=== PATIENT | female | born 1995 | race Caucasian/White ===

== ENCOUNTER 2023-05-02 11:08 | Emergency (ER) | payer OTHER, SELFPAY ==
[2023-05-02 11:26] VITALS: BP 129/76; PULSE 84; RESP 16; TEMP 37; O2SAT 98
[2023-05-02] MEDS: KETOROLAC (*BKC) 60 MG/2 ML VIAL IM (13:21)
--- NOTE | 2023-05-02 13:27 | ED.SKABFB ---
HPI - Skin/Abscess/Foreign Bdy General Chief complaint: Skin/Abscess/Foreign Body Stated complaint: rash for a few months Time Seen by Provider: 05/02/23 12:05 Source: patient and RN notes reviewed Mode of arrival: ambulatory Limitations: no limitations History of Present Illness HPI narrative: THis is a 27 year old female who presents for rash for months. Patient has itchy scaly rash in her scalp. She also reports rash to her arms. She reports she has been to multiple urgent cares and clinics but no one will prescribe her medication. She is using aveeno lotion and sensitive sore. She reports sore ness in joints. She denies fever. She is taking tylenol for her pain. Related Data Allergies Allergy/AdvReac Type Severity Reaction Status Date / Time No Known Allergies Allergy Verified 05/02/23 13:21 Review of Systems Musculoskeletal: Musculoskeletal: Reports arthralgias Integumentary/Breasts: Skin/Breast: Reports rash PMFSH Past Medical History Medical History Fibromyalgia Exam Const: General: no acute distress and alert Nutritional Appearance: well nourished Orientation/consciousness: patient oriented x3 Eyes: EOM: EOMs intact bilaterally Resp: Effort & Inspection: normal respiratory effort Skin: Other: patient has red squamous rash in patches on left forearm volar surface, right forearm dorsum, left lateral neck that look like eczema. She does have scaly rash in posterior scalp, no drainage no merritt crusting, no induration. Neuro: General: moves all extremities and CN's II-XI intact bilaterally Extrem: General: full ROM and other (no joint swelling , no rashes over joints) Course Vital Signs Vital signs: Vital Signs Temperature 98.6 F 05/02/23 11:26 Pulse Rate 84 05/02/23 11:26 Respiratory Rate 16 05/02/23 11:26 Blood Pressure 129/76 05/02/23 11:26 Pulse Oximetry 98 05/02/23 11:26 Oxygen Delivery Room Air 05/02/23 11:26 Temperature 98.6 F 05/02/23 11:26 Pulse Rate 84 05/02/23 11:26 Respiratory Rate 16 05/02/23 11:26 Blood Pressure 129/76 05/02/23 11:26 Pulse Oximetry 98 05/02/23 11:26 Oxygen Delivery Room Air 05/02/23 11:26 MDM - Skin/Abscess/Foreign Bdy Differential Diagnosis Differential diagnosis: Likely eczema, contact dermatitis and other (psoariasis) Discharge Plan Discharge Clinical Impression: Dermatitis Patient Disposition: Home, Self-Care Condition: Stable Instructions: Eczema (ED), Psoriasis (ED) Additional Instructions: Please read discharge instructions. Continue to follow up with your primary care provider in order to get your referral to [facility] as they will need to confirm your diagnosis and start your [facility] treatment. Prescriptions: New methylprednisolone [Medrol (Carlin)] 4 mg tablets,dose pack See Rx Instructions .ROUTE .COMPLEX Qty: 21 0RF Rx Instructions: orally per package directions naproxen 500 mg tablet 500 mg PO BID PRN (Reason: pain) Qty: 30 0RF hydrocortisone 2.5 % cream 1 applic topical BID PRN (Reason: rash) Qty: 30 0RF Follow-up/Referrals: PHYSICIAN NOT ON STAFF,NONSTAFF [Primary Care Provider] -
== END 2023-05-02 13:58 | disposition home or self-care (01) ==
PROVIDERS: Emergency Provider General Practice
DX: L30.9 Dermatitis, unspecified (principal); M79.7 Fibromyalgia
CPT/HCPCS: 96372; 99283; J1885

== ENCOUNTER 2023-11-29 12:45 | Observation (INO) | payer OTHER, SELFPAY ==
[2023-11-29] VITALS (20 sets, daily range): BP systolic 112–133; BP diastolic 65–82; PULSE 78–99; RESP 12–28; TEMP 36.6; O2SAT 99–100; BMI 21.7
--- NOTE | ~2023-11-29 | CT_ITS ---
EXAMINATION: CT cervical spine wo con DATE: 11/29/2023 13:40 INDICATION: Bilateral arm numbness. TECHNIQUE: Computed tomography (CT) of the cervical spine was performed without intravenous contrast. Automated exposure control and iterative reconstruction technique were employed. The dose-length pro duct was 147.92 mGy-cm. COMPARISON: None FINDINGS: There is kyphosis of cervical spine. There is a chronic compression fracture of T4 with les s than 1/5 loss of height. There is 7 degrees levocurvature of cervical thoracic spine. Intervertebra l disc heights are normal. The following disc levels are specifically discussed: C2-C3: There is no uncovertebral joint osteoarthritis. There is severe left facet joint osteoarthriti s. There is no neural foraminal stenosis. There is no central canal stenosis. C3-C4: There is no uncovertebral joint osteoarthritis. There is no facet joint osteoarthritis. There is no neural foraminal stenosis. There is no central canal stenosis. C4-C5: There is no uncovertebral joint osteoarthritis. There is no facet joint osteoarthritis. There is no neural foraminal stenosis. There is no central canal stenosis. C5-C6: There is no uncovertebral joint osteoarthritis. There is no facet joint osteoarthritis. There is no neural foraminal stenosis. There is no central canal stenosis. C6-C7: There is no uncovertebral joint osteoarthritis. There is no facet joint osteoarthritis. There is no neural foraminal stenosis. There is no central canal stenosis. C7-T1: There is no uncovertebral joint osteoarthritis. There is mild bilateral facet joint osteoarthr itis. There is no neural foraminal stenosis. There is no central canal stenosis. IMPRESSION: 1. Cervical facet joint osteoarthritis. Reviewed, dictated and finalized at location A.
--- NOTE | ~2023-11-29 | MR_ITS ---
EXAMINATION: MR thoracic spine wo/w con DATE: 11/30/2023 13:34 INDICATION: Intermittent weakness and numbness. TECHNIQUE: Magnetic resonance imaging (MRI) of the thoracic spine was performed without and with 11 m L MultiHance intravenous contrast. COMPARISON: None FINDINGS: There is 9 degrees levocurvature of the cervicothoracic spine. There is mild chronic height loss of T4 vertebral body. Intervertebral disc heights are normal. The disks do not extend beyond th e endplate margins. There is multilevel mild facet joint osteoarthritis. No neural foraminal stenosis or central canal stenosis. The spinal cord signal intensity is normal. IMPRESSION: 1. Mild thoracic facet joint osteoarthritis. Reviewed, dictated and finalized at location E.
--- NOTE | ~2023-11-29 | CT_ITS ---
EXAMINATION: CT brain wo con DATE: 11/29/2023 13:39 INDICATION: Right visual field loss. Bilateral arm numbness. TECHNIQUE: Computed tomography (CT) of the head was performed without intravenous contrast. The mA wa s adjusted according to patient size. Iterative reconstruction technique was employed. The dose-lengt h product was 681.00 mGy-cm. COMPARISON: None FINDINGS: There is no intracranial hemorrhage, acute infarction, or abnormal intracranial mass lesion . The ventricles are normal in size. The orbits are normal. There is mild mucosal thickening in the e thmoid sinuses. The mastoid air cells are normal. IMPRESSION: 1. Normal brain. Reviewed, dictated and finalized at location A. IMPRESSION: 1. Normal brain.
--- NOTE | ~2023-11-29 | MR_ITS ---
EXAMINATION: MR lumbar spine wo/w con DATE: 11/30/2023 13:34 INDICATION: Intermittent weakness/numbness . TECHNIQUE: Magnetic resonance imaging (MRI) of the lumbar spine was performed with 11 mL MultiHance i ntravenous contrast. Sequences included sagittal T2-weighted FSE, sagittal T2-weighted FS FSE, sagitt al T1-weighted FSE, and axial T2-weighted FSE. Postcontrast sequences included sagittal T1 FSE FS and axial T1 FSE FS. COMPARISON: None FINDINGS: The last fully formed and hydrated disc is designated L5-S1. The marrow signal is benign an d homogenous. Conus terminates at L1. Multilevel loss of disc height and hydration. The following dis c levels are specifically discussed: T12-L1: The disc does not extend beyond the endplate margin. There is no facet joint osteoarthritis. There is no neural foraminal stenosis. There is no central canal stenosis. L1-L2: The disc does not extend beyond the endplate margin. There is no facet joint osteoarthritis. T here is no neural foraminal stenosis. There is no central canal stenosis. L2-L3: The disc does not extend beyond the endplate margin. There is no facet joint osteoarthritis. T here is no neural foraminal stenosis. There is no central canal stenosis. L3-L4: Mild diffuse bulge. There is mild facet joint osteoarthritis. There is mild right inferior hilton ral foraminal stenosis. No left neural foraminal stenosis. There is no central canal stenosis. L4-L5: Mild diffuse bulge. Posterior disc rent. There is mild bilateral facet joint osteoarthritis. T here is mild bilateral inferior neural foraminal stenosis. There is mild central canal stenosis. L5-S1: Mild diffuse disc bulge. Posterior disc rent. There is mild bilateral facet joint osteoarthrit is. There is no neural foraminal stenosis. There is no central canal stenosis. IMPRESSION: Mild degenerative disc disease at L3-4 through L5-S1. Mild lower lumbar facet arthropathy. Reviewed, dictated and finalized at location K. IMPRESSION: Mild degenerative disc disease at L3-4 through L5-S1. Mild lower lumbar facet a rthropathy.
--- NOTE | ~2023-11-29 | MR_ITS ---
EXAMINATION: MR brain/brain stem wo/w con DATE: 11/30/2023 13:34 INDICATION: Visual field loss, intermittent weakness/numbness TECHNIQUE: Magnetic resonance imaging (MRI) of the brain and brainstem was performed with 11 mL Multi Demond intravenous contrast. Sequences included sagittal and axial T1-weighted SE, axial diffusion-shaye ghted FS EPI ASSET, axial T2*-weighted GRE, axial T2-weighted FLAIR Propeller, and axial T2-weighted Propeller. Postcontrast axial and coronal T1-weighted SE was obtained. Apparent diffusion coefficient (ADC) maps were created. COMPARISON: CT brain 11/29/2023. FINDINGS: No abnormal restricted diffusion to suggest acute ischemic infarct. No MRI evidence of hemorrhage or extra-axial collection. No suspicious foci of susceptibility to suggest prior intraparenchymal hemorr darell. Normal white matter signal. No evidence of advanced or lobar predominant parenchymal volume los s. The basilar cisterns are patent. Flow voids are preserved. Paranasal sinuses are within normal espana its. Globes and orbital contents are within normal limits. No abnormal enhancing lesion. IMPRESSION: Normal MR brain findings. Reviewed, dictated and finalized at location K. IMPRESSION: Normal MR brain findings.
--- NOTE | ~2023-11-29 | XR_ITS ---
EXAMINATION: XR chest 2V DATE: 11/29/2023 13:45 INDICATION: Lightheadedness. TECHNIQUE: Frontal and lateral views of the chest were obtained. COMPARISON: None. FINDINGS: There is no pneumonia, pleural effusion, or pneumothorax. The heart size is normal. IMPRESSION: 1. No acute cardiopulmonary disease. Reviewed, dictated and finalized at location A.
--- NOTE | ~2023-11-29 | MR_ITS ---
EXAMINATION: MR cervical spine wo/w con DATE: 11/30/2023 13:34 INDICATION: Intermittent weakness and numbness. TECHNIQUE: Magnetic resonance imaging (MRI) of the cervical spine was performed without and with 11 m L MultiHance intravenous contrast. COMPARISON: CT cervical spine 11/29/2023 FINDINGS: There is 8 degrees levocurvature of cervicothoracic spine. There is kyphosis of cervical sp ine. Vertebral body heights and intervertebral disc heights are normal. The spinal cord signal intens ity is normal. The following disc levels are specifically discussed: C2-C3: The disc does not extend beyond the endplate margin. There is no uncovertebral joint osteoarth ritis. There is moderate right and severe left facet joint osteoarthritis. There is mild left neural foraminal stenosis. There is no central canal stenosis. C3-C4: The disc does not extend beyond the endplate margin. There is no uncovertebral joint osteoarth ritis. There is no facet joint osteoarthritis. There is no neural foraminal stenosis. There is no vince tral canal stenosis. C4-C5: There is a central protrusion. There is no uncovertebral joint osteoarthritis. There is mild b ilateral facet joint osteoarthritis. There is no neural foraminal stenosis. There is no central canal stenosis. C5-C6: There is a central protrusion. There is mild bilateral uncovertebral joint osteoarthritis. The re is no facet joint osteoarthritis. There is no neural foraminal stenosis. There is no central canal stenosis. C6-C7: There is a central protrusion. There is mild bilateral uncovertebral joint osteoarthritis. The re is moderate right and mild left facet joint osteoarthritis. There is mild bilateral neural foramin al stenosis. There is no central canal stenosis. C7-T1: The disc does not extend beyond the endplate margin. There is no uncovertebral joint osteoarth ritis. There is severe right and moderate left facet joint osteoarthritis. There is mild right neural foraminal stenosis. There is no central canal stenosis. IMPRESSION: 1. Mild cervical spondylosis. Reviewed, dictated and finalized at location E.
[2023-11-29 13:36] LABS: Basophils Percent Auto 0.7 % (0.2-1.2); Eosinophils Absolute Auto 0.2 K/mm3 (0-0.3); Eosinophils Percent Auto 5.4 % (0-4.4); Hematocrit 35.9 % (37.0-47.0); Hemoglobin 11.5 g/dL (12.0-15.0); Immature Granulocyte Absolute 0.01 K/mm3 (0.00-0.031); Immature Granulocyte Percent A 0.2 % (0-0.5); Lymphocytes Absolute Auto 1.25 K/mm3 (0.9-3.2); Lymphocytes Percent Auto 28.2 % (18.3-44.2); Mean Corpuscular Hemoglobin 29.3 pg (26-34); Mean Corpuscular Volume 91.3 fl (80-100); Monocytes Absolute Auto 0.3 K/mm3 (0.1-0.6); Monocytes Percent Auto 6.3 % (2.6-8.5); Neutrophils Absolute Auto 2.6 K/mm3 (1.3-6.7); Neutrophils Percent Auto 59.2 % (45.5-73.1); Platelet Count Result 365 k/mm3 (150-375); Red Blood Count 3.93 M/mm3 (4.2-5.4); Red Cell Distribution Width 13.2 % (11.5-14.5); White Blood Count 4.4 K/mm3 (4.5-10.0)
[2023-11-29 13:48] LABS: Alanine Aminotransferase 22 U/L (6-35); Albumin Level 4.1 g/dL (3.5-5.1); Alkaline Phosphatase 42 U/L (38-126); Anion Gap 8 mmol/L (4-12); Aspartate Amino Transferase 23 U/L (14-36); Bilirubin,Total 0.4 mg/dL (0.2-1.3); Blood Urea Nitrogen 10 mg/dL (7-17); Calcium 9.2 mg/dL (8.4-10.2); Carbon Dioxide 22 mmol/L (22-30); Chloride 111 mmol/L (98-107); Estimated CRCL calculation 85 ml/min; Estimated Glomerular Filt Rate > 60; Glucose 94 mg/dL (65-110); Potassium 4.1 mmol/L (3.4-5.0); Sodium 141 mmol/L (137-145)
--- NOTE | 2023-11-29 14:02 | ED.NEUROSD ---
HPI - Neuro Symptoms/Deficit General Chief Complaint: Neuro Symptoms/Deficit Stated Complaint: numbness to extremities x4 days Time Seen by Provider: 11/29/23 12:55 History of Present Illness HPI Narrative: This is a 20 year female, with no significant past medical history, presents emergency department with several complaints. She states over the past 4 days, she has noticed swelling at the 2nd MCP, intermittent numbness at the right lateral distal thigh and proximal foreleg, and intermittent left arm weakness. She has also noticed intermittent darkening of her vision in her right eye. She states over the past year, she has had an unanticipated 100 lb weight loss. She denies fevers, night sweats, bleeding, or rash. Related Data Allergies Allergy/AdvReac Type Severity Reaction Status Date / Time No Known Allergies Allergy Verified 11/29/23 13:06 Review of Systems Review of Systems: All systems reviewed & are unremarkable except as noted in HPI and below (HPI) PMFSH Past Medical History Medical History (Updated 11/29/23 @ 19:38 by Joel Adams MD) Fibromyalgia Surgical History Surgical History (Updated 11/29/23 @ 14:06 by Joel Adams MD) No significant past surgical history Social History Social History (Updated 11/29/23 @ 14:07 by Joel Adams MD) Smoking status: Never smoker Alcohol intake: never Substance use: never Exam Narrative: GENERAL: Well-developed, thin, and in no acute distress. HEAD: Normocephalic, atraumatic. EYES: PERRLA and EOMI. Funduscopic exam unremarkable. Decreased right inferior visual field range ENT: Nares clear, no rhinorrhea or epistaxis. Mucous membranes moist. Oropharynx without tonsillar hypertrophy exudate or other lesions. Bilateral TMs pearly hernandez nonbulging NECK: Supple. Mild midline tenderness to palpation at C3 without step-off or crepitus CHEST: Clear to auscultation. No respiratory distress. No wheezes rales or rhonchi HEART: Regular rate and rhythm. No murmur heard. Normal peripheral pulses. ABDOMEN: Soft, nontender, nondistended, normal active bowel sounds. BACK: No midline tenderness to palpation at C3 without step-off or crepitus EXTREMITIES: Normal range of motion. No edema. SKIN: Warm, dry, no rash. NEURO: Alert and oriented x3. No focal deficit. Moving all 4 limbs spontaneously. Cranial nerves 2-12 intact PSYCH: Normal mood and affect. Course Course Emergency Course: 14:08 - CBC demonstrates a mildly decreased white blood cell count of 4.4 and anemia with hemoglobin of 11.5 but otherwise unremarkable. Chemistries demonstrate slightly decreased chloride of 111 but is otherwise unremarkable. CT of the head not concerning for intracranial mass or hemorrhage. CT cervical spine not concerning for fracture or dislocation. Chest x-ray unremarkable. 15:46 - I discussed the patient with neurologist, Dr. Vasquez. Multiple sclerosis is possible. Will admit for MRI with Neurology consultation. I discussed the patient with hospitalist, MECHELLE Torres who accepts admission. Vital Signs Vital signs: Vital Signs Temperature 97.8 F 11/29/23 12:45 Pulse Rate 99 11/29/23 12:45 Respiratory Rate 20 11/29/23 12:45 Blood Pressure 133/72 11/29/23 12:45 Pulse Oximetry 100 11/29/23 12:45 Oxygen Delivery Room Air 11/29/23 12:45 Temperature 97.8 F 11/29/23 12:45 Pulse Rate 81 11/29/23 16:39 Respiratory Rate 12 11/29/23 16:39 Blood Pressure 112/75 11/29/23 16:39 Pulse Oximetry 100 11/29/23 16:39 Oxygen Delivery Room Air 11/29/23 12:45 MDM - Neuro Symptoms/Deficit MDM Narrative Medical decision making narrative: Plan: Labs, imaging, bedside ultrasound, reassess Differential Diagnosis Differential diagnosis: Likely other (Intracranial mass, intracranial hemorrhage, malignancy, , metabolic abnormality, other) Lab Data 11/29/23 13:31 11/29/23 13:31 Labs: Lab Results
[2023-11-29] MEDS: ACETAMINOPHEN 500 MG TABLET 1000 MG PO (14:36)
--- NOTE | 2023-11-29 17:00 | PC.NURSE ---
Meal tray ordered for pt
--- NOTE | 2023-11-29 19:16 | PC.NURSE ---
Report received from NUBIA Wiley. Assumed care of patient at this time. Patient waiting for bed placement for admission.
[2023-11-29] MEDS: KETOROLAC 30 MG/ML VIAL (*BKC) IV PUSH (19:50)
[2023-11-29] MEDS: ACETAMINOPHEN 325 MG TABLET 650 MG PO (19:50)
--- NOTE | 2023-11-29 21:15 | PM.IMHP ---
H&P: HPI History of Present Illness Date/Time: 11/29/23 21:15 Chief Complaint: numbness Narrative: This is a 28-year-old female with past medical history significant for generalized anxiety disorder, patient presents to the emergency room due to numbness and tingling of very use sides of her body on the right hemibody mainly lateral aspect of her lower extremity and right-sided of her face patient states that she has had also tunnel vision of the right eye, has had over 100 lb loss in the last roughly 16 months unintentional patient also complains of swelling of the hands and tenderness at the PIP joint. Patient denies any rashes, stiffness, fevers, chills, rigors denies any loss of appetite states that she has been eating the same amount of calories there has been no reduction in her oral intake. EXAMINATION: CT brain wo con DATE: 11/29/2023 13:39 INDICATION: Right visual field loss. Bilateral arm numbness. TECHNIQUE: Computed tomography (CT) of the head was performed without intravenous contrast. The mA was adjusted according to patient size. Iterative reconstruction technique was employed. The dose-length product was 681.00 mGy-cm. COMPARISON: None FINDINGS: There is no intracranial hemorrhage, acute infarction, or abnormal intracranial mass lesion. The ventricles are normal in size. The orbits are normal. There is mild mucosal thickening in the ethmoid sinuses. The mastoid air cells are normal. IMPRESSION: 1. Normal brain. EXAMINATION: CT cervical spine wo con DATE: 11/29/2023 13:40 INDICATION: Bilateral arm numbness. TECHNIQUE: Computed tomography (CT) of the cervical spine was performed without intravenous contrast. Automated exposure control and iterative reconstruction technique were employed. The dose-length product was 147.92 mGy-cm. COMPARISON: None FINDINGS: There is kyphosis of cervical spine. There is a chronic compression fracture of T4 with less than 1/5 loss of height. There is 7 degrees levocurvature of cervical thoracic spine. Intervertebral disc heights are normal. The following disc levels are specifically discussed: C2-C3: There is no uncovertebral joint osteoarthritis. There is severe left facet joint osteoarthritis. There is no neural foraminal stenosis. There is no central canal stenosis. C3-C4: There is no uncovertebral joint osteoarthritis. There is no facet joint osteoarthritis. There is no neural foraminal stenosis. There is no central canal stenosis. C4-C5: There is no uncovertebral joint osteoarthritis. There is no facet joint osteoarthritis. There is no neural foraminal stenosis. There is no central canal stenosis. C5-C6: There is no uncovertebral joint osteoarthritis. There is no facet joint osteoarthritis. There is no neural foraminal stenosis. There is no central canal stenosis. C6-C7: There is no uncovertebral joint osteoarthritis. There is no facet joint osteoarthritis. There is no neural foraminal stenosis. There is no central canal stenosis. C7-T1: There is no uncovertebral joint osteoarthritis. There is mild bilateral facet joint osteoarthritis. There is no neural foraminal stenosis. There is no central canal stenosis. IMPRESSION: 1. Cervical facet joint osteoarthritis. EXAMINATION: XR chest 2V DATE: 11/29/2023 13:45 INDICATION: Lightheadedness. TECHNIQUE: Frontal and lateral views of the chest were obtained. COMPARISON: None. FINDINGS: There is no pneumonia, pleural effusion, or pneumothorax. The heart size is normal. IMPRESSION: 1. No acute cardiopulmonary disease. Review of Systems Review of Systems: Weight loss, numbness, tingling, tunnel vision of the right eye. Constitutional: Constitutional: Denies anorexia, Denies body ache(s), Denies chills, Denies fatigue, Denies fever(s), Denies headache(s), Denies malaise, Denies night sweats, Denies poor appetite and Denies weakness Eyes: Eyes: Reports change in vision, Reports loss of vision and Reports oth
--- NOTE | 2023-11-29 22:56 | ADMGEN ---
This patient, Gina Cuba, was admitted to Medical Room 348-01. Patient/family oriented to hospital policies and general routines including ID bracelet, bed and alarms, visiting hours, pain management, procedures, bathroom and other care routines, personal items, smoking policy, room service/diet, and visiting hours. Information on how to activate the Rapid Response Team has been discussed. Patient/Family are encouraged to report perceived risks to care and to ask questions if they do not understand what they are told or what they should do.
[2023-11-30 00:16] VITALS: BP 118/88; PULSE 87; RESP 20; TEMP 36.6; O2SAT 100
[2023-11-30 00:20] VITALS: PULSE 87; RESP 20; O2SAT 100
[2023-11-30] MEDS: HYDROmorphone HCL INJ (*CRX) 1 MG/ML SYR IV PUSH ×3 (02:06→20:49)
--- NOTE | 2023-11-30 02:11 | PHAR ---
Pt's is able to bring in medication from home.
[2023-11-30 05:46] LABS: Basophils Percent Auto 0.7 % (0.2-1.2); Eosinophils Absolute Auto 0.2 K/mm3 (0-0.3); Eosinophils Percent Auto 5.2 % (0-4.4); Hemoglobin 11.5 g/dL (12.0-15.0); Immature Granulocyte Absolute 0.01 K/mm3 (0.00-0.031); Immature Granulocyte Percent A 0.2 % (0-0.5); Lymphocytes Absolute Auto 2.18 K/mm3 (0.9-3.2); Lymphocytes Percent Auto 49.3 % (18.3-44.2); Mean Corpuscular HGB Conc 31.1 g/dl (32-36); Mean Corpuscular Hemoglobin 29.3 pg (26-34); Mean Corpuscular Volume 94.1 fl (80-100); Mean Platelet Volume 9.1 fl (7.4-10.4); Monocytes Absolute Auto 0.4 K/mm3 (0.1-0.6); Monocytes Percent Auto 7.9 % (2.6-8.5); Neutrophils Absolute Auto 1.6 K/mm3 (1.3-6.7); Neutrophils Percent Auto 36.7 % (45.5-73.1); Platelet Count Result 329 k/mm3 (150-375); Red Blood Count 3.93 M/mm3 (4.2-5.4); White Blood Count 4.4 K/mm3 (4.5-10.0)
[2023-11-30 05:58] LABS: Anion Gap 8 mmol/L (4-12); Blood Urea Nitrogen 9 mg/dL (7-17); Calcium 8.9 mg/dL (8.4-10.2); Carbon Dioxide 23 mmol/L (22-30); Chloride 109 mmol/L (98-107); Estimated CRCL calculation 85 ml/min; Estimated Glomerular Filt Rate > 60; Glucose 86 mg/dL (65-110); Potassium 3.4 mmol/L (3.4-5.0); Sodium 140 mmol/L (137-145)
[2023-11-30 06:00] VITALS: BP 127/83; PULSE 81; RESP 20; TEMP 36.1; O2SAT 100
[2023-11-30] MEDS: buPROPion HCL XL (24 HR) 150 MG TABCR PO (08:03)
[2023-11-30] MEDS: KETOROLAC 30 MG/ML VIAL (*BKC) IV PUSH ×2 (08:03→14:25)
[2023-11-30] MEDS: LORazepam INJ (*CRX) 2 MG/ML VIAL 1 MG IV PUSH (11:28)
--- NOTE | 2023-11-30 11:34 | PC.NURSE ---
ativan given prior to MRI per orders
--- NOTE | 2023-11-30 11:50 | PC.NURSE ---
pt to MRI via wheelchair
--- NOTE | 2023-11-30 12:28 | WPDNEURCNPN ---
Assessment and Plan Assessment and plan (1) Weight loss: Code(s): R63.4 - Abnormal weight loss Status: Acute (2) Changes in vision: Code(s): H53.9 - Unspecified visual disturbance Status: Acute (3) Joint pain in fingers of both hands: Code(s): M25.541 - Pain in joints of right hand; M25.542 - Pain in joints of left hand Status: Acute (4) Visual loss, right eye: Code(s): H54.61 - Unqualified visual loss, right eye, normal vision left eye Status: Acute (5) Numbness and tingling of right leg: Code(s): R20.0 - Anesthesia of skin; R20.2 - Paresthesia of skin Status: Acute (6) Left arm weakness: Code(s): R29.898 - Other symptoms and signs involving the musculoskeletal system Status: Acute Plan 1. Widespread neurological symptomatology and younger a ruling out the possibility of demyelinating disease and subsequently neuropathy in addition to the history of significant weight loss once the neurological investigations are completed further studies can be carried out. Consult date: 11/30/23 HPI: Gina Cuba is a 28 year old female Admitted to the hospital through the emergency room for the complaints of intermittent numbness of the right lateral thigh and proximal leg in addition to intermittent left upper extremity weakness and darkening of the vision in her right eye and also on anti suppurative 100lb weight loss. Not allergic to any medications, history of fibromyalgia, currently everyday smoking but no alcohol , and initial exam in the emergency room no focal neurological deficit, CBC normal with hemoglobin of 11.5 and WBC of 4.4 BMP normal routine lab normal has been taking Wellbutrin 150mg daily 10mg twice a day. [facility] Past Medical History Medical History (Updated 11/30/23 @ 03:52 by Nichole Walsh MD) Fibromyalgia Surgical History Surgical History (Updated 11/29/23 @ 14:06 by Joel Adams MD) No significant past surgical history Social History Social History (Updated 11/29/23 @ 14:07 by Joel Adams MD) Smoking status: Current every day smoker Tobacco type: e-cigarettes/vaping Additional smoking assessment comments: MAINLY DURING NAPTIME, NOT VERY OFTEN Alcohol intake: never Substance use: current Substance use type: marijuana Other substance usage details: SMOKE Last use: 11/29/2023 Do You Feel Safe in your Home?: Yes Lack of Transportation: No Lack of Food: Never True Current Housing: I Have Housing Concerned About Future Housing: No Difficulty Paying Gas/Electric Bills: No Difficulty Paying for Meds: No Currently Unemployed: No Education: Trade/Vocational Certificate Difficulty w/ Childcare or Family Care: No Spiritual care concerns: No Meds Home Medications and Allergies Home Medications Medication Instructions Recorded Confirmed Type bupropion HCl 150 mg 24 hr tablet, 150 mg PO QAM 11/29/23 11/29/23 History extended release dextroamphetamine-amphetamine 10 10 mg PO BID 11/29/23 11/29/23 History mg tablet Allergies Allergy/AdvReac Type Severity Reaction Status Date / Time No Known Allergies Allergy Verified 11/29/23 13:06 Vital Signs Vital Signs - 24 hr 11/29/23 12:45 11/29/23 13:01 11/29/23 13:03 Temperature 36.6 C Pulse Rate 99 92 96 Respiratory Rate 20 18 Blood Pressure 133/72 116/77 Pulse Oximetry 100 100 Oxygen Delivery Room Air 11/29/23 13:03 11/29/23 13:55 11/29/23 14:35 Temperature Pulse Rate 96 98 80 Respiratory Rate 18 19 13 Blood Pressure 116/77 120/82 114/65 Pulse Oximetry 100 100 100 Oxygen Delivery 11/29/23 16:39 11/29/23 19:55 11/29/23 19:56 Temperature Pulse Rate 81 81 82 Respiratory Rate 12 12 20 Blood Pressure 112/75 112/75 121/78 Pulse Oximetry 100 100 100 Oxygen Delivery 11/29/23 21:28 11/29/23 22:30 11/29/23 19:08 Temperature Pulse Rate 79 79 86 Respiratory Rate 20 1
--- NOTE | 2023-11-30 12:40 | PM.IMPN ---
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 Chest x-ray was negative Neurology consulted Continue neuro checks Plan for MRI of the brain, cervical spine, thoracic spine, and lumbar spine today (2) Weight loss: Code(s): R63.4 - Abnormal weight loss Status: Acute Assessment and Plan: 11/30/2023: Patient reports 120 lb weight loss over the past year that was unintentional, unknown origin Patient states that she eats and drinks normally (3) Changes in vision: Code(s): H53.9 - Unspecified visual disturbance Status: Acute Assessment and Plan: 11/30/2023: Patient reports darkening vision in her right eye that is intermittent however has progressively gotten worse She does were glasses however it was an old prescription (4) Joint pain in fingers of both hands: Code(s): M25.541 - Pain in joints of right hand; M25.542 - Pain in joints of left hand Status: Acute Assessment and Plan: 11/30/2023: Reporting pain and swelling and 2nd MCP Continue Toradol for pain control Continue to monitor (5) Numbness and tingling in both hands: Code(s): R20.0 - Anesthesia of skin; R20.2 - Paresthesia of skin Status: Acute Assessment and Plan: 11/30/23: Reporting numbness in bilateral thumbs and bilateral pointer fingers and the tip of the 3rd index finger, she reports pain and swelling as well that is intermittent. She reports her pain 02/28 [place] ordered for pain control (6) Tinnitus: Code(s): H93.19 - Tinnitus, unspecified ear Status: Acute Assessment and Plan: 11/30/23: Reports ringing in the ears bilaterally that never really goes away just changes sound frequency Time Spent With Patient Time with patient: Greater than 35 minutes Subjective Date/time seen: 11/30/23 12:40 Interval history: This is a 28 year old female with a significant past medical history of fibromyalgia who presented to the hospital on 11/29/2023 with complaints of numbness and tingling at the right lateral distal thigh and proximal and moreno. She also reports left arm weakness and swelling to her 2nd MCP. She states over the past year she has had a known anticipated 100 lb weight loss and noticed darkening of her vision in her right eye. Patient denies any fever, chills, nausea, vomiting, diarrhea, abdominal pain, chest pain, shortness a breath. She reports numbness to her thumb and pointer finger and the tip of her 3rd finger, she reports pain in both hands shoulders and hips that she rates 8/10, she reports blurred vision in her right eye, ringing in both ears which never goes away it just changes frequency, she reports numbness intermittently and her toes, numbness on the right side of her calf and knee, and tremors in bilateral hands. When asked about family history she states that she is adopted and she does not have any informations regarding family past medical history. Workup in the hospital included a head CT which showed a normal brain. She had a cervical spine CT which showed cervical fossa joint osteoarthritis. Chest x-ray was negative. Patient had a brain, cervical spine, lumbar spine, thoracic spine MRI today with results pending. Labs today show a white blood cell count of 4.4, RBC 3.93, hemoglobin 11.5, platelet count is 329, otherwise unremarkable. Patient was given Toradol, Zofran, Tylenol, Ativan x2 in the ED. neurology was consulted. Review of Systems Review of Systems: All systems reviewed & are unremarkable except as noted
[2023-11-30 14:20] VITALS: BP 118/73; PULSE 79; RESP 19; TEMP 36.5; O2SAT 100
--- NOTE | 2023-11-30 14:33 | PC.NURSE ---
home med brought in by , confirmed by pharmacy 2 pills brought in, locked in [email or web address] as it is a narcotic
--- NOTE | 2023-11-30 14:34 | PHAR ---
Pharmacy verified home med: * Use from home * Dextroamphetamine-Amphetamine 20 mg tablet take 1 tablet by mouth twice daily
[2023-11-30 20:00] VITALS: PULSE 79; RESP 19; O2SAT 100
[2023-11-30 21:45] VITALS: BP 132/87; PULSE 72; RESP 20; TEMP 36.4; O2SAT 100
[2023-12-01] MEDS: HYDROmorphone HCL INJ (*CRX) 1 MG/ML SYR IV PUSH (03:44)
[2023-12-01 06:00] VITALS: BP 107/60; PULSE 56; RESP 20; TEMP 36.1; O2SAT 99
[2023-12-01] MEDS: HYDROcodone/acetaminophen (*CRX) 5-325 MG TABLET PO (08:50)
[2023-12-01] MEDS: buPROPion HCL XL (24 HR) 150 MG TABCR PO (08:51)
[2023-12-01 09:55] LABS: CRP < 0.5 mg/dL (<1.0)
[2023-12-01 10:24] LABS: Creatine Kinase 94 U/L (30-135)
[2023-12-01 10:30] LABS: Thyroid Stimulating Hormone Reflex 0.784 uIU/mL (0.465-4.68)
[2023-12-01 10:48] LABS: Erythrocyte Sedimentation Rate 15 mm/hr (0-20)
[2023-12-01 10:59] LABS: Folic Acid 8.2 ng/mL (2.76->20)
--- NOTE | 2023-12-01 12:58 | PC.NURSE ---
pt moving around in room, had misplaced Apple pencil, moving independent in room, she was lifting up backpacks and blankets and moving computer off table, found on breakfast tray
--- NOTE | 2023-12-01 13:25 | WPDNEUROPN ---
Subjective Date/time seen: 12/01/23 13:25 Interval history: 28 years old with ongoing complaint of right lower extremity numbness and with negative CT scan of the brain, negative MRI of the brain, cervical spine, thoracic spine, and lumbar spine as well for N intrinsic or extrinsic disease at this stage no changes in neurological finding she will benefit from the EMG and nerve conduction study as an outpatient of the lower extremities at this stage she was assured that before that further intervention is necessary. Objective Data Vital Signs Vital Signs: Vital Signs - 24 hr 11/30/23 14:20 11/30/23 20:00 11/30/23 21:45 Temperature 36.5 C 36.4 C Pulse Rate 79 79 72 Respiratory Rate 19 19 20 Blood Pressure 118/73 132/87 Pulse Oximetry 100 100 100 Oxygen Delivery Room Air 12/01/23 06:00 12/01/23 08:40 Temperature 36.1 C L Pulse Rate 56 L Respiratory Rate 20 Blood Pressure 107/60 Pulse Oximetry 99 Oxygen Delivery Room Air Intake/Output Intake/Output: Intake & Output 11/28/23 11/29/23 11/30/23 12/01/23 23:59 23:59 23:59 23:59 Intake Total 890 500 Balance 890 500 Meds/Results Medications: Active Medications Generic Name Dose Route Start Last Admin Trade Name Freq PRN Reason Stop Dose Admin Acetaminophen 1,000 mg 12/01/23 09:34 Acetaminophen 500 Mg Tablet PO Q6H PRN Pain 1-3 or fever Al Hydrox/Mg Hydrox/Simethicone 30 ml 11/30/23 01:24 Mag Hydrox/Al Hydrox/Simeth 30 Ml Udc PO Q6H PRN Indigestion Bupropion HCl 150 mg 11/30/23 09:00 12/01/23 08:51 Bupropion Hcl Xl (24 Hr) 150 Mg Tabcr PO 150 mg QAM LIVIA Administration Enoxaparin Sodium 40 mg 11/30/23 15:00 12/01/23 08:54 Enoxaparin 40 Mg/0.4 Ml Syringe SUB-Q Not Given DAILY LIVIA Non-Formulary Medication 20 mg 11/30/23 15:30 12/01/23 08:51 Dextroamphetamine-Amphetamine PO 12/30/23 15:29 20 mg 0900,1500 LIVIA Administration Ondansetron HCl 4 mg 11/30/23 01:24 Ondansetron Inj 4 Mg/2 Ml Vial IV PUSH Q6H PRN Nausea And Vomiting Polyethylene Glycol 17 gm 11/30/23 01:24 Polyethylene Glycol 3350 17 Gm Powd.Pack PO QAM PRN Constipation Radiology Results: ITS Impressions Head CT 11/29/23 13:40 IMPRESSION: 1. Normal brain. Cervical Spine CT 11/29/23 13:41 IMPRESSION: 1. Cervical facet joint osteoarthritis. Chest X-Ray 11/29/23 14:01 IMPRESSION: 1. No acute cardiopulmonary disease. Brain MRI 11/30/23 18:08 IMPRESSION: Normal MR brain findings. Lumbar Spine MRI 11/30/23 20:19 IMPRESSION: Mild degenerative disc disease at L3-4 through L5-S1. Mild lower lumbar facet arthropathy. Cervical Spine MRI 12/01/23 08:21 IMPRESSION: 1. Mild cervical spondylosis. Thoracic Spine MRI 12/01/23 08:24 IMPRESSION: 1. Mild thoracic facet joint osteoarthritis. Labs Labs: Laboratory Results - last 24 hr 12/01/23 12/01/23 08:23 08:27 ESR 15 Total Creatine Kinase 94 C-Reactive Protein < 0.5 Vitamin B12 817.0 Folate 8.2 TSH (Reflex) 0.784
--- NOTE | 2023-12-01 14:09 | PM.DS ---
DS: Admitting Diagnosis Discharge Date 12/01/23 Admitting Diagnosis See below DS: Discharge Diagnosis Discharge Diagnosis (1) Numbness and tingling of right leg: Code(s): R20.0 - Anesthesia of skin; R20.2 - Paresthesia of skin Status: Acute (2) Weight loss: Code(s): R63.4 - Abnormal weight loss Status: Acute (3) Changes in vision: Code(s): H53.9 - Unspecified visual disturbance Status: Acute (4) Joint pain in fingers of both hands: Code(s): M25.541 - Pain in joints of right hand; M25.542 - Pain in joints of left hand Status: Acute (5) Numbness and tingling in both hands: Code(s): R20.0 - Anesthesia of skin; R20.2 - Paresthesia of skin Status: Acute (6) Tinnitus: Code(s): H93.19 - Tinnitus, unspecified ear Status: Acute DS: Summary Hospital Course Hospital Course: Patient is a 28-year-old female who presented emergency room for numbness and tingling to various parts of her body more notably on the right lower extremity with vision changes and weight loss. Patient was admitted for demyelination workup. There were no enhancing lesions on the MRI of the brain, cervical spine, thoracic spine or lumbar spine. B12, TSH, CRP, ESR, and CK were normal. No infection suspected. Patient has history of weight loss. She also has mention joint swelling but nothing noticeable on exam. She was instructed to follow-up with her primary care physician for workup of of her weight loss and various symptoms. No further need of hospitalization at this time. She is also going to follow up with Neurology for EMG. Of note, she mentions that she has a history of pituitary tumor but is not mentioned on the MRI. She said this is non active. She specifically denies changes to her cycle, , and her TSH was normal. She is to follow up with Neurology for this. She did not admit to any viral-like symptoms and no infection was suspected. We discussed the worrisome signs and symptoms come back to emergency room for and she was discharged in stable condition. Status at Discharge Cognitive/behavioral status at discharge: Stable Time Spent with Patient Time attestation: Total time spent providing and/or coordinating discharge services: 35 Time spent: Greater than 30 minutes Exam Narrative: General: Well developed well nourished patient in NAD HEENT: normocephalic Neck: supple Neuro: Alert and oriented x4. Cranial nerves 2-12 intact. Equal strength in the upper lower extremities 5/5. Sensation equal and normal in all extremities. No tremor noted. Fluent speech CV:RRR Resp:CTA Abd: Soft, non distended. No pain to palpation. Positive bowel sounds Extremities: No swelling, erythema, or pain to palpation. DS: Data Data Completed and Pending Labs on day of discharge: Labs from last 24 hours 12/01/23 12/01/23 08:27 08:23 ESR 15 Total Creatine Kinase 94 C-Reactive Protein < 0.5 Vitamin B12 817.0 Folate 8.2 TSH (Reflex) 0.784 Discharge Plan Discharge Attending physician on discharge: Doug Conde Consulting providers: Dot Vasquez Discharging Clinician: Cha Guzman Patient Disposition: Home, Self-Care Activity: as tolerated Diet: regular Discharge Instructions: -Follow up with neurology Dr. Maciel. Call and make an appointment -follow up with your primary care provider about your weight loss -Worrisome signs and symptoms to come back to the ER for: chest pain, shortness of breath, fevers 100.4 or greater, progressive significant weakness or any other worrisome symptom. Stand Alone Forms: General Discharge Information Follow-up/Referrals: Nando Maciel MD [Physician] - Discharge Medications: Continued dextroamphetamine-amphetamine 10 mg tablet 10 mg PO BID bupropion HCl 150 mg tablet extended release 24 hr 150 mg PO QAM Date of admission: 11/29/23 15:46 Primary
[2023-12-01 14:31] VITALS: BP 112/70; PULSE 80; RESP 18; TEMP 36.9; O2SAT 100
== END 2023-12-01 15:10 | disposition home or self-care (01) ==
LOC: ANHED 13:08 → ANH3MEDSUR 17:05 → ANH3MED 22:52
PROVIDERS: Admitting Provider Internal Medicine; Emergency Provider Preventive Medicine Aerospace Medicine; Referring Provider Emergency Medicine; Visit Provider Physician Assistant
DX: R20.0 Anesthesia of skin (principal); R20.2 Paresthesia of skin; R63.4 Abnormal weight loss; H54.61 Unqualified visual loss, right eye, normal vision left eye; H93.19 Tinnitus, unspecified ear; M25.541 Pain in joints of right hand; M25.542 Pain in joints of left hand; Z68.21 Body mass index [BMI] 21.0-21.9, adult; F41.1 Generalized anxiety disorder; F17.290 Nicotine dependence, other tobacco product, uncomplicated; F12.90 Cannabis use, unspecified, uncomplicated
CPT/HCPCS: 36415; 70450; 70553; 71046; 72125; 72156; 72157; 72158; 80048; 80053; 81025; 82550; 82607; 82746; 84443; 85025; 85652; 86140; 96374; 96375; 96376; 99285; A9270; A9577; G0378; G0379; J1170; J1885; J2060

== ENCOUNTER 2024-03-29 21:28 | Emergency (ER) | payer OTHER, SELFPAY ==
--- NOTE | ~2024-03-29 | XR_ITS ---
XR chest 1V portable DATE: 03/29/2024 21:54 INDICATION: Chest pain TECHNIQUE: Portable AP chest on 03/29/2024 at 2148 hours COMPARISON: 11/29/2023 PA and lateral chest FINDINGS: Normal heart size. No hilar or mediastinal enlargement. No pulmonary infiltrate or consolid ation, pleural effusion or pulmonary vascular congestion or pneumothorax. Included skeletal structures are unremarkable other than levoscoliosis of the thoracolumbar spine whi ch may be at least partly positional. IMPRESSION: No active cardiopulmonary disease Reviewed, dictated and finalized at location A.
--- NOTE | 2024-03-29 21:29 | ECG_ITS ---
Test Date: 2024-03-29 21:42:47 Measurements Intervals [place] Rate: 110 P: 60 AR: 162 QRS: 23 QRSD: 122 T: 30 QT: 353 QTc: 478 Interpretive Statements SINUS TACHYCARDIA RIGHT BUNDLE BRANCH BLOCK BASELINE ARTIFACT- I, II, AVR ABNORMAL ECG No previous ECG available for comparison Electronically Signed On 03-30-2024 06:26:57 CDT by Ishan Gomes D.O.
[2024-03-29 21:34] VITALS: BP 152/95; PULSE 112; PULSE 116; RESP 16; RESP 17; TEMP 36.4; O2SAT 100
[2024-03-29 21:46] VITALS: BP 133/89; PULSE 114; PULSE 116; RESP 18; O2SAT 100
--- NOTE | 2024-03-29 21:48 | ED.CHESTPAIN ---
HPI - Chest Pain General Chief Complaint: Chest Pain Stated Complaint: chest pain Time Seen by Provider: 03/29/24 21:33 Source: patient Mode of arrival: ambulatory Limitations: no limitations History of Present Illness HPI narrative: patient is a 28-year-old female who presents the ED with report of chest pain. Patient reports the pain began earlier this afternoon and has persisted throughout the day. States she has had recurrent episodes of feeling as though there is an explosion in her heart which sends a tingling sensation throughout her whole body. Denies radiation of the pain. She does feel short of breath with the pain. She has not tried anything for the pain. Denies history of similar pain. Denies recent cough or cold symptoms, pain or swelling in lower extremities. Related Data Home Medications Medication Instructions Recorded Confirmed bupropion HCl 150 mg 24 hr tablet, 150 mg PO QAM 11/29/23 11/29/23 extended release dextroamphetamine-amphetamine 10 10 mg PO BID 11/29/23 11/29/23 mg tablet Allergies Allergy/AdvReac Type Severity Reaction Status Date / Time No Known Allergies Allergy Verified 11/29/23 13:06 Review of Systems Review of Systems: All systems reviewed & are unremarkable except as noted in HPI. All systems reviewed & are unremarkable except as noted in HPI and below PMFSH Past Medical History Medical History Fibromyalgia Surgical History Surgical History No significant past surgical history Social History Social History Smoking status: Current every day smoker Tobacco type: e-cigarettes/vaping Additional smoking assessment comments: MAINLY DURING NAPTIME, NOT VERY OFTEN Alcohol intake: never Substance use: current Substance use type: marijuana Other substance usage details: SMOKE Last use: 11/29/2023 Do You Feel Safe in your Home?: Yes Lack of Transportation: No Lack of Food: Never True Current Housing: I Have Housing Concerned About Future Housing: No Difficulty Paying Gas/Electric Bills: No Difficulty Paying for Meds: No Currently Unemployed: No Education: Trade/Vocational Certificate Difficulty w/ Childcare or Family Care: No Spiritual care concerns: No Exam Narrative: GENERAL: Anxious appearing, well-nourished, non-toxic, in no acute distress. HEAD: Normocephalic, atraumatic. RESPIRATORY: Airway patent, respirations nonlabored. Clear to auscultation bilaterally, no rales, rhonchi, wheezing. CARDIOVASCULAR: Tachycardic with regular rhythm without murmurs, rubs, or gallops. MUSCULOSKELETAL: Moves all extremities. No gross deformities. No lower extremity edema. No chest wall tenderness to palpation. SKIN: Warm, dry, normal color. NEURO: A&O X3. Speech clear. Cranial nerves II-XII grossly intact. Steady gait. No ataxic movements. PSYCHIATRIC: Anxious. Normal interaction. Course Vital Signs Vital signs: Vital Signs Temperature 97.6 F 03/29/24 21:34 Pulse Rate 116 H 03/29/24 21:34 Respiratory Rate 16 03/29/24 21:34 Blood Pressure 152/95 H 03/29/24 21:34 Pulse Oximetry 100 03/29/24 21:34 Oxygen Delivery Room Air 03/29/24 21:34 Temperature 97.6 F 03/29/24 21:34 Pulse Rate 100 03/29/24 23:21 Respiratory Rate 16 03/29/24 23:21 Blood Pressure 126/64 03/29/24 23:21 Pulse Oximetry 98 03/29/24 23:21 Oxygen Delivery Room Air 03/29/24 21:46 MDM - Chest Pain MDM Narrative Medical decision making narrative: patient presented to ED with chest pain, whole body tingling, shortness of breath. Patient is tachycardic upon arrival, though she does appear anxious. Otherwise vital signs are stable. In no acute distress. EKG is without concerning ischemic changes. Baseline troponin is undetectabl
[2024-03-29] MEDS: ACETAMINOPHEN 500 MG TABLET 1000 MG PO (21:56)
[2024-03-29 21:59] LABS: Basophils Absolute Auto 0.1 K/mm3 (0.0-0.1); Basophils Percent Auto 0.5 % (0.2-1.2); Eosinophils Absolute Auto 0.7 K/mm3 (0-0.3); Eosinophils Percent Auto 6.2 % (0-4.4); Hematocrit 34.9 % (37.0-47.0); Hemoglobin 11.5 g/dL (12.0-15.0); Immature Granulocyte Absolute 0.06 K/mm3 (0.00-0.031); Immature Granulocyte Percent A 0.5 % (0-0.5); Lymphocytes Absolute Auto 1.83 K/mm3 (0.9-3.2); Lymphocytes Percent Auto 15.5 % (18.3-44.2); Mean Corpuscular Volume 91.1 fl (80-100); Mean Platelet Volume 8.5 fl (7.4-10.4); Monocytes Absolute Auto 0.7 K/mm3 (0.1-0.6); Monocytes Percent Auto 5.9 % (2.6-8.5); Neutrophils Absolute Auto 8.4 K/mm3 (1.3-6.7); Neutrophils Percent Auto 71.4 % (45.5-73.1); Platelet Count Result 440 k/mm3 (150-375); Red Blood Count 3.83 M/mm3 (4.2-5.4); Red Cell Distribution Width 12.5 % (11.5-14.5); White Blood Count 11.8 K/mm3 (4.5-10.0)
[2024-03-29 22:01] VITALS: BP 129/80; PULSE 111; RESP 14; O2SAT 100
[2024-03-29 22:10] LABS: INR 1.1
[2024-03-29 22:11] LABS: Alanine Aminotransferase 20 U/L (6-35); Albumin Level 4.1 g/dL (3.5-5.1); Alkaline Phosphatase 56 U/L (38-126); Anion Gap 10 mmol/L (4-12); Aspartate Amino Transferase 28 U/L (14-36); Bilirubin,Total 0.2 mg/dL (0.2-1.3); Blood Urea Nitrogen 18 mg/dL (7-17); Calcium 8.6 mg/dL (8.4-10.2); Carbon Dioxide 25 mmol/L (22-30); Chloride 100 mmol/L (98-107); Estimated CRCL calculation 75 ml/min; Estimated Glomerular Filt Rate > 60; Glucose 96 mg/dL (65-110); Lipase 102 U/L (23-300); Partial Thromboplastin Time 27.3 Seconds (22.3-36.8); Potassium 3.6 mmol/L (3.4-5.0); Sodium 135 mmol/L (137-145)
[2024-03-29 22:14] LABS: D Dimer < 0.27 ug/mL (<0.48)
[2024-03-29 22:23] LABS: Troponin I < 0.012 ng/mL (0.000-0.034)
[2024-03-29 23:21] VITALS: BP 126/64; PULSE 100; RESP 16; O2SAT 98
--- NOTE | 2024-03-29 23:34 | PC.NURSE ---
Assumed care of pt after receiving report from NUBIA Duffy @ 1988
[2024-03-30 01:31] VITALS: BP 117/76; PULSE 100; RESP 12; O2SAT 100
[2024-03-30 01:35] LABS: Troponin I < 0.012 ng/mL (0.000-0.034)
== END 2024-03-30 02:00 | disposition home or self-care (01) ==
PROVIDERS: Emergency Medicine; Emergency Provider Physician Assistant
DX: R07.89 Other chest pain (principal); R00.0 Tachycardia, unspecified; F17.290 Nicotine dependence, other tobacco product, uncomplicated; M79.7 Fibromyalgia
CPT/HCPCS: 36415; 71045; 80053; 83690; 84484; 85025; 85380; 85610; 85730; 93005; 99284; A9270

== ENCOUNTER 2024-09-16 17:37 | Emergency (ER) | payer OTHER, SELFPAY ==
--- NOTE | ~2024-09-16 | XR_ITS ---
EXAMINATION: XR chest 2V Exam Date/Time: 09/16/2024 17:57 DATA DESIGNER HISTORY: chest pain Comparison: 03/29/2024. RESULT: Lines, tubes, and devices: None. Lungs and pleura: Clear. Cardiomediastinal silhouette: Stable. Other: No acute osseous or upper abdominal finding. IMPRESSION: No acute cardiopulmonary process. Reviewed, dictated and finalized at location K. DESIGNER
[2024-09-16 17:41] VITALS: BP 114/73; PULSE 77; RESP 18; TEMP 36.5; O2SAT 100
--- NOTE | 2024-09-16 17:49 | ED.CHESTPAIN ---
HPI - Chest Pain General Chief Complaint: Chest Pain Stated Complaint: chest pain, shortness of breath Time Seen by Provider: 09/16/24 17:49 Focused HPI: This is a 28 year old female that presents to the ER for chest pain. Ongoing intermittently since yesterday. Reports associated shortness of breath, palpitations. GENERAL: Well-appearing, well-nourished, and in no acute distress. HEAD: Normocephalic, atraumatic. CHEST: Clear to auscultation. ?No respiratory distress. HEART: Regular rate and rhythm.? NEURO: ?Alert and oriented x3. Patient screened in triage and initial orders placed.? ?Additional care and disposition to be based upon?diagnostic testing and treatment. Related Data Home Medications ?Medication ?Instructions ?Recorded ?Confirmed ?Last Taken ?Type bupropion HCl 150 mg 24 hr tablet, 150 mg PO QAM 11/29/23 11/29/23 1 Day Ago History extended release ~11/28/23 dextroamphetamine-amphetamine 10 10 mg PO BID 11/29/23 11/29/23 1 Day Ago History mg tablet ~11/28/23 Allergies Allergy/AdvReac Type Severity Reaction Status Date / Time No Known Allergies Allergy Verified 11/29/23 13:06 PMFSH Past Medical History Medical History Fibromyalgia Surgical History Surgical History No significant past surgical history Social History Social History Smoking status: Current every day smoker Tobacco type: e-cigarettes/vaping Additional smoking assessment comments: MAINLY DURING NAPTIME, NOT VERY OFTEN Alcohol intake: never Substance use: current Substance use type: marijuana Other substance usage details: SMOKE Last use: 11/29/2023 Do You Feel Safe in your Home?: Yes Lack of Transportation: No Lack of Food: Never True Current Housing: I Have Housing Concerned About Future Housing: No Difficulty Paying Gas/Electric Bills: No Difficulty Paying for Meds: No Currently Unemployed: No Education: Trade/Vocational Certificate Difficulty w/ Childcare or Family Care: No Spiritual care concerns: No Course Vital Signs Vital signs: Vital Signs Temperature 97.7 F 09/16/24 17:41 Pulse Rate 77 09/16/24 17:41 Respiratory Rate 18 09/16/24 17:41 Blood Pressure 114/73 09/16/24 17:41 Pulse Oximetry 100 09/16/24 17:41 Oxygen Delivery Room Air 09/16/24 17:41 Temperature 97.7 F 09/16/24 17:41 Pulse Rate 77 09/16/24 17:41 Respiratory Rate 18 09/16/24 17:41 Blood Pressure 114/73 09/16/24 17:41 Pulse Oximetry 100 09/16/24 17:41 Oxygen Delivery Room Air 09/16/24 17:41 MDM - Chest Pain MDM Narrative Medical decision making narrative: Patient left after medical screening exam and initial workup and before any further evaluation or management Lab Data 09/16/24 17:51 09/16/24 17:51 Labs: Lab Results 09/16/24 Range/Units 17:51 WBC 6.5 (4.5-10.0) K/mm3 RBC 4.43 (4.2-5.4) M/mm3 Hgb 13.1 (12.0-15.0) g/dL Hct 39.6 (37.0-47.0) % MCV 89.4 (80-100) fl MCH 29.6 (26-34) pg MCHC 33.1 (32-36) g/dl RDW 12.8 (11.5-14.5) % Plt Count 431 H (150-375) k/mm3 MPV 9.3 (7.4-10.4) fl Immature Gran % (Auto) 0.2 (0-0.5) % Neut % (Auto) 57.5 (45.5-73.1) % Lymph % (Auto) 32.3 (18.3-44.2) % [place] % (Auto) 7.7 (2.6-8.5) % Eos % (Auto) 1.7 (0-4.4) % Baso % (Auto) 0.6 (0.2-1.2) % Lymph # (Auto) 2.09 (0.9-3.2) K/mm3 [place] # (Auto) 0.5 (0.1-0.6) K/mm3 Eos # (Auto) 0.1 (0-0.3) K/mm3 Baso # (Auto) 0.0 (0.0-0.1) K/mm3 Abs Immat Gran (auto) 0.01 (0.00-0.031) K/mm3 Absolute Neuts (auto) 3.7 (1.3-6.7) K/mm3 Absolute Nucleated RBC 0.000 (0.0-0.012) K/mm3 Nucleated RBC % 0.0 (0.0-0.2) % PT 13.3 (11.1-14.7) Seconds INR 1.0 APTT 32.9 (22.3-36.8) Seconds Sodium 138 (137-145) mmol/L Potassium 3.3 L (3.4-5.0) mmol/L Chloride 102 (98-107) mmol/L Carbon Dioxide 26 (22-30) mmol/L Anion Gap 10 (4-12) mmol/L BUN 9 D (7-17) mg/dL Creatinine 0.66 L (0.7-1.0) mg/dL Estim Creat Clear Calc 90 ml/min Estimated GFR > 60 (59 - ) Glucose 90 (65-110) mg/dL Calcium 9.4 (8.4-10.2) mg/dL Total Bilirubin 0.4 (0.2-1.3) mg/dL AST 27 (14-36) U/L ALT 26 (6-35) U/L Alkaline Phosphatase 50 (38-126) U/L Troponin I < 0.012 (0.000-0.034) ng/mL Total Protein 8.0 (6.3-8.2) g/dL Albumin 4.6 (3.5-5.1) g/dL Lipase 68 (23-300) U/L Imaging Data Radiologist's impression: ITS Impressions Chest X-Ray 09/16/24 18:32 IMPRESSION: No acute cardiopulmonary process. Discharge Plan Discharge Clinical Impression: Chest pain Qualifiers: Chest pain type: unspecified Qualified Code(s): R07.9 - Chest pain, unspecified Patient Disposition: Elopement After Seen by Prov Condition: Stable Patient Language: Togolese Prescriptions: No Action dextroamphetamine-amphetamine 10 mg tablet 10 mg PO BID bupropion HCl 150 mg tablet extended release 24 hr 150 mg PO QAM Follow-up/Referrals: PHYSICIAN,[employer] ENGINE[employer]RAFT[employer]ERSON [Primary Care Provider] -
[2024-09-16 18:02] LABS: Basophils Percent Auto 0.6 % (0.2-1.2); Eosinophils Absolute Auto 0.1 K/mm3 (0-0.3); Eosinophils Percent Auto 1.7 % (0-4.4); Hematocrit 39.6 % (37.0-47.0); Hemoglobin 13.1 g/dL (12.0-15.0); Immature Granulocyte Absolute 0.01 K/mm3 (0.00-0.031); Immature Granulocyte Percent A 0.2 % (0-0.5); Lymphocytes Absolute Auto 2.09 K/mm3 (0.9-3.2); Lymphocytes Percent Auto 32.3 % (18.3-44.2); Mean Corpuscular HGB Conc 33.1 g/dl (32-36); Mean Corpuscular Hemoglobin 29.6 pg (26-34); Mean Corpuscular Volume 89.4 fl (80-100); Mean Platelet Volume 9.3 fl (7.4-10.4); Monocytes Absolute Auto 0.5 K/mm3 (0.1-0.6); Monocytes Percent Auto 7.7 % (2.6-8.5); Neutrophils Absolute Auto 3.7 K/mm3 (1.3-6.7); Neutrophils Percent Auto 57.5 % (45.5-73.1); Platelet Count Result 431 k/mm3 (150-375); Red Blood Count 4.43 M/mm3 (4.2-5.4); Red Cell Distribution Width 12.8 % (11.5-14.5); White Blood Count 6.5 K/mm3 (4.5-10.0)
[2024-09-16 18:14] LABS: Alanine Aminotransferase 26 U/L (6-35); Albumin Level 4.6 g/dL (3.5-5.1); Alkaline Phosphatase 50 U/L (38-126); Anion Gap 10 mmol/L (4-12); Aspartate Amino Transferase 27 U/L (14-36); Bilirubin,Total 0.4 mg/dL (0.2-1.3); Blood Urea Nitrogen 9 mg/dL (7-17); Calcium 9.4 mg/dL (8.4-10.2); Carbon Dioxide 26 mmol/L (22-30); Chloride 102 mmol/L (98-107); Estimated CRCL calculation 90 ml/min; Estimated Glomerular Filt Rate > 60; Glucose 90 mg/dL (65-110); Lipase 68 U/L (23-300); Potassium 3.3 mmol/L (3.4-5.0); Sodium 138 mmol/L (137-145)
[2024-09-16 18:24] LABS: Troponin I < 0.012 ng/mL (0.000-0.034)
[2024-09-16 18:27] LABS: Prothrombin Time 13.3 Seconds (11.1-14.7)
[2024-09-16 18:28] LABS: Partial Thromboplastin Time 32.9 Seconds (22.3-36.8)
--- OUTSIDE RECORDS SUMMARY | 2024-09-16 18:43 | XMS_ITS | Clinical Summary ---
Author Organization [facility] Building Address [address] [place] [id number] Care Team Providers Care Frame Wirer Name Role Phone Petra Fabian MD Unavailable [phone] Yimi Wasserman NP Primary Care Provider [phone] Allergies Active Allergy Reactions Criticality Noted Date Comments Coconut Oil Anaphylaxis High 02/14/2017 Nickel Rash Medium 05/05/2014 Medications dextroamphetamine -amphetamine (AdderalL) 10 mg tabletIndications :Attention-Defici t Hyperactivity Disorder Take 1 tablet (10 mg total) by mouth 2 (two) times a day 60 tablet 3 Active buPROPion XL (WELLBUTRIN XL) 150 mg 24 hr tablet Take 1 tablet (150 mg total) by mouth every morning Please schedule a follow up apt. 90 tablet 4 Active naproxen sodium 220 mg capsule Take 220 mg by mouth 4 Active acetaminophen (TYLENOL) 325 mg tablet Take 2 tablets (650 mg total) by mouth 1 Active SUMAtriptan (IMITREX) 50 mg tabletIndications :Migraine Take 1 tablet (50 mg total) by mouth once as needed for migraine May repeat after 2 hours. 27 tablet 4 4 06/30/20 25 Active ciprofloxacin-dex AMETHasone (CIPRODEX) otic suspensionIndicat ions:Acute otitis externa of left ear, unspecified type,Psoriasis Administer 4 drops into the right ear 2 (two) times a day 7.5 mL Active hydrocortisone 2.5 % creamIndications: Psoriasis Apply topically 2 (two) times a day 30 g 4 Active aspirin 81 mg chewable tabletIndications :prevention of thrombosis Take 1 tablet (81 mg total) by mouth daily Active metoprolol XL (TOPROL-XL) 50 mg extended release tabletIndications :Intractable chronic migraine with aura with status migrainosus,Tachy cardia Take 1 tablet (50 mg total) by mouth daily 30 tablet 11 4 07/03/20 25 Active metoprolol tartrate (LOPRESSOR) 25 mg immediate release tablet Take 0.5 tablets (12.5 mg total) by mouth 2 (two) times a day as needed (palpitations. ) 6 tablet 5 Active Active Problems Problem Noted Date Diagnosed Date Tachycardia 07/02/2024 Assessment & Plan (07/03/2024 10:15 AM RIBBON BLOCKMAKER): New Chronic condition. Reviewed holter monitor report and echo. Start Toprol 50mg every 24 hours. Consider instrument and electrical technician referral. Thrombocytopenia 07/02/2024 Assessment & Plan (07/02/2024 4:52 PM RIBBON BLOCKMAKER): Improving. Ordered and reviewed CBC- platelets are coming down. Continue aspirin 81mg daily. Acute otitis externa of left ear 07/02/2024 Assessment & Plan (07/02/2024 4:53 PM RIBBON BLOCKMAKER): New. Start Ciprodex otic. Use ear drops as directed Do not get ear wet for a week, use cotton ball or earplug in ear when showering/bathing No swimming for a week Tylenol/ibuprofen as needed May use a warm compress against ear for pain relief In the future, use over the counter swimmers ear drops after swimming and/or showers/baths Psoriasis 07/02/2024 Assessment & Plan (07/03/2024 10:16 AM RIBBON BLOCKMAKER): Chronic and stable. Start Hydrocortisone cream as needed topically on inflamed areas. Cardiac arrhythmia 03/31/2024 Assessment & Plan (03/31/2024 11:50 AM CDT): New. Heart rate anywhere from 57 to 101 when laying down. Ordered EKG- abnormal result (incomplete RBBB). Ordered holter monitor and Echo. Abnormal loss of weight 03/31/2024 Assessment & Plan (03/31/2024 12:00 PM CDT): Chronic. Has lost 150 pounds over last 2 years. Has not done anything new with exercise or diet in that time. Had third baby almost 2 years ago. Hx of pituitary adenoma. Discussed increasing protein in diet. Ordered repeat brain MRI. Intermittent palpitations 03/31/2024 Assessment & Plan (03/31/2024 11:57 AM CDT): New. Heart rate anywhere from 57 to 101 when laying down. Ordered EKG- abnormal result (incomplete RBBB). Ordered holter monitor and Echo. Ordered labs. Illicit drug use 03/16/2024 Sprain of anterior talofibular ligament of right ankle 03/06/2024 Borderline personality disorder (CMS/HCC) 2023 Contusion of left hip 03/06/2024 Difficulty in walking, not elsewhere classified 03/06/2024 Lumbar strain, initial encounter 09/12/2023 Chronic pain of multiple joints 07/05/2023 Assessment & Plan (03/31/2024 11:50 AM CDT): Chronic. Ordered labs. Dry eye syndrome of both lacrimal glands 022 Assessment & Plan (07/02/2022 3:14 PM RIBBON BLOCKMAKER): Recommended ATs PRN both eyes (OU) due to reduced TBUT Intractable chronic migraine with aura with status migrainosus 06/04/2022 Overview (07/24/2022): Reports migraines occurring 1-2 times per month pre reg, now 3-4 times per week. Frontal pain a/w photophobia, blurry vsion. Duration of the headaches is 1-2 days. No medication helps. The characteristics are variable, described as sharp, dull, pulsatile in quality, and 4-8/10 in severity. - 06/05: ACUNA improved today, continue below regimen -06/11: Seen in [facility] for ACUNA, resolved with sumatriptan -07/24/22: no headache currently, has had them more frequently over past 1-2 weeks CURRENT REG: mag ox, riboflavin, reglan, benadryl Plan [] monitor sx qV [] BP monitoring as above [] reviewed preE precautions, headache precautions Assessment & Plan (07/03/2024 10:15 AM RIBBON BLOCKMAKER): Uncontrolled. Start toprol XL 50mg daily for migraine prevention. Start sumatriptan as needed for migraine . 60mg Ketorolac IM given today. Reviewed MRI brain. Referral already ordered for neurology. discussed proper use of a triptan-taking within 30min of onset of headache, may repeat in 2 hours if headache not improved, not to exceed 2 in 24 hours; may use zofran as needed for nausea. Discussed avoiding all caffeine: no soda, tea, coffee, chocolate; no wine; no sharp cheeses; no processed meats like hot dogs or bologna; no MSG as found in Buzz Referrals food; no more than 1/2 banana a day; no artificial sweeteners; fresh bread (less than 24 hours old) Avoid using tylenol, ibuprofen or aleve more than twice a week or else you can cause medication overuse/rebound headaches. You may be causing the headaches with the medications you are taking to get rid of them. Increase water intake as dehydration is a big cause of headaches. Assessment & Plan (06/04/2022 10:03 AM RIBBON BLOCKMAKER): History of chronic migraine that has been increase in frequency and severity over the past 2 months. Headache hygiene discussed and recommend follow-up with obgyn for monitoring of signs of pre-eclampsia. Blurry vision, bilateral 06/04/2022 Assessment & Plan (03/31/2024 11:49 AM CDT): Recurring/worsening. Repeat brain MRI. Assessment & Plan (07/02/2022 3:16 PM RIBBON BLOCKMAKER): No evidence of ONH changes, no edema or pallor. Full EOMS right eye (OD) and left eye (OS). Good BCVA with pinhole. Stable OCT ONH on OCT. The Monk visual field (HVF) shows scattered defects nasal, but unreliable. Importantly, no visual field (VF) defect consistent with pituitary adenoma. Educated patient the vision can fluctuate when , and will schedule refraction in coming months after . Also discussed mild reduced tear break-up time (TBUT) and recommended artificial tears. RTC 2 mo for refraction or sooner prn Assessment & Plan (06/04/2022 10:02 AM RIBBON BLOCKMAKER): Subjective blurry vision for the past 2-8 months, that worsen with migraine headache. Exam today without ocular explanation of blurry vision. Recommend trial of artificial tears to optimize ocular surface. RTC in 4 weeks for repeat vision check. Maternal obesity, antepartum 05/23/2022 Overview (07/31/2022): Pre preg BMI 30 Plan [x] Early GTT [x] Specialized anatomy ultrasound [x] Serial growth ultrasounds q4 weeks starting at 24 weeks: AGA on 06/25,1/3 Back pain affecting in second trimeste r 03/27/2022 Overview (03/27/2022): Patient reports increased severity and frequency of neck, back and hip pain. Reports no relief with APAP and behavioral modifications (yoga, stretching). On physical exam, paraspinous muscles are soft, minimal SI joint tenderness. Patient amenable to trying conservative measures. 03/27: Placed referral to pelvic PT. Not immune to rubella 12/20/2021 Overview (07/03/2022): For MMR PP Supervision of high-risk , third trimes ter 12/14/2021 Overview (07/31/2022): First Trimester: [x] Dating Criteria: L=1 [x] Labs: Rh+/Ab-/HIV-/RPR NR/HepB-/HCV-/Rubella equivocal/Varicella NI [x] Genetic Screening: low risk [x] Carrier screen, Fragile X carrier [x] Hgb electrophoresis (if indicated) [x] GC/CT, UCx: Neg/neg, UCx CIG [x] Pap: reports wnl within last yr [x] PNBHS referral (if indicated) [x] ASA at 12 weeks (if indicated) 2nd Trimester: [x] Anatomy ultrasound - EFW 361 (43%), post plac, no previa, normal anatomy, CL 4.4cm [x] CBC - Hgb 12.5, RPR NR [x] 1hr gtt at 24-28wks: 129 [x] Flu Shot (Mar-Jun): received 04/21 [x] Tdap (27-36wks): received 05/22 [x] Rhogam (if Rh neg): 3rd Trimester: [x] CBC/HIV/RPR/T&S: hgb 12.5/NR/NR [x] GBS, negative [x] GC/CT/trich (if indicated) - neg Counseling [x] Method of delivery: [facility] - 08/06/22 [x] Method of contraception: Desires BTL at time of [facility] - [place] Medicaid consents signed 06/19, partner no longer getting vasectomy [x] Method of feeding: breast, already has breast pump delivered [] Rubber Process Hand: [] Car seat Discussed [] PP Depression Counseling Attention deficit disorder 11/21/2021 Overview (07/03/2022): Previously diagnosed with bipolar disorder, anxiety, and depression. Smithers use over 1 yr ago. Follows with [facility], online psychiatry platform and dx with ADHD and taking adderall 5mg daily vs BID (prescribed BID). - seen by Psych 05/30 and stopped Adderall Assessment & Plan (03/31/2024 11:55 AM CDT): Manged by [facility] psych with Adderall and wellbutrin. Assessment & Plan (12/10/2022 11:46 AM CDT): Following with psychaitry Continue aderral 10 mg bid, wellbutrin 150 mg every day as per psychaitry Assessment & Plan (11/15/2022 2:51 PM CDT): Following with psychaitry Continue aderral 10 mg bid, wellbutrin 150 mg every day as per psychaitry Assessment & Plan (11/21/2021 1:04 PM CDT): States that she was following with psychaitry through [facility], states that her psychiatrist is on sabbatical and no one in the office knows her as a patient and refuses to reifll medication. [facility] states that she [facility] it there before - will get records from [facility] prior to any refils, new psych referral placed Closed fracture of proximal phalanx of lesser toe of right foot 10/06/2021 Degeneration of lumbar intervertebral disc 06/22 Overview (03/06/2024): 06/22/2021 - CHRISTINE GUAN C
per MRI lumbar/thoracic spine 06/16/21 Arthralgia of left ankle 06/09/2021 Back pain 06/09/2021 Overview (03/06/2024): 06/09/2021 - RAJIV DINH R
Left upper back Borderline personality disorder (CMS/HCC) 2020 Cannabis dependence 04/12/2021 Adjustment disorder with mixed anxiety and depre ssed mood 08/29/2017 Carrier of fragile X chromosome Overview (07/24/2022): - s/p HROB counseling - pt reports diagnosed as fragile X carrier after first delivery when son had FTT - has not undergone any genetic testing - second son with developmental delay currently going to therapy and undergoing genetic work-up - S/p Genetic Counseling - Per GC: Results c/w intermediate of 47. Only 16% of intermediates expand, so she would be at risk to have a child with an intermediate or potentially a premutation. I would not necessarily recommend amnio at this point. The testing would detect a premutation though, it would give the repeat number for the fetus. Plan: - NIPT: 01/30, low risk male. Declines amnio - Carrier screenin/12, intermediate allele for Fragile X Pituitary tumor Overview (08/21/2022): - Pt reports incidentally found on MRI (late 2020) at [facility] while patient was undergoing work-up for multiple sclerosis - Pt reports 1 yr hx of visual changes, lower extremity neuropathy, weakness, and loss of sensation, multiple falls - Follows with neurology and endocrinology at [facility] - MRI 06/22/2021 with 3mm nonenhancing lesion in the pituitary on the right c/w microadenoma (page 11 in media tab), page 65 (endo/neuro recs: pituitary MRI/prolactin). - Brain MRI on 05/21 that did not even demonstrate the known pituitary adenoma 2/2 lack of contrast. - Seen by Dr. Jaramillo (neuro-ophtho) on 06/04 - Monk visual field testing grossly normal, no findings on eye exam to explain c/o blurry vision or reduced visual haley. Recommended artifical tears and repeat Monk's visual field testing w/ nondestructive tester in 4 weeks and for repeat brain MRI pituitary w/wo contrast when able -Seen by nondestructive tester 07/02, normal exam and visual field testing Plan: [] Repeat brain MRI pituitary w/wo contrast - ordered today, given scheduling info [] Wheel Setter return visit in 2mo for refraction - patient will schedule Assessment & Plan (03/31/2024 11:49 AM CDT): Hx of pituitary microademona. Last MRI done 12/11/2022 with no significant changes from the previous one in 05/18/2022. Repeat MRI. Will check prolactin levels, LH, and cortisol. Assessment & Plan (07/02/2022 3:14 PM RIBBON BLOCKMAKER): Stable eye exam, there are scattered nasal Monk visual field (HVF) defects, but unreliable and not concerning as pituitary adenoma would cause bitemporal defects. The vision is good with pinhole, and patient would benefit from updated Rx after . There are no abnormalities or changes noted with either ONH, confirmed with OCT. Educated on all exam findings and will monitor Assessment & Plan (06/04/2022 10:02 AM RIBBON BLOCKMAKER): Brain MRI wo contrast on 05/21 showed left deviation of pituitary stalk but no pituitary adenoma Subjective peripheral vision changes without clear visual defect on HVF but somewhat limited by high false negative. OCT with mild thinning of GCC OU but full RNFL. Will attempt to obtain MRI images for review. Recommend repeat testing in 4 weeks. 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 - Continue therapy - 06/19: Mood stable, EPDS 14 (improved from 16 at last visit), answered no to last question. Thinks wellbutrin is helping. - 07/03: Mood stable, EPDS 12, no for last question. Continuing to take Wellbutrin. Looking forward to restarting ADHD medication after . - 07/24/22 EPDS 16, continues with outside provider, [facility] to contact again -07/31/22: EPDS not performed, seeing psychiatry today CURRENT REG: wellbutrin 150 mg daily [] Assess mood, EPDS qV [] Sees outside psych provider monthly Hx of preeclampsia Overview (07/24/2022): - Reports hx of borderline preeclampsia in G2, reports delivered after 39 wks - Baseline labs wnl, UPC 0.07 - Pt reports good compliance with daily ASA on 04/24 - 05/17 WA: one MR BP, CBC/CMP wnl, UPC 0.1 - 05/22: reports worsening BLE edema, BUE edema, fascial swelling, ACUNA. Weight stable from last month. CBC/CMP wnl, UPC 0.07 06/05: normotensive 06/11: Seen in [facility] 06/11 for ACUNA; BP normotensive 06/19: Normotensive, BPs at home also normotensive. No current ACUNA, RUQ pain, vision changes. 07/24/22: Normotensive, asx Plan: - BP check at visits History of section Overview (08/06/2022): - History of two prior sections - G1: failed induction, dilated to 1cm and delivered via CS for NRFS and maternal tachycardia - G2: scheduled repeat CS Plan: - Counseled on TOLAC on 04/24, desires repeat CS - rCS scheduled at 39w3d (08/06/22 at 0930) - Anesthesia consult placed 06/19 for discussion of anesthesia options in setting of hx of trauma associated with first and sensory issues given pt's questions today Resolved Problems Problem Noted Date Diagnosed Date Resolved Date delivery delivered 08/06/2022 08/21/2022 Overview (08/08/2022): # ID: Afebrile. No signs/symptoms of infection. #COVID-19: Test not indicated #RubNI: MMR ordered # Heme: EBL 500 mL. No symptoms acute blood loss anemia. # CV/Pulm: Chronic hypertension - Blood pressures well controlled on no meds (documented as labetalol previously, no active meds on chart review). Asymptomatic, denies ACUNA/RUQ pain/vision changes. CBC/CMP WNL, UPC 0.16. Enrolled in home BP monitoring. # GI/: Tolerating PO. Voiding spontaneously. # ADHD/BPD/MDD: Continue home wellbutrin 150mg/daily. Interested in meeting with [facility], will place referral today. # H/o benign pituitary tumor: Asymptomatic # Pain: Controlled with above regimen. Will add lidoderm patches and abdominal binder. Pain well controlled on POD2. # Post DVT prophylaxis: The patient has the following MAJOR risk factors none and the following MINOR risk factors BMI 30-39 and delivery. enoxaparin 40 mg daily ordered for VTE prophylaxis. # MOC: s/p BTL # MOF: . Urine drug screen not indicated. Patient informed of results: N/A. # COVID Vaccination Status: Not previously received: I decline to share my reason for not getting the vaccine # Disposition: Follow up task sent to [facility] scheduling pool. Desires discharge home today. Fibromyalgia 06/04/2022 06/04/2022 Anxiety 06/04/2022 06/04/2022 Elevated blood pressure affe cting , antepartum 05/22/2022 08/21/2022 Overview (07/31/2022): S/p counseling, working diagnosis: cHTN Reports hx of borderline preeclampsia in G2, reports delivered after 39 wks Pt reports good compliance with daily ASA on 04/2409/28/20 ED - 141/84 09/21/21 ED - 140/86 12/11/21 5w3d [facility]- 143/79 05/17/22 27w6d [facility] - 143/61, CBC, CMP wnl, UPC 0.1, uric acid wnl 05/22: reports worsening BLE edema, BUE edema, fascial swelling, ACUNA. Weight stable from last month. CBC/CMP wnl, UPC 0.07 06/29: normal BP, CBC, CMP wnl, UPC 0.16 07/03/22 34w4d [facility] - 148/67, CBC/CMP WNL, UPC 0.15 07/24/22: BPs normal to mild range 07/30: [facility] visit to r/o preE, normotensive, CBC/CMP WNL, UPC 0.16 07/31: BPs consistently 130s/80s, BP normal at visit Plan: -Continue home BP monitoring -Given strict return precautions -Patient to take BP at home 1-2 times daily -Currently recommend delivery at 38-39 weeks with diagnosis of likely cHTN -rCS scheduled at 39 wga - 08/06/22 Assessment & Plan (05/24/2022 1:47 PM CDT): Following with ob for care - hx of 2 prior c-sections, no concerns at this time from my point of view Lower abdominal pain 05/22/2022 022 Overview (06/04/2022): Reports cramping pain all day now, contractions q2-3 hours. Has tried belly bands. Not helping much. Reports she is trying to walk. Seen in [facility] 05/17 and 05/28 for symptoms; SVE C/L/H, no contractions on toco, diagnosed with yeast infection 05/17 and treated with miconazole cream. R/o'ed for ROM on 05/28 US 05/23: EFW 1324g (48%), normal fluid. No mention of uterine window Plan [] strict [facility] precautions given Class 1 obesity due to exces s calories without serious comorbidity with body mass index (BMI) of 33.0 to 33.9 in adult 11/21/2021 Assessment & Plan (05/24/2022 1:47 PM CDT): Stable and currently Assessment & Plan (03/29/2022 9:05 AM CDT): BMI Follow-up includes: nutrition counseling and exercise counseling. Assessment & Plan (11/21/2021 12:59 PM CDT): HPI: Condition is not at/near goal A&P: Discussed/ordered labs, encouraged healthy, low carbohydrate lifestyle and at least 150min/week of exercise Closed fracture of fourth to e of right foot, initial encounter 10/02/2021 06/04/2022 Assessment & Plan (11/21/2021 1:10 PM CDT): Repeat xray - follow up with ortho Right wrist tendinitis 09/28/202006/04 Overview (03/27/2022): Glioma like nodularity noted in right wrist. Now with lipoma like structures in bilateral thighs. Counseled patient on following up with PCP. Assessment & Plan (05/24/2022 1:48 PM CDT): Will refer to pain mgmt and ortho for eval and rx. Could try steriod injection Tenosynovitis, de Quervain 09/28/2020 1 08/04/2021 Otosclerosis 06/04/2022 Overview (01/02/2022): - Pt reports [facility] Encounters Date Type Department Care Team Description 08/25/2024 Telephone [facility] Hematology [address] [facility] [address] [place] [address] Chasity Melendez 07/29/2024 3:24 AM RIBBON BLOCKMAKER - 07/29/2024 7:08 AM RIBBON BLOCKMAKER Emergency [facility] Emergency Department [address] [place] [address] Janae Moran MD Palpitations (Primary Dx) Discharge Disposition: Discharge to home or self care 06/30/2024 3:40 PM RIBBON BLOCKMAKER - 06/30/2024 11:59 PM RIBBON BLOCKMAKER Hospital Encounter [facility] [address] [place] [address] Discharge Disposition: Discharge to home or self care 06/30/2024 2:30 PM RIBBON BLOCKMAKER Office Visit [facility] [place] [address] [place] [address] Yimi Wasserman NP Intractable chronic migraine with aura with status migrainosus (Primary Dx); Tachycardia; Thrombocytopenia (HCC); Acute otitis externa of left ear, unspecified type; Psoriasis 06/30/2024 Orders Only [facility] INTERFACE [id number] Unknown, Notinfile from Last 3 Months Immunizations Immunization Administration Dates Next Due Adenovirus 05/06/2014 HPV9 06/09/2021,04/14/2021 Hep B, Adolescent or Pediatric 05/06/2014 Influenza LAIV (Nasal) 05/06/2014 Influenza, Quadrivalent, Rec ombinant, Egg Free, Preservative Free, Intramuscular 01/19/2023 Influenza, Quadrivalent, Spl it, Preservative Free, Intramuscular 07/05/2023,04/21/2022,04/14/2021 Influenza, Trivalent, Preser vative Free, Intramuscular 07/29/2024 Influenza, Unspecified 03/29/2022(Deferr ed: Patient Refused),09/19/2021(Deferred: Patient Refused) MMR 08/08/2022 Meningococcal MCV4P (Menactra) 05/06/2014 Pneumococcal Conjugate Pcv20 07/05/2023 Pneumococcal Polysaccharide PPV23 06/09/2021 Tdap 05/22/2022,05/06/2014 Surgical History Surgery Date Site/Laterality Comments SECTION ANKLE FRACTURE SURGERY Left had surgery 5 separate times WRIST SURGERY FRACTURE SURGERY Medical History Medical History Date Comments Fibromyalgia Pituitary tumor non cancerous ADHD (attention deficit hype ractivity disorder) Depression PPD, was hospita lized after delivery in 2019 Migraines Spina bifida (HCC) Scoliosis Otosclerosis Carrier of fragile X chromosome Anxiety Family History Medical History Relation Name Comments Depression Brother pattie Developmental delay Brother pattie Hearing loss Brother pattie Learning disabilities Brother pattie Mental illness Brother pattie Obesity Brother pattie Autism Child Asthma Father jerzy Depression Father jerzy Mental illness Father jerzy defects Maternal Grandmother ronaldo Heart attack Maternal Grandmother ronaldo Hypertension Maternal Grandmother ronaldo Mental illness Maternal Grandmother ronaldo Stroke Maternal Grandmother ronaldo Anemia Mother aylin Arthritis Mother aylin Asthma Mother aylin Depression Mother aylin Diabetes Mother aylin Drug abuse Mother aylin Hypertension Mother aylin Memory loss Mother aylin Mental illness Mother aylin Clotting disorder Paternal Grandmother lizy Kidney disease Paternal Grandmother lizy Mental illness Paternal Grandmother lizy Obesity Paternal Grandmother lizy Stroke Paternal Grandmother lizy Developmental delay Son whylder Relation Name Status Comments Brother pattie Child Alive Father jerzy Maternal Grandmother ronaldo Mother aylin Paternal Grandmother lizy Son whylder Social History Tobacco Use Types Packs/Day Years Used Date Smoking Tobacco: Every Day Cigarettes Vaping Smokeless Tobacco: Never Tobacco Cessation:Ready to Q uit: Not Asked; Counseling Given: Not Answered Alcohol Use Standard Drinks/Week Comments Yes 0 (1 standard drink = 0.6 oz pur e alcohol) Humiliation, Afraid, Rape, and Kick questionnair e Answer Date Recorded Within the last year, have y ou been afraid of your partner or ex-partner? No 12/11/2021 Within the last year, have y ou been humiliated or emotionally abused in other ways by your partner or ex-partner? No Within the last year, have y ou been kicked, hit, slapped, or otherwise physically hurt by your partner or ex-partner? No 12/11/2021 Within the last year, have y ou been raped or forced to have any kind of sexual activity by your partner or ex-partner? No 12/11/2021 Social Connection and Isolation Panel [NHANES] A nswer Date Recorded In a typical week, how many times do you talk on the phone with family, friends, or neighbors? Never 07/30/2022 How often do you get together with friends or re latives? Never 07/30/2022 How often do you attend yarsani or pentecostal serv ices? Never 07/30/2022 Do you belong to any clubs o r organizations such as yarsani groups, unions, fraternal or athletic groups, or school groups? No 07/30/2022 How often do you attend meet ings of the clubs or organizations you belong to? Never 07/30/2022 Marital Status Not on file 07/30/2022 AUDIT-C Answer Date Recorded Q1: How often do you have a drink containing alc ohol? Monthly or less 03/31/2024 Q2: How many drinks containi ng alcohol do you have on a typical day when you are drinking? 1 or 2 03/31/2024 Q3: How often do you have si x or more drinks on one occasion? Never 03/31/2024 Overall Financial Resource Strain (CARDIA) Answe r Date Recorded How hard is it for you to pa y for the very basics like food, housing, medical care, and heating? Not hard at all 07/30/2022 PHQ-2 Answer Date Recorded PHQ-2 Total Score (If total score is 3 or more points, staff should administer the PHQ-9) 4 03/31/[facility] - Occupational Stress Questionnaire Answer Date Recorded Do you feel stress - tense, restless, nervous, or anxious, or unable to sleep at night because your mind is troubled all the time - these days? Very much 07/30/2022 Exercise Vital Sign Answer Date Recorde d On average, how many days pe r week do you engage in moderate to strenuous exercise (like a brisk walk)? 7 days 07/30/2022 On average, how many minutes do you engage in exercise at this level? 60 min 07/30/2022 Hunger Vital Sign Answer Date Recorded Within the past 12 months, y ou worried that your food would run out before you got the money to buy more. Never true 09/04/19 23 Within the past 12 months, t he food you bought just didn't last and you didn't have money to get more. Never true 09/04/2022 PRAPARE - Transportation Answer Date Re corded In the past 12 months, has l ack of transportation kept you from medical appointments or from getting medications? No 03/2023 In the past 12 months, has l ack of transportation kept you from meetings, work, or from getting things needed for daily living? No 07/30/2022 Housing Stability Vital Sign Answer Igor e Recorded In the last 12 months, was t here a time when you were not able to pay the mortgage or rent on time? No 07/30/2022 Number of Places Lived in the Last Year Not on f ile 07/30/2022 In the last 12 months, was t here a time when you did not have a steady place to sleep or slept in a snf (including now)? No 07/30/2022 Homeland Depression Scale Answer Date Recorded Homeland Depression Scale Total 11 09/04/2022 The thought of harming myself has occurred to me . Never 09/04/2022 Personal Safety Answer Date Recorded Have you ever been in or are you currently in a harmful physical or emotional relationship or is someone making you feel afraid or unsafe? Denies 07/29/2024 Education Answer Date Recorded What is the highest level of school you have completed or the highest degree you have received? Some college, no degree 12/11/2021 Comments No Sex and Gender Information Value Date Recorded Sex Assigned at Not on file Legal Sex Female 4:51 PM [employer] Gender Identity Female 11/17/2021 1:47 PM CDT Sexual Orientation Straight 12/30/2023 3: 10 AM CDT Obstetrics History Para Term AB IAB SAB Ectopic Multiple Livin g Live Births 4 3 3 1 1 0 3 3 Date Outcome GA Total Labor Labor/2nd/3rd Weight Sex Type Anes PTL Kayli A1 A5 Name Clin 2014 Term M CS-LT ranv Livin g Complications:Failure to Pro paul in First Stage Delivery Location:[place] 2019 Term M CS-LT ranv Livin g Complications:Pre eclampsia 2021 SAB 023 Term 39w 3d 0h 02m 0h 02m 3.84 kg (8 lb 7.5 oz) M C-Sec tion Spinal N Livin g 9 9 ANGEL CUBA , Chikis kerr MD Complications:None Delivery Location:[facility] ([facility] L [facility] D PROC[facility]URE) Last Filed Vital Signs Vital Sign Reading Time Taken Comments Blood Pressure 113/69 07/29/2024 5:15 AM [employer]ON BLOCK[employer] Pulse 90 07/29/2024 6:00 AM [employer] BLOCK[employer] Temperature 37.3 C (99.1 F) 07/29/2024 2:01 AM [employer] BLOCK[employer]ER Respiratory Rate 19 07/29/2024 6:00 AM [employer]ON BLOCK[employer]KER Oxygen Saturation 100% 07/29/2024 6:00 AM [employer]ON BLOCK[employer]KER Inhaled Oxygen Concentration - - Weight 51.7 kg (114 lb) 07/29/2024 2:05 AM [employer] BLOCK[employer] Height 160 cm (5' 3 ) 07/29/2024 2:05 AM [employer] BLOCK[employer] Body Mass Index 20.19 07/29/2024 2:05 AM [employer]ON BLOCK[employer]KER Plan of Treatment Health Maintenance Due Date Last Done Comments Cervical Cancer Screening 1995 Varicella Vaccines (1 of 2 - 13+ 2-dose series) 06/03/2014 HPV Vaccines (3 - 3-dose series) 10/12/2021 06/09/20 21, 04/14/2021 Depression Screening 03/31/2025 03/31/2024, 03/31/2024, 09/04/2022, Additional history exists Regular Well Visit/Exam 18-64 03/31/2025 03/31/2024, 03/31/2024 DTaP/Tdap/Td Vaccine (3 - Td or Tdap) 05/22/2032 05/22/2022, 05/06/2014 Hepatitis B Screening Completed 05/06/2014 Hepatitis C Screening Completed 12/11/2021 Pneumococcal vaccine <65 Completed 07/05/2023, 05/22 Influenza Vaccine Completed 07/29/2024, , 01/19/2023, Additional history exists Procedures Procedure Name Priority Date/Time Associated Diagnosis Comments TROPONIN T HIGH-SENSITIVITY 2-HOUR Timed 07/29/2024 4:45 AM [employer] BLOCK[employer]KER XR CHEST 1 VIEW ED 07/29/2024 2:34 AM [employer]ON BLOCK[employer] ECG 12-LEAD STAT 07/29/2024 2:17 AM [employer] BLOCK[employer] EGFR STAT 07/29/2024 2:13 AM [employer] BLOCK[employer]KER DIFFERENTIAL AUTO STAT 07/29/2024 2:1 3 AM [employer] BLOCK[employer]ER TROPONIN T HIGH-SENSITIVITY SERIES (BASELINE, 2HR, 4HR, 6HR) STAT 07/29/2024 2:13 AM [employer]ON BLOCK[employer]KER COMPREHENSIVE METABOLIC PANEL STAT 07/29/2024 2:13 AM [employer]BON BLOCK[employer]KER CBC WITH AUTO DIFFERENTIAL STAT 07/29/2024 2:13 AM [employer] BLOCK[employer]KER CHRISTOPHER QUALITATIVE WITH REFLEX TO CHRISTOPHER QUANTITATIVE Routine 06/30/2024 8:18 PM [employer] BLOCK[employer] Thrombocytopenia (HCC) Psoriasis DIFFERENTIAL AUTO Routine 06/30/2024 6:5 6 PM [employer] Thrombocytopenia (HCC) Psoriasis CBC WITH AUTO DIFFERENTIAL Routine 06/30/2024 6:56 PM [employer] Thrombocytopenia (HCC) Psoriasis ERYTHROCYTE SEDIMENTATION RATE Routine 06/30/2024 6:56 PM [employer] BLOCK[employer] Thrombocytopenia (HCC) Psoriasis KARMA-1 ANTIBODY Routine 06/30/2024 6:54 PM [employer] BLOCK[employer] Thrombocytopenia (HCC) Psoriasis HEMOCHROMATOSIS HFE GENE ANALYSIS Routine 06/30/2024 6:54 PM [employer] Thrombocytopenia (HCC) Psoriasis ANTIHISTONE ANTIBODIES Routine 6:54 PM [employer] Thrombocytopenia (HCC) Psoriasis CRP (ACUTE PHASE) Routine 06/30/2024 6:5 2 PM [employer] Thrombocytopenia (HCC) Psoriasis RHEUMATOID FACTOR Routine 06/30/2024 6:5 2 PM [employer]ER Thrombocytopenia (HCC) Psoriasis IRON PROFILE W/ IBC Routine 06/30/2024 6 :52 PM [employer] Thrombocytopenia (HCC) Psoriasis FERRITIN Routine 06/30/2024 6:52 PM [employer] BLOCK[employer]ER Thrombocytopenia (HCC) Psoriasis FOLATE Routine 06/30/2024 6:52 PM [employer] BLOCK[employer] Thrombocytopenia (HCC) Psoriasis VITAMIN B12 Routine 06/30/2024 6:52 PM [employer] Thrombocytopenia (HCC) Psoriasis HLA DISEASE ASSOCIATION B 27 Routine 06/30/2024 6:50 PM [employer]ON BLOCK[employer]KER HEPATITIS C ANTIBODY Routine 12/11/2021 11:23 AM CDT , unspecified gestational age from Last 3 Months or Most Recently Relevant to Health Maintenance Results * Troponin T high-sensitivity 2-hour (07/29/2024 4:45 AM [employer]ON BLOCK[employer]KER) Trop T hs <6 <=14 ng/L Comment: Interpretive Data For further hscTnT resources including the diagnostic algorithm and an aid in interpretation, copy and paste this link: https://nrl.testcatalog.org/show/hsTrop Current Interpretive Data last revised 2020. Trop T hs delta 0 ng/L [facility] Trop T hs interp Insignificant [facility] ([facility]) Blood 07/29/2024 4:45 AM [employer]ON BLOCK[employer]KER 07/29/2024 4:51 AM [employer] BLOCK[employer] us Janae Moran MD LAB BLOOD ORDERABLES Final Resul t [facility] [address] [facility] Department [place] [address] * XR Chest 1 Vw Portable (if patient condition/safety warrant portable) (07/29/2024 2:34 AM RIBBON BLOCK[employer]KER) Anatomical Region Laterality Modality Body, Chest N/A Computed Radiogr aphy 07/29/2024 3:20 AM [employer]ON BLOCK[employer]KER Narrative 07/29/2024 3:20 AM [employer]ON BLOCK[employer]KER EXAM DESCRIPTION: XR CHEST 1 VIEW REASON FOR STUDY: chest pain C/o chest pressure, heart palpitations and weakness on the left side of the body that started tonight. Current smoker TECHNIQUE: Single radiographic view of the chest. COMPARISON: Chest x-ray of December 23, 2023. FINDINGS: LUNGS/PLEURA: No focal consolidation or pneumothorax. No pleural effusion. There is no significant change as compared to previous study. HEART/MEDIASTINUM: Cardiac silhouette is normal. Remaining mediastinal silhouettes are unremarkable. HARDWARE/LINES/TUBES: None. BONES: No acute findings. IMPRESSION: No acute cardiopulmonary abnormality. THIS IS AN ELECTRONICALLY VERIFIED FINAL REPORT 07/29/2024 3:20 AM - Electronically signed by María Al M.D. SN: Report ID: [id number] Reading Location: [id number] Procedure Note María Al MD - 07/29/2024 EXAM DESCRIPTION: XR CHEST 1 VIEW REASON FOR STUDY: chest pain C/o chest pressure, heart palpitations and weakness on the left side ofthe body that started tonight. Current smoker TECHNIQUE: Single radiographic view of the chest. COMPARISON: Chest x-ray of December 23, 2023. FINDINGS: LUNGS/PLEURA: No focal consolidation or pneumothorax. No pleuraleffusion. There is no significant change as compared to previous study. HEART/MEDIASTINUM: Cardiac silhouette is normal. Remaining mediastinal silhouettes are unremarkable. HARDWARE/LINES/TUBES: None. BONES: No acute findings. IMPRESSION: No acute cardiopulmonary abnormality. THIS IS AN ELECTRONICALLY VERIFIED FINAL REPORT 07/29/2024 3:20 AM - Electronically signed by María Al M.D. SN: Report ID: [id number] Reading Location: [id number] Janae Moran MD IMG XR PROCEDURES Final Result * ECG 12 lead (07/29/2024 2:17 AM [employer]ON BLOCK[employer]KER) 07/29/2024 2:17 AM [employer] BLOCK[employer]KER Narrative [facility] - 07/29/2024 6:57 AM R[employer]ON BLOCK[employer]KER Vent Rate: 105 bpm RR Interval: 570 msec RI Interval: 124 msec QRS Duration: 115 msec QT Interval: 339 msec QTC Interval: 400 msec P-R-T Cal[place]so: 73 - 57 - 40 degrees IMPRESSION: SINUS TACHYCARDIA INCOMPLETE RIGHT BUNDLE BRANCH BLOCK [90+ ms QRS DURATION, TERMINAL R IN V1/V2, 40+ ms S IN I/aVL/V4/V5/V6] ABNORMAL RHYTHM ECG NO CHANGE FROM PREVIOUS TRACING NOTED Electronically Signed By: Víctor Matson MD us Janae Moran MD ECG ORDERABLES Final Result [facility] * Troponin T high-sensitivity series (baseline, 2hr, 4hr, 6hr) (07/29/2024 2:13 AM R[employer]ON BLOCK[employer]) Trop T hs <6 <=14 ng/L Comment: Interpretive Data For further hscTnT resources including the diagnostic algorithm and an aid in interpretation, copy and paste this link: https://nrl.testcatalog.org/show/hsTrop Current Interpretive Data last revised 2020. Blood 07/29/2024 2:13 AM [employer]ON BLOCK[employer]KER 07/29/2024 2:22 AM [employer] BLOCK[employer]KER us Janae Moran MD LAB BLOOD ORDERABLES Final Resul t [facility] [address] Department [place] [address] * eGFR (07/29/2024 2:13 AM R[employer] BLOCK[employer]KER) eGFR >90 >=60 mL/min/1. 73 m2 Comment: Interpretive Data Reference Interval Normal >/= 90 mL/min/1.73m2 Mildly decreased* 60 - 89 mL/min/1.73m2 Mildly to moderately decreased 45 - 59 mL/min/1.73m2 Moderately to severely decreased 30 - 44 mL/min/1.73m2 Severely decreased 15 - 29 mL/min/1.73m2 Kidney Failure < 15 mL/min/1.73m2 *Relative to young adult level Estimated glomerular filtration rate is determined by the 2020 CKD-EPI equation recommended by the National Kidney Foundation (A Unifying Approach to GFR Estimation: Recommendations of the NKF-ASK Task Force on Reassessing the Inclusion of Race in Diagnosing Kidney Disease, JASN 2020). The CKD-EPI equation should not be used for patients with unstable renal function and has not been validated in children and those over 70. Current interpretive data was last reviewed 2021. Blood 07/29/2024 2:13 AM [employer]ON BLOCK[employer]KER 07/29/2024 2:22 AM [employer]ON BLOCK[employer] us Janae Moran MD LAB BLOOD ORDERABLES Final Resul t [facility] ([place]) [address] [facility] Department [place] [address] * Differential, auto (07/29/2024 2:13 AM R[employer] BLOCK[employer]KER) Neutrophil abs 4.1 1.5 - 6.5 K/cumm Imm gran abs 0.0 0.0 - 0.1 K/cumm [facility] ([facility]) Lymphocyte abs 2.0 0.8 - 3.3 K/cumm [facility] ([facility]) Monocyte abs 0.4 0.2 - 0.8 K/cumm [facility] ([facility]) Eosinophil abs 0.2 0.0 - 0.5 K/cumm [facility] ([facility]) Basophil abs 0.0 0.0 - 0.1 K/cumm [facility] ([facility]) Neutrophil pct 61.2 % [facility] ([facility]) Comment: Interpretive Data Percent cell count reference ranges are not reported, since discordance with absolute values may lead to misinterpretation of CBC data. Current Interpretive Data was last revised on 2017. Imm gran pct 0.1 % [facility] ([facility]) Comment: Interpretive Data Percent cell count reference ranges are not reported, since discordance with absolute values may lead to misinterpretation of CBC data. Current Interpretive Data was last revised on 2017. Lymphocyte pct 29.0 % [facility] ([facility]) Comment: Interpretive Data Percent cell count reference ranges are not reported, since discordance with absolute values may lead to misinterpretation of CBC data. Current Interpretive Data was last revised on 2017. Monocyte pct 6.4 % [facility] ([facility]) Comment: Interpretive Data Percent cell count reference ranges are not reported, since discordance with absolute values may lead to misinterpretation of CBC data. Current Interpretive Data was last revised on 2017. Eosinophil pct 2.7 % [facility] ([facility] Comment: Interpretive Data Percent cell count reference ranges are not reported, since discordance with absolute values may lead to misinterpretation of CBC data. Current Interpretive Data was last revised on 2017. Basophil pct 0.6 % [facility] ([facility]) Comment: Interpretive Data Percent cell count reference ranges are not reported, since discordance with absolute values may lead to misinterpretation of CBC data. Current Interpretive Data was last revised on 2017. Blood 07/29/2024 2:13 AM [employer]ER 07/29/2024 2:22 AM [employer]ON BLOCK[employer] us Janae Moran MD LAB BLOOD ORDERABLES Final Resul t [facility] ([facility]) [address] [facility] Department [place] [address] * (ABNORMAL) CBC with auto differential (07/29/2024 2:13 AM [employer] BLOCK[employer]) WBC 6.7 3.8 - 9.9 K/cumm Hgb 11.4(L) 11.9 - 15.5 g/dL [facility] ([facility]) Hct 34.1(L) 35.6 - 45.5 % [facility] ([facility]) Plt 378 150 - 400 K/cumm [facility] ([facility]) MPV 8.9(L) 9.1 - 12.3 fL [facility] ([facility]) RBC 3.89(L) 3.90 - 5.20 M/cumm [facility] ([facility]) MCV 87.7 81.3 - 96.4 fL [facility] ([facility]) MCH 29.3 27.1 - 33.3 pg [facility] ([facility]) MCHC 33.4 32.3 - 35.7 g/dL [facility]) RDW CV 13.2 11.1 - 14.9 % [facility]) RDW SD 42.3 35.7 - 48.1 fL [facility] ([facility]) NRBC abs 0.00 0.00 - 0.01 K/cumm [facility] ([facility]) Blood (Blood, Venous) 07/29/2024 2:13 AM [employer] BLOCK[employer]KER 07/29/2024 2:22 AM [employer] BLOCK[employer]KER us Janae Moran MD LAB BLOOD ORDERABLES Final Resul t [facility] ([facility]) [address] [facility] Department [place] [address] * (ABNORMAL) Comprehensive metabolic panel (07/29/2024 2:13 AM [employer] BLOCK[employer]) Sodium 137 135 - 145 mmol/L Potassium, pl 3.7 3.3 - 4.9 mmol/L [facility] ([facility]) Chloride 105 97 - 110 mmol/L [facility] CO2 21(L) 22 - 32 mmol/L [facility]) Anion gap 11 2 - 15 mmol/L [facility]) BUN 10 6 - 25 mg/dL [facility] ([facility]) Creatinine 0.85 0.60 - 1.10 mg/dL [facility] ([facility]) Glucose 99 70 - 199 mg/dL [facility] ([facility]) Comment: Interpretive Data Fasting glucose >/= 126 mg/dl is diagnostic for diabetes. Fasting is defined as no caloric intake for at least 8 hours. Fasting glucose between 100 mg/dl to 125 mg/dl is diagnostic of prediabetes. In a patient with classic symptoms of hyperglycemia or hyperglycemic crisis, a random glucose >/= 200 mg/dl is diagnostic for diabetes. In the absence of unequivocal hyperglycemia, results should be confirmed by repeat testing. The classification and Diagnosis of Diabetes Diabetes Care 202; 46: S19-S40. Current interpretive data was last revised 2022. Calcium 8.5 8.5 - 10.3 mg/dL [facility] ([facility]) Bilirubin, total <0.2 0.1 - 1.2 mg/dL [facility] ([facility]) Protein, pl 6.6 6.5 - 8.5 g/dL [facility] ([facility]) Albumin 4.2 3.5 - 5.0 g/dL [facility] ([facility]) Alk phos 48 40 - 130 Units/L [facility] ([facility]) ALT 14 7 - 45 Units/L [facility] ([facility]) AST 16 10 - 45 Units/L [facility] ([facility]) Blood 07/29/2024 2:13 AM [employer]ON BLOCK[employer]KER 07/29/2024 2:22 AM R[employer]ON BLOCK[employer]KER us Janae Moran MD LAB BLOOD ORDERABLES Final Resul t Performing Organization Address [facility]/ZIP Co de Phone Number [facility] ([facility]) [address] [facility] Department [place] [address] * CHRISTOPHER ab ql w/rflx to CHRISTOPHER qn (06/30/2024 8:18 PM RIBBON BLOCK[employer]KER) CHRISTOPHER Negative Comment: Interpretive Data Normal range for CHRISTOPHER Qualitative Antibody = Negative. 1. CHRISTOPHER is performed using indirect immunofluorescence against HEp-2 cells 2. CHRISTOPHER titers are performed on all positive qualitative results. 3. A significantly positive CHRISTOPHER result is defined as a positive nuclear fluorescence at a titer of 1:80 or greater. 4. 15% of normal people above age 65 have significantly positive CHRISTOPHER results. 5% or less of normal people age 65 or under have significantly positive CHRISTOPHER results. Current interpretive data was last revised on 2020. Testing performed by: [facility], [address] [place]., [address] Blood 06/30/2024 8:18 PM [employer]ON BLOCK[employer]KER 06/30/2024 11:29 PM [employer] BLOCK[employer]KER us Yimi Wasserman NP LAB BLOOD ORDERABLES Final Re sult Performing Organization Address City/[facility]/ZIP Co de Phone Number [facility] [address] Department [place] [address] * Differential, auto (06/30/2024 6:56 PM R[employer]ON BLOCK[employer]KER) Neutrophil abs 3.4 1.5 - 6.5 K/cumm Imm gran abs 0.0 0.0 - 0.1 K/cumm [facility] Lymphocyte abs 1.5 0.8 - 3.3 K/cumm [facility] Monocyte abs 0.3 0.2 - 0.8 K/cumm [facility] Eosinophil abs 0.2 0.0 - 0.5 K/cumm [facility] Basophil abs 0.0 0.0 - 0.1 K/cumm [facility] Neutrophil pct 62.9 % [facility] Comment: Interpretive Data Percent cell count reference ranges are not reported, since discordance with absolute values may lead to misinterpretation of CBC data. Current Interpretive Data was last revised on 2017. Imm gran pct 0.2 % [facility] Comment: Interpretive Data Percent cell count reference ranges are not reported, since discordance with absolute values may lead to misinterpretation of CBC data. Current Interpretive Data was last revised on 2017. Lymphocyte pct 26.9 % [facility] Comment: Interpretive Data Percent cell count reference ranges are not reported, since discordance with absolute values may lead to misinterpretation of CBC data. Current Interpretive Data was last revised on 2017. Monocyte pct 6.0 % [facility] Comment: Interpretive Data Percent cell count reference ranges are not reported, since discordance with absolute values may lead to misinterpretation of CBC data. Current Interpretive Data was last revised on 2017. Eosinophil pct 3.5 % [facility] Comment: Interpretive Data Percent cell count reference ranges are not reported, since discordance with absolute values may lead to misinterpretation of CBC data. Current Interpretive Data was last revised on 2017. Basophil pct 0.5 % [facility] Comment: Interpretive Data Percent cell count reference ranges are not reported, since discordance with absolute values may lead to misinterpretation of CBC data. Current Interpretive Data was last revised on 2017. Blood 06/30/2024 6:56 PM [employer] BLOCK[employer]KER 06/30/2024 6:56 PM [employer] BLOCK[employer]KER us Yimi Wasserman NP LAB BLOOD ORDERABLES Final Re sult [facility] [address] Department [place] [address] * (ABNORMAL) CBC with auto differential (06/30/2024 6:56 PM R[employer]ON BLOCK[employer]KER) WBC 5.5 3.8 - 9.9 K/cumm Hgb 11.6(L) 11.9 - 15.5 g/dL [facility] Hct 36.5 35.6 - 45.5 % [facility] Plt 410(H) 150 - 400 K/cumm [facility] MPV 9.8 9.1 - 12.3 fL [facility] RBC 4.01 3.90 - 5.20 M/cumm [facility] MCV 91.0 81.3 - 96.4 fL [facility] MCH 28.9 27.1 - 33.3 pg [facility] MCHC 31.8(L) 32.3 - 35.7 g/dL [facility] RDW CV 13.3 11.1 - 14.9 % [facility] RDW SD 44.0 35.7 - 48.1 fL [facility] NRBC abs 0.00 0.00 - 0.01 K/cumm [facility] Blood 06/30/2024 6:56 PM [employer]ON BLOCK[employer]KER 06/30/2024 6:56 PM [employer]ON BLOCK[employer]KER Yimi Wasserman [employer] LAB BLOOD ORDERABLES Final Re sult Performing Organization Address City/[facility] Co de Phone Number [facility] [address] [employer] [address] [place], [place] [id number] * Erythrocyte sedimentation rate (06/30/2024 6:56 PM RIBBON BLOCKMAKER) [facility] Erythrocyte sedimentation rate 10 1 - 20 mm/hr Blood 06/30/2024 6:56 PM [employer]ON BLOCK[employer]KER 06/30/2024 6:56 PM [employer] BLOCK[employer]KER Yimi Wasserman [employer] ENG[employer] LAB BLOOD ORDERABLES Final Re sult Performing Organization Address City/[facility]/ZIP Co de Phone Number [facility] [address] [place] [address] * Karma-1 antibody (06/30/2024 6:54 PM RIBBON BLOCKMAKER) [facility] Karma 1 Antibody, IgG <0.2 <=0.9 Ab Index Comment: Interpretive Data Negative: < 1.0 Ab Index Positive: > or = 1.0 Ab Index Current interpretive data was last revised on 2016. Testing performed by: [facility], [address] [place]., [address] Blood 06/30/2024 6:54 PM R[employer]BON BLOCKMAKER 06/30/2024 9:45 PM RIBBON BLOCKMAKER Yimi Wasserman [employer] LAB BLOOD ORDERABLES Final Re sult Performing Organization Address City/[facility]/ZIP Co de Phone Number [facility] [address] Department [email or web address] [place], [place] [id number] * Antihistone antibodies (06/30/2024 6:54 PM RIBBON BLOCKMAKER) Pathologist [facility] Antihistone TNP [facility] Comment: TEST NOT PERFORMED. Quantity not sufficient. Test Performed at: [facility] [address] [id number] DEL[place] Tamiko WILSON Blood 06/30/2024 6:54 PM RIBBON BLOCKMAKER 06/30/2024 6:54 PM RIBBON BLOCKMAKER Yimi Wasserman [employer] LAB BLOOD ORDERABLES Final Re sult Performing Organization Address City/[facility]/ZIP Co de Phone Number [facility] [address] Department [email or web address] [address] [facility] * Hemochromatosis HFE Gene Analysis (06/30/2024 6:54 PM RIBBON BLOCKMAKER) Pathologist [facility] HFE Genotype H63D Heterozygous [facility] Comment:Testing performed by : [facility], [address] [place]., [address] HFE p.C282Y Negative [facility] Comment:Testing performed by : [facility], [address] [facility], [place]., [address] HFE p.H63D Heterozygous [facility] Comment:Testing performed by : [facility], [address] [place]., [address] HFE Interpretation This genotype is associated with carrier status of hereditary hemochromatosis (HH); however, it does not exclude the diagnosis of HH. Approximately 4% of Caucasians with HH in [place] have this genotype. The frequency in other ethnicities may vary. This genotype is also found in approximately 23% of the general population in [place]. There is currently no definitive clinical evidence to support an increased risk of iron overload with this result. Some individuals who are heterozygous for HFE p. H63D have elevated serum transferrin saturation and ferritin concentrations, but they do not develop complications of iron overload. Correlation of clinical findings and family history with genotype results is recommended for establishing a diagnosis of HH. HH is an autosomal recessive disorder of iron metabolism that results in iron overload and potential organ failure. It is one of the most common genetic disorders in individuals of - ancestry, with an estimated carrier frequency of 10%. HH is associated with variants in the HFE gene. Most individuals with HH (60-90%) are homozygous for the p.C282Y variant. A smaller percentage of affected individuals are either compound heterozygous for the p.C282Y and p.H63D variants (3%-8%), or homozygous for the p.H63D variant (2%). Genetic counseling is recommended for discussion of the clinical implications of this result. [facility] Comment:Testing performed by : [facility], [address] [place]., [address] HFE Specimen Whole Blood [facility] Comment:Testing performed by : [facility], [address] [place]., [address] HFE Result Review KAYLAN Bueno MB(ASCP)Arleth CATHERINE(ASCP)CM Crystal Growing Technician, on 07/03/2024 11:47:05 RIBBON BLOCKMAKER. [facility] Comment: Interpretive Data Method: This assay detects the two variants in the HFE gene, p.C282Y ([id number]: c.845G>A) and p.H63D ([id number]: c.187C>G), that are commonly associated with HH. The variants are detected by a multiplex PCR based assay performed on the [employer] Fast Dx Real-Time PCR instrument. Limitations: Bone Marrow transplants from allogenic donors may interfere with interpretation of test results. Alternative specimen types including cultured fibroblasts may be necessary for accurate testing results. This assay does not rule out the presence of other disease-causing mutations in the HFE gene or in other genes associated with HH. Since genetic variation and additional factors can affect the accuracy of genotyping, these results should be interpreted in the context of clinical findings, family history, and other laboratory testing (e.g. serum transferrin-iron saturation and serum ferritin). This test was developed and its performance characteristics determined by the [facility] Diagn[facility] Laboratory at [facility] in a manner consistent with CLIA requirements. This test has not been cleared or approved by the U.S. Food and Drug Administration. References: Trent JOHN, Chad WALKER, Sen CC, et al. Tnxn-nqoiiqvt-omgrlon disease in HFE hereditary hemochromatosis. N Engl J Med. 2008;358:221 3 0. Moise BR, Urbano PC, Surya KV, et al. Diagnosis and management of hemochromatosis: 2011 practice guideline by the [place] Association for the Study of Liver Diseases. Hepatology. 2011;54:328 4 3. Ramiro DEVIN, Monroy CQ, Timothy RT. HFE gene: structure, function, mutations, and associated iron abnormalities. Gene. 2015;574:179 9 2. Asim ArandaJ, Lyle GONZALES, Raeann REAL, et al. Clinical and biochemical abnormalities in people heterozygous for hemochromatosis. N Engl J Med. 1996;335:1799 8 05. Dora PA, Ahmet LW, Gabe DJ, Dom Li D, Whitney E, Coretta DelgadilloK. A population- based study of the biochemical and clinical expression of the H63D hemochromatosis mutation. Gastroenterology. 2002;122:646 5 1. Chad WALKER, Bryanna NA, Hank RAGLAND, et al. HFE C282Y/H63D compound heterozygotes are at low risk of hemochromatosis-related morbidity. Hepatology. 2009;50:94 1 01. Hiram DE LA TORRE, Nahid Ling W. HFE gene and hereditary hemochromatosis: a HuGE review. Human Genome Epidemiology. Am J Epidemiol. 2001 Feb 19; 154(3):193-206. Levi A, Manda Turk, Byron Astudillo, et al. Two novel nonsense mutations of HFE gene in five unrelated Chinese patients with hemochromatosis. Gastroenterology. 2000;119:441 5 . Sky EP, Rupali BA, Charlie EL, et al. Screening for hereditary hemochromatosis: a systematic review for the U.S. Preventive Services Task Force. [facility] Attendant Med. 2006;145:209 2 3. This test was performed at: [facility], [address] [facility], [place][id number], Anna Bryant, Ph.D., [place], [address], [place] Current interpretive data was last revised 2021. Testing performed by: [facility], [address] [facility], [place]., [address] Blood 06/30/2024 6:54 PM RIBBON BLOCKMAKER 06/30/2024 10:18 PM RIBBON BLOCKMAKER Yimi Wasserman FIRE DEPARTMENT MARINE ENGINEER LAB GENETIC TESTING Final Res ult Performing Organization Address City/[facility]/ZIP Co de Phone Number [facility] [address] [place] [place] [address] BJ * (ABNORMAL) Iron profile w/ IBC (06/30/2024 6:52 PM RIBBON BLOCKMAKER) [facility] Iron 41 35 - 145 mcg/dL TIBC 281 250 - 400 mcg/dL [facility] Transferrin saturation 15(L) 20 - 50 % [facility] Blood 06/30/2024 6:52 PM RIBBON BLOCKMAKER 06/30/2024 6:52 PM RIBBON BLOCKMAKER Yimi Wasserman FIRE DEPARTMENT MARINE ENGINEER LAB BLOOD ORDERABLES Final Re sult [facility] [address] [place] [address] * Rheumatoid factor (06/30/2024 6:52 PM RIBBON BLOCKMAKER) [facility] Rheumatoid factor, quant <10 <=15 IUnits/mL Blood 06/30/2024 6:52 PM RIBBON BLOCKMAKER 06/30/2024 6:52 PM RIBBON BLOCKMAKER us Yimi Wasserman FIRE DEPARTMENT MARINE ENGINEER LAB BLOOD ORDERABLES Final Re sult Performing Organization Address [facility] de Phone Number [facility] [address] [facility] [email or web address] [address] * CRP (acute phase) (06/30/2024 6:52 PM RIBBON BLOCKMAKER) CRP <3.0 <=10.0 mg/L Blood 06/30/2024 6:52 PM RIBBON BLOCKMAKER 06/30/2024 6:52 PM RIBBON BLOCKMAKER us Yimi Wasserman FIRE DEPARTMENT MARINE ENGINEER LAB BLOOD ORDERABLES Final Re sult Performing Organization Address [facility] Phone Number [facility] [address] [facility] [email or web address] [place], [place] [id number] * Folate (06/30/2024 6:52 PM RIBBON BLOCKMAKER) Folic acid 15.6 >=5.0 ng/mL Blood 06/30/2024 6:52 PM RIBBON BLOCKMAKER 06/30/2024 6:52 PM RIBBON BLOCKMAKER us Yimi Wasserman FIRE DEPARTMENT MARINE ENGINEER LAB BLOOD ORDERABLES Final Re sult Performing Organization Address [facility] de Phone Number [facility] [address] [facility] [email or web address] [place], [place] [id number] * Ferritin (06/30/2024 6:52 PM RIBBON BLOCKMAKER) Ferritin 21 15 - 150 ng/mL Blood 06/30/2024 6:52 PM RIBBON BLOCKMAKER 06/30/2024 6:52 PM RIBBON BLOCKMAKER us Yimi Wasserman FIRE DEPARTMENT MARINE ENGINEER LAB BLOOD ORDERABLES Final Re sult Performing Organization Address [facility] Co de Phone Number [facility] [address] Department [email or web address] [address] * Vitamin B12 (06/30/2024 6:52 PM RIBBON BLOCKMAKER) Pathologist [facility] Vitamin B12 1,017 230 - 1,250 pg/mL Blood 06/30/2024 6:52 PM RIBBON BLOCKMAKER 06/30/2024 6:52 PM RIBBON BLOCKMAKER us Yimi Wasserman FIRE DEPARTMENT MARINE ENGINEER LAB BLOOD ORDERABLES Final Re sult [facility] [address] Department [email or web address] [address] * HLA disease association B 27 (06/30/2024 6:50 PM RIBBON BLOCKMAKER) Pathologist [facility] HLA-B27 interp HLA-B*27 is Negative. HISTOT[facility] 06/30/2024 6:50 PM RIBBON BLOCKMAKER 07/06/2024 9:54 AM RIBBON BLOCKMAKER Narrative HISTOTRAC - 07/06/2024 9:54 AM RIBBON BLOCKMAKER HLA-B typing is performed using the reverse sequence specific oligonucleotide (r-SSO) method, which is based on an FDA approved IVD kit and validated by the [facility] laboratory. Interpretive comments: HLA-B*27 positivity confers increased risk for ankylosing spondylitis or nonradiographic axial spondyloarthritis. The absence of HLA-B*27 may help rule out these diagnoses Expected: HLA-B*27 has been found in 74% to 89% of patients with either nonradiographic axial spondyloarthritis or ankylosing spondylitis. The absolute risk of spondyloarthritis in persons with HLA-B*27 is 2% to 10%. (N Engl J Med 2016;374:2563-74) Testing performed at the [facility], [address] [place] [address], 5th floor, [place], [address]. CLIA # [id number]. Merced Yanez, Ph.D., Explosive Operator Fuse, [facility] Laboratory Rupert Alvarez M.D., Ph.D., Retail Product Demo Specialist, [facility] Anna Bryant, Ph.D., MICHAELIA Retail Product Demo Specialist, [facility] Clinical Laboratories Current methodology and interpretive comments were last revised on 02/11/2017 us Notinfile Unknown LAB BLOOD ORDERABLES Final Res ult HIST[facility] * Hepatitis C antibody (12/11/2021 11:23 AM CDT) Hep C Ab Nonreactive Nonreactive [facility] Comment:Antibodies to HCV no t detected. Does NOT exclude the possibility of recent exposure to HCV. Blood 12/11/2021 11:2 3 AM CDT 12/11/2021 11:55 AM CDT Jessie Oseguera MD LAB MICROBIOLOGY - GEN ERAL ORDERABLES Edited Result - Final Performing Organization Address City/[facility] Co de Phone Number [facility] [address] [facility] [place] [address] from Last 3 Months or Most Recently Relevant to Health Maintenance Insurance [address] [place] [address] [facility] [address] [place] [address] [facility] Advance Directives For more information, please contact: [phone] * Full Code (Latest Code Status on File) Date Activated Date Inactivated Comments 08/06/2022 11:52 AM 08/08/2022 3:16 PM * Full Code Date Activated Date Inactivated Comments 08/06/2022 7:45 AM 08/06/2022 11:52 AM Full CPR in case of cardiopulmonary arrest Care Teams Frame Wirer Relationship Specialty Start Date End Date Yimi Wasserman NP [address] [place] [address] PCP - General Family Medicine 03/31/24 Petra Fabian MD [address] [place] [address] Resident Obstetrics and Gynecology 06/04/22
--- OUTSIDE RECORDS SUMMARY | 2024-09-16 18:43 | XMS_ITS | Referral Summary ---
Author Organization [facility] at the Medical Office Building Address [address] [place] [id number] Care Team Providers Care Radiology Receptionist Name Role Phone Caren, Petra Ann MD Unavailable Yimi Wasserman NP Primary Care Provider [phone] Encounters Date Type Department Care Team Description 08/25/2024 Telephone [place] [id number] [facility] Floor 6 [place] [address] Chasity Melendez 07/29/2024 3:24 AM CORNICE MAKER - 07/29/2024 7:08 AM [facility] Emergency [facility] Emergency Department [address] [place] [address] Janae Moran MD Palpitations (Primary Dx) Discharge Disposition: Discharge to home or self care 06/30/2024 Orders Only BW LAB INTERFACE [id number] Unknown, Notinfile 06/30/2024 3:40 PM CORNICE MAKER - 06/30/2024 11:59 PM CORNICE MAKER Hospital Encounter [facility] [address] [place] [address] Discharge Disposition: Discharge to home or self care 06/30/2024 2:30 PM CORNICE MAKER Office Visit [facility] [place] [address] [place] [address] Yimi Wasserman NP Intractable chronic migraine with aura with status migrainosus (Primary Dx); Tachycardia; Thrombocytopenia (HCC); Acute otitis externa of left ear, unspecified type; Psoriasis from Last 3 Months Allergies Active Allergy Reactions Criticality Noted Date [...] 2 (two) times a day 7.5 mL 4 Active hydrocortisone 2.5 % creamIndications: Psoriasis Apply [...] 07/02/2024 Assessment & Plan (07/03/2024 10:15 AM CORNICE MAKER): New Chronic condition. Reviewed holter monitor report and echo. Start Toprol 50mg every 24 hours. Consider counterintelligence/humint specialist referral. Thrombocytopenia 07/02/2024 Assessment & Plan (07/02/2024 4:52 PM CORNICE MAKER): Improving. Ordered and reviewed CBC- platelets are coming down. Continue aspirin 81mg daily. Acute otitis externa of left ear 07/02/2024 Assessment & Plan (07/02/2024 4:53 PM CORNICE MAKER): New. Start Ciprodex otic. Use ear drops [...] 07/02/2024 Assessment & Plan (07/03/2024 10:16 AM CORNICE MAKER): Chronic and stable. Start Hydrocortisone cream as [...] 022 Assessment & Plan (07/02/2022 3:14 PM CORNICE MAKER): Recommended ATs PRN both eyes (OU) due [...] today, continue below regimen -06/11: Seen in [facility] for ACUNA, resolved with sumatriptan -07/24/22: no headache currently, has had them more frequently over past 1-2 weeks CURRENT REG: mag ox, riboflavin, reglan, benadryl Plan [] monitor sx qV [] BP monitoring as above [] reviewed preE precautions, headache precautions Assessment & Plan (07/03/2024 10:15 AM CORNICE MAKER): Uncontrolled. Start toprol XL 50mg daily for [...] or bologna; no MSG as found in slovak food; no more than 1/2 banana a [...] headaches. Assessment & Plan (06/04/2022 10:03 AM CORNICE MAKER): History of chronic migraine that has been increase in frequency and severity over the past 2 months. Headache hygiene discussed and recommend follow-up with obgyn for monitoring of signs of pre-eclampsia. Blurry vision, bilateral 06/04/2022 Assessment & Plan (03/31/2024 11:49 AM CDT): Recurring/worsening. Repeat brain MRI. Assessment & Plan (07/02/2022 3:16 PM CORNICE MAKER): No evidence of ONH changes, no edema [...] prn Assessment & Plan (06/04/2022 10:02 AM CORNICE MAKER): Subjective blurry vision for the past 2-8 [...] on 06/25,1/3 Back pain affecting in second trimkenye r 03/27/2022 Overview (03/27/2022): Patient reports increased [...] MMR PP Supervision of high-risk , third trimdouglas ter 12/14/2021 Overview (07/31/2022): First Trimester: [x] [...] gtt at 24-28wks: 129 [x] Flu Shot (Sep-Jun): received 04/21 [x] Tdap (27-36wks): received 05/22 [x] Rhogam (if Rh neg): 3rd Trimester: [x] CBC/HIV/RPR/T&S: hgb 12.5/NR/NR [x] GBS, negative [x] GC/CT/trich (if indicated) - neg Counseling [x] Method of delivery: [facility] - 1/16/23 [x] Method of contraception: Desires BTL at time of [facility] - [place] Medicaid consents signed 06/19, partner no longer getting vasectomy [x] Method of feeding: breast, already has breast pump delivered [] Mounted Police Officer: [] Car seat Discussed [] PP Depression Counseling Attention deficit disorder 11/21/2021 Overview (07/03/2022): Previously diagnosed with bipolar disorder, anxiety, and depression. [place]u use over 1 yr ago. Follows with [facility], online psychiatry platform and dx with ADHD and taking adderall 5mg daily vs BID (prescribed BID). - seen by Psych 05/30 and stopped Adderall Assessment & Plan (03/31/2024 11:55 AM CDT): Manged by [place] psych with Adderall and wellbutrin. Assessment & [...] that she was following with psychaitry through [place], states that her psychiatrist is on sabbatical and no one in the office knows her as a patient and refuses to reifll medication. [facility] that [facility] before - will get records from [place] prior to any refils, new psych referral [...] incidentally found on MRI (late 2020) at [place] while patient was undergoing work-up for multiple sclerosis - Pt reports 1 yr hx of visual changes, lower extremity neuropathy, weakness, and loss of sensation, multiple falls - Follows with neurology and endocrinology at [place] - MRI 06/22/2021 with 3mm nonenhancing lesion [...] and repeat Monk's visual field testing w/ powder coater in 4 weeks and for repeat brain MRI pituitary w/wo contrast when able -Seen by powder coater 07/02, normal exam and visual field testing Plan: [] Repeat brain MRI pituitary w/wo contrast - ordered today, given scheduling info [] Lymphedema Therapist return visit in 2mo for refraction - patient will schedule Assessment & Plan (03/31/2024 11:49 AM CDT): Hx of pituitary microademona. Last MRI done 12/11/2022 with no significant changes from the previous one in 05/18/2022. Repeat MRI. Will check prolactin levels, LH, and cortisol. Assessment & Plan (07/02/2022 3:14 PM CORNICE MAKER): Stable eye exam, there are scattered nasal [...] monitor Assessment & Plan (06/04/2022 10:02 AM CORNICE MAKER): Brain MRI wo contrast on 05/21 showed [...] 07/24/22 EPDS 16, continues with outside provider, [facility] to contact again -07/31/22: EPDS not performed, seeing [facility] psychiatry today CURRENT REG: wellbutrin 150 mg [...] UPC 0.07 06/05: normotensive 06/11: Seen in [facility] 06/11 for ACUNA; BP normotensive 06/19: Normotensive, [...] home wellbutrin 150mg/daily. Interested in meeting with PN, will place referral today. # H/o benign [...] # Disposition: Follow up task sent to [facility] scheduling pool. Desires discharge home today. Fibromyalgia 06/04/2022 06/04/2022 Anxiety 06/04/2022 06/04/2022 Elevated blood pressure affe cting , antepartum 05/22/2022 08/21/2022 Overview (07/31/2022): S/p counseling, working diagnosis: cHTN Reports hx of borderline preeclampsia in G2, reports delivered after 39 wks Pt reports good compliance with daily ASA on 04/2409/28/20 ED - 141/84 09/21/21 ED - 140/86 12/11/21 5w3d IOB- 143/79 05/17/22 27w6d [facility] - 143/61, CBC, CMP wnl, UPC 0.1, uric acid wnl 05/22: reports worsening BLE edema, BUE edema, fascial swelling, ACUNA. Weight stable from last month. CBC/CMP wnl, UPC 0.07 06/29: normal BP, CBC, CMP wnl, UPC 0.16 07/03/22 34w4d [facility] - 148/67, CBC/CMP WNL, UPC 0.15 07/24/22: BPs normal to mild range 07/30: [facility] visit to r/o preE, normotensive, CBC/CMP WNL, [...] she is trying to walk. Seen in [facility] 05/17 and 05/28 for symptoms; SVE C/L/H, no contractions on toco, diagnosed with yeast infection 05/17 and treated with miconazole cream. R/o'ed for ROM on 05/28 US 05/23: EFW 1324g (48%), normal fluid. No mention of uterine window Plan [] strict [facility] precautions given Class 1 obesity due to [...] reports [facility] Immunizations Immunization Administration Dates Next Due Adenovirus [...] 07/05/2023 Pneumococcal Polysaccharide PPV23 06/09/2021 Tdap 05/22/2022,05/06/2014 Social History Tobacco Use Types Packs/Day Years [...] Never 07/30/2022 How often do you attend rastafari or lutheran serv ices? Never 07/30/2022 Do you belong to any clubs o r organizations such as rastafari groups, unions, fraternal or athletic groups, or [...] staff should administer the PHQ-9) 4 03/31/2024 [facility] - Occupational Stress Questionnaire Answer Date Recorded [...] money to buy more. Never true 09/04/19 Within the past 12 months, t he [...] place to sleep or slept in a correction (including now)? No 07/30/2022 [place] Depression Scale Answer Date Recorded [place] Depression Scale Total 11 09/04/2022 The thought [...] on file Legal Sex Female 4:51 PM CORNICE MAKER Gender Identity Female 11/17/2021 1:47 PM CDT Sexual Orientation Straight 12/30/2023 3: 10 AM CDT Last Filed Vital Signs Vital Sign Reading Time Taken Comments Blood Pressure 113/69 07/29/2024 5:15 AM CORNICE MAKER Pulse 90 07/29/2024 6:00 AM CORNICE MAKER Temperature 37.3 C (99.1 F) 07/29/2024 2:01 AM CORNICE MAKER Respiratory Rate 19 07/29/2024 6:00 AM CORNICE MAKER Oxygen Saturation 100% 07/29/2024 6:00 AM CORNICE MAKER Inhaled Oxygen Concentration - - Weight 51.7 kg (114 lb) 07/29/2024 2:05 AM CORNICE MAKER Height 160 cm (5' 3 ) 07/29/2024 2:05 AM CORNICE MAKER Body Mass Index 20.19 07/29/2024 2:05 AM CORNICE MAKER Plan of Treatment Not on file Procedures Procedure Name Priority Date/Time Associated Diagnosis Comments TROPONIN T HIGH-SENSITIVITY 2-HOUR Timed 07/29/2024 4:45 AM CORNICE MAKER XR CHEST 1 VIEW ED 07/29/2024 2:34 AM CORNICE MAKER ECG 12-LEAD STAT 07/29/2024 2:17 AM CORNICE MAKER EGFR STAT 07/29/2024 2:13 AM CORNICE MAKER DIFFERENTIAL AUTO STAT 07/29/2024 2:1 3 AM CORNICE MAKER TROPONIN T HIGH-SENSITIVITY SERIES (BASELINE, 2HR, 4HR, 6HR) STAT 07/29/2024 2:13 AM CORNICE MAKER COMPREHENSIVE METABOLIC PANEL STAT 07/29/2024 2:13 AM CORNICE MAKER CBC WITH AUTO DIFFERENTIAL STAT 07/29/2024 2:13 AM CORNICE MAKER CHRISTOPHER QUALITATIVE WITH REFLEX TO CHRISTOPHER QUANTITATIVE Routine 06/30/2024 8:18 PM CORNICE MAKER Thrombocytopenia (HCC) Psoriasis DIFFERENTIAL AUTO Routine 06/30/2024 6:5 6 PM CORNICE MAKER Thrombocytopenia (HCC) Psoriasis CBC WITH AUTO DIFFERENTIAL Routine 06/30/2024 6:56 PM CORNICE MAKER Thrombocytopenia (HCC) Psoriasis ERYTHROCYTE SEDIMENTATION RATE Routine 06/30/2024 6:56 PM CORNICE MAKER Thrombocytopenia (HCC) Psoriasis KARMA-1 ANTIBODY Routine 06/30/2024 6:54 PM CORNICE MAKER Thrombocytopenia (HCC) Psoriasis HEMOCHROMATOSIS HFE GENE ANALYSIS Routine 06/30/2024 6:54 PM CORNICE MAKER Thrombocytopenia (HCC) Psoriasis ANTIHISTONE ANTIBODIES Routine 6:54 PM CORNICE MAKER Thrombocytopenia (HCC) Psoriasis CRP (ACUTE PHASE) Routine 06/30/2024 6:5 2 PM CORNICE MAKER Thrombocytopenia (HCC) Psoriasis RHEUMATOID FACTOR Routine 06/30/2024 6:5 2 PM CORNICE MAKER Thrombocytopenia (HCC) Psoriasis IRON PROFILE W/ IBC Routine 06/30/2024 6 :52 PM CORNICE MAKER Thrombocytopenia (HCC) Psoriasis FERRITIN Routine 06/30/2024 6:52 PM CORNICE MAKER Thrombocytopenia (HCC) Psoriasis FOLATE Routine 06/30/2024 6:52 PM CORNICE MAKER Thrombocytopenia (HCC) Psoriasis VITAMIN B12 Routine 06/30/2024 6:52 PM CORNICE MAKER Thrombocytopenia (HCC) Psoriasis HLA DISEASE ASSOCIATION B 27 Routine 06/30/2024 6:50 PM CORNICE MAKER HEPATITIS C ANTIBODY Routine 12/11/2021 11:23 AM CDT , unspecified gestational age from Last 3 Months or Most Recently Relevant to Health Maintenance Results * Troponin T high-sensitivity 2-hour (07/29/2024 4:45 AM CORNICE MAKER) Trop T hs <6 <=14 ng/L Comment: Interpretive Data For further hscTnT resources including the diagnostic algorithm and an aid in interpretation, copy and paste this link: https://nrl.testcatalog.org/show/hsTrop Current Interpretive Data last revised 2020. Trop T hs delta 0 ng/L [facility] ([facility]) Trop T hs interp Insignificant [facility] ([facility]AN) Blood 07/29/2024 4:45 AM CORNICE MAKER 07/29/2024 4:51 AM CORNICE MAKER us Janae Moran MD LAB BLOOD ORDERABLES Final Resul t [facility] ([facility]AN) 1 [facility] Department [place] [address] * XR Chest 1 Vw Portable (if patient condition/safety warrant portable) (07/29/2024 2:34 AM CORNICE MAKER) Anatomical Region Laterality Modality Body, Chest N/A Computed Radiogr aphy 07/29/2024 3:20 AM CORNICE MAKER Narrative 07/29/2024 3:20 AM CORNICE MAKER EXAM DESCRIPTION: XR CHEST 1 VIEW REASON [...] by María Al M.D. SN: Report ID: [id number] Reading Location: [id number] Procedure Note María Al MD - 07/29/2024 [...] Electronically signed by María Al M.D. SN: SN Report ID: [id number] Reading Location: [id number] Janae Moran MD IMG XR PROCEDURES Final Result * ECG 12 lead (07/29/2024 2:17 AM CORNICE MAKER) 07/29/2024 2:17 AM CORNICE MAKER Narrative [facility] - 07/29/2024 6:57 AM CORNICE MAKER Vent Rate: 105 bpm RR Interval: 570 msec NM Interval: 124 msec QRS Duration: 115 msec QT Interval: 339 msec QTC Interval: 400 msec P-R-T [place]: 73 - 57 - 40 degrees IMPRESSION: SINUS TACHYCARDIA INCOMPLETE RIGHT BUNDLE BRANCH BLOCK [90+ ms QRS DURATION, TERMINAL R IN V1/V2, 40+ ms S IN I/aVL/V4/V5/V6] ABNORMAL RHYTHM ECG NO CHANGE FROM PREVIOUS TRACING NOTED Electronically Signed By: Víctor Matson MD Janae Moran MD ECG ORDERABLES Final Result [facility] * Troponin T high-sensitivity series (baseline, 2hr, 4hr, 6hr) (07/29/2024 2:13 AM CORNICE MAKER) Trop T hs <6 <=14 ng/L Comment: Interpretive Data For further hscTnT resources including the diagnostic algorithm and an aid in interpretation, copy and paste this link: https://nrl.testcatalog.org/show/hsTrop Current Interpretive Data last revised 2020. Blood 07/29/2024 2:13 AM CORNICE MAKER 07/29/2024 2:22 AM CORNICE MAKER Janae Moran MD LAB BLOOD ORDERABLES Final Resul t [facility] ([place]) 1 [facility] [place] [address] * eGFR (07/29/2024 2:13 AM CORNICE MAKER) eGFR >90 >=60 mL/min/1. 73 m2 Comment: [...] last reviewed 2021. Blood 07/29/2024 2:13 AM CORNICE MAKER 07/29/2024 2:22 AM CORNICE MAKER us Janae Moran MD LAB BLOOD ORDERABLES Final Resul t [facility] ([place]) 1 [facility] [place] [address] * Differential, auto (07/29/2024 2:13 AM CORNICE MAKER) Neutrophil abs 4.1 1.5 - 6.5 K/cumm [...] revised on 2017. Blood 07/29/2024 2:13 AM CORNICE MAKER 07/29/2024 2:22 AM CORNICE MAKER us Janae Moran MD LAB BLOOD ORDERABLES Final Resul t [facility] ([facility]) 1 [facility] [place] [address] * (ABNORMAL) CBC with auto differential (07/29/2024 2:13 AM CORNICE MAKER) Pathologist [facility] WBC 6.7 3.8 - 9.9 K/cumm Hgb [...] (JEAN) Blood (Blood, Venous) 07/29/2024 2:13 AM CORNICE MAKER 07/29/2024 2:22 AM CORNICE MAKER us Janae Moran MD LAB BLOOD ORDERABLES Final Resul t [facility] ([place]) 1 [facility] [place] [address] * (ABNORMAL) Comprehensive metabolic panel (07/29/2024 2:13 AM CORNICE MAKER) Pathologist [facility] Sodium 137 135 - 145 mmol/L Potassium, [...] classification and Diagnosis of Diabetes Diabetes Care 2021; 46: S19-S40. Current interpretive data was last [...] (JEAN) AST 16 10 - 45 Units/L [facility] ([facility]) Blood 07/29/2024 2:13 AM CORNICE MAKER 07/29/2024 2:22 AM CORNICE MAKER us Janae Moran MD LAB BLOOD ORDERABLES Final Resul t [facility] ([place]) 1 [facility] Department [place] [address] * CHRISTOPHER ab ql w/rflx to CHRISTOPHER qn (06/30/2024 8:18 PM CORNICE MAKER) CHRISTOPHER Negative Comment: Interpretive Data Normal range [...] last revised on 2020. Testing performed by: [facility], [address] [place]., [address] Blood 06/30/2024 8:18 PM CORNICE MAKER 06/30/2024 11:29 PM CORNICE MAKER us Yimi Wasserman DATA COMMUNICATIONS ANALYST LAB BLOOD ORDERABLES Final Re sult [facility] [address] Department [place] [address] * Differential, auto (06/30/2024 6:56 PM CORNICE MAKER) Neutrophil abs 3.4 1.5 - 6.5 K/cumm Imm gran abs 0.0 0.0 - 0.1 K/cumm [facility] Lymphocyte abs 1.5 0.8 - 3.3 K/cumm [facility] Monocyte abs 0.3 0.2 - 0.8 K/cumm [facility] Eosinophil abs 0.2 0.0 - 0.5 K/cumm [facility] Basophil abs 0.0 0.0 - 0.1 K/cumm [facility] Neutrophil pct 62.9 % [facility] Comment: Interpretive Data Percent cell count reference ranges are not reported, since discordance with absolute values may lead to misinterpretation of CBC data. Current Interpretive Data was last revised on 2017. Imm gran pct 0.2 % [facility] Comment: Interpretive Data Percent cell count reference ranges are not reported, since discordance with absolute values may lead to misinterpretation of CBC data. Current Interpretive Data was last revised on 2017. Lymphocyte pct 26.9 % [facility] Comment: Interpretive Data Percent cell count reference ranges are not reported, since discordance with absolute values may lead to misinterpretation of CBC data. Current Interpretive Data was last revised on 2017. Monocyte pct 6.0 % [facility] Comment: Interpretive Data Percent cell count reference ranges are not reported, since discordance with absolute values may lead to misinterpretation of CBC data. Current Interpretive Data was last revised on 2017. Eosinophil pct 3.5 % [facility] Comment: Interpretive Data Percent cell count reference ranges are not reported, since discordance with absolute values may lead to misinterpretation of CBC data. Current Interpretive Data was last revised on 2017. Basophil pct 0.5 % [facility] Comment: Interpretive Data Percent cell count reference ranges are not reported, since discordance with absolute values may lead to misinterpretation of CBC data. Current Interpretive Data was last revised on 2017. Blood 06/30/2024 6:56 PM CORNICE MAKER 06/30/2024 6:56 PM CORNICE MAKER us Yimi Wasserman DATA COMMUNICATIONS ANALYST LAB BLOOD ORDERABLES Final Re sult [facility] [address] Department [place] [address] * (ABNORMAL) CBC with auto differential (06/30/2024 6:56 PM CORNICE MAKER) WBC 5.5 3.8 - 9.9 K/cumm Hgb 11.6(L) 11.9 - 15.5 g/dL [facility] Hct 36.5 35.6 - 45.5 % [facility] Plt 410(H) 150 - 400 K/cumm [facility] MPV 9.8 9.1 - 12.3 fL [facility] RBC 4.01 3.90 - 5.20 M/cumm [facility] MCV 91.0 81.3 - 96.4 fL [facility] MCH 28.9 27.1 - 33.3 pg [facility] MCHC 31.8(L) 32.3 - 35.7 g/dL [facility] RDW CV 13.3 11.1 - 14.9 % [facility] RDW SD 44.0 35.7 - 48.1 fL [facility] NRBC abs 0.00 0.00 - 0.01 K/cumm [facility] Blood 06/30/2024 6:56 PM CORNICE MAKER 06/30/2024 6:56 PM CORNICE MAKER Yimi Wasserman DATA COMMUNICATIONS ANALYST LAB BLOOD ORDERABLES Final Re sult Performing Organization Address [facility]/ZIP Co de Phone Number [facility] [address] [facility] [place] [address] * Erythrocyte sedimentation rate (06/30/2024 6:56 PM CORNICE MAKER) Erythrocyte sedimentation rate 10 1 - 20 mm/hr Blood 06/30/2024 6:56 PM CORNICE MAKER 06/30/2024 6:56 PM CORNICE MAKER us Yimi Wasserman DATA COMMUNICATIONS ANALYST LAB BLOOD ORDERABLES Final Re sult Performing Organization Address [facility] Co de Phone Number [facility] [address] [place] [address] * Karma-1 antibody (06/30/2024 6:54 PM CORNICE MAKER) Karma 1 Antibody, IgG <0.2 <=0.9 Ab Index Comment: Interpretive Data Negative: < 1.0 Ab Index Positive: > or = 1.0 Ab Index Current interpretive data was last revised on 2016. Testing performed by: [facility], [address] [facility] [address] Blood 06/30/2024 6:54 PM CORNICE MAKER 06/30/2024 9:45 PM CORNICE MAKER us Yimi Wasserman DATA COMMUNICATIONS ANALYST LAB BLOOD ORDERABLES Final Re sult Performing Organization Address City/[facility]/ZIP Co de Phone Number [facility] [address] Department [place] [address] * Antihistone antibodies (06/30/2024 6:54 PM CORNICE MAKER) Antihistone TNP [facility] Comment: TEST NOT PERFORMED. Quantity not sufficient. Test Performed at: [facility] [address] [place] [address] DELFIN WILSON Blood 06/30/2024 6:54 PM CORNICE MAKER 06/30/2024 6:54 PM CORNICE MAKER us Yimi Wasserman DATA COMMUNICATIONS ANALYST LAB BLOOD ORDERABLES Final Re sult [facility] [address] Department [place] [address] [facility] * Hemochromatosis HFE Gene Analysis (06/30/2024 6:54 PM CORNICE MAKER) Pathologist [facility] HFE Genotype H63D Heterozygous [facility] Comment:Testing performed by : [facility], [address] [place]., [address] HFE p.C282Y Negative [facility] Comment:Testing performed by : [facility], [address] [place]., [address] HFE p.H63D Heterozygous [facility] Comment:Testing performed by : [facility], [address] [place]., [address] HFE Interpretation This genotype is associated with [...] of the clinical implications of this result. [facility] Comment:Testing performed by : [facility], [address] [place]., [address] HFE Specimen Whole Blood [facility] Comment:Testing performed by : [facility], [address] [place]., [address] HFE Result Review KAYLAN Bueno, EDMUNDO([facility])Arleth CATHERINE([facility])CM Gl Accountant, on 07/03/2024 11:47:05 CORNICE MAKER. [facility] Comment: Interpretive Data Method: This assay detects the two variants in the HFE gene, p.C282Y (NM_000410.2: c.845G>A) and p.H63D (NM_000410.2: c.187C>G), that are commonly associated with HH. The variants are detected by a multiplex PCR based assay performed on the [employer] 7500 Fast Dx Real-Time PCR instrument. Limitations: Bone [...] determined by the Molecular Diagnostics Laboratory at [facility] in a manner consistent with CLIA requirements. This test has not been cleared or approved by the U.S. Food and Drug Administration. References: Trent KJ, Chad WALKER, Sen CC, et al. Dljv-vkaprysa-jsnadkf disease in HFE hereditary hemochromatosis. N Engl J Med. 2008;358:221 3 0. Jose Maria BR, Urbano PC, Surya KV, et al. Diagnosis and management of hemochromatosis: 2011 practice guideline by the [place] [employer] for the Study of Liver Diseases. Hepatology. 2011;54:328 4 3. Ramiro DEVIN, Monroy CQ, Timothy RT. HFE gene: structure, function, mutations, and associated iron abnormalities. Gene. 2015;574:179 9 2. Asim ZJ, Lyle GONZALES, Raeann LB, et al. Clinical and biochemical abnormalities in people heterozygous for hemochromatosis. N Engl J Med. 1996;335:1799 8 05. Dora PA, Ahmet BOONE, Gabe DJ, Dom Li D, Whitney E, Coretta DelgadilloK. A population- based study of the biochemical and clinical expression of the H63D hemochromatosis mutation. Gastroenterology. 2002;122:646 5 1. Chad WALKER, Bryanna NA, Hank RAGLAND, et al. HFE C282Y/H63D compound heterozygotes are at low risk of hemochromatosis-related morbidity. Hepatology. 2009;50:94 1 01. Hiram EH, Jean-Claude G, Nahdi W. HFE gene and hereditary hemochromatosis: a HuGE review. Human Genome Epidemiology. Am J Epidemiol. 2001 Aug ; 154(3):193-206. Levi A, Racielo C, Byron L, et al. Two novel nonsense mutations of HFE gene in five unrelated [place] patients with hemochromatosis. Gastroenterology. 2000;119:441 5 . Sky EP, Rupali BA, Guerra EL, et al. Screening for hereditary hemochromatosis: a systematic review for the [place]. Preventive Services Task Force. Anna Streetcar Repairer Med. 2006;145:209 2 3. This test was performed at: [facility], [facility] DEAN Owens#[id number], Anna Bryant, Ph.D., [place], [address], [place] Current interpretive data was last revised 2021. Testing performed by: [facility], [address] [facility], [place]., [address] Blood 06/30/2024 6:54 PM CORNICE MAKER 06/30/2024 10:18 PM CORNICE MAKER Yimi Wasserman DATA COMMUNICATIONS ANALYST LAB GENETIC TESTING Final Res ult Performing Organization Address [facility]/ZIP Co de Phone Number [facility] [address] Department [facility] [place], [place] [id number] BJ * (ABNORMAL) Iron profile w/ IBC (06/30/2024 6:52 PM CORNICE MAKER) Pathologist [facility] Iron 41 35 - 145 mcg/dL TIBC 281 250 - 400 mcg/dL [facility] Transferrin saturation 15(L) 20 - 50 % [facility] Blood 06/30/2024 6:52 PM CORNICE MAKER 06/30/2024 6:52 PM CORNICE MAKER Yimi Wasserman DATA COMMUNICATIONS ANALYST LAB BLOOD ORDERABLES Final Re sult Performing Organization Address [facility] Co de Phone Number [facility] [address] Department [place] [place], [place] [id number] * Rheumatoid factor (06/30/2024 6:52 PM CORNICE MAKER) Rheumatoid factor, quant <10 <=15 IUnits/mL Blood 06/30/2024 6:52 PM CORNICE MAKER 06/30/2024 6:52 PM CORNICE MAKER Yimi Wasserman DATA COMMUNICATIONS ANALYST LAB BLOOD ORDERABLES Final Re sult Performing Organization Address [facility] Co de Phone Number [facility] [address] Department [place] [place], [place] [id number] * CRP (acute phase) (06/30/2024 6:52 PM CORNICE MAKER) CRP <3.0 <=10.0 mg/L Blood 06/30/2024 6:52 PM CORNICE MAKER 06/30/2024 6:52 PM CORNICE MAKER us Yimi Wasserman DATA COMMUNICATIONS ANALYST LAB BLOOD ORDERABLES Final Re sult Performing Organization Address [facility] Co de Phone Number [facility] [address] [place] [address] * Folate (06/30/2024 6:52 PM CORNICE MAKER) Folic acid 15.6 >=5.0 ng/mL Blood 06/30/2024 6:52 PM CORNICE MAKER 06/30/2024 6:52 PM CORNICE MAKER us Yimi Wasserman DATA COMMUNICATIONS ANALYST LAB BLOOD ORDERABLES Final Re sult Performing Organization Address [facility] de Phone Number [facility] [address] [place] [address] * Ferritin (06/30/2024 6:52 PM CORNICE MAKER) Ferritin 21 15 - 150 ng/mL Blood 06/30/2024 6:52 PM CORNICE MAKER 06/30/2024 6:52 PM CORNICE MAKER us Yimi Wasserman DATA COMMUNICATIONS ANALYST LAB BLOOD ORDERABLES Final Re sult Performing Organization Address [facility] de Phone Number [facility] [address] [place] [address] * Vitamin B12 (06/30/2024 6:52 PM CORNICE MAKER) Vitamin B12 1,017 230 - 1,250 pg/mL Blood 06/30/2024 6:52 PM CORNICE MAKER 06/30/2024 6:52 PM CORNICE MAKER us Yimi Wasserman DATA COMMUNICATIONS ANALYST LAB BLOOD ORDERABLES Final Re sult Performing Organization Address [facility] Co de Phone Number [facility] [address] [facility] [place] [address] * HLA disease association B 27 (06/30/2024 6:50 PM CORNICE MAKER) HLA-B27 interp HLA-B*27 is Negative. HISTOTRAC 06/30/2024 6:50 PM CORNICE MAKER 07/06/2024 9:54 AM CORNICE MAKER Narrative HISTOTRAC - 07/06/2024 9:54 AM CORNICE MAKER HLA-B typing is performed using the reverse sequence specific oligonucleotide (r-SSO) method, which is based on an FDA approved IVD kit and validated by the [facility] HLA laboratory. Interpretive comments: HLA-B*27 positivity confers [...] J Med 2016;374:2563-74) Testing performed at the [facility], [facility], 5th floor, [place], [address]. [facility] # [id number]. Merced Yanez, Ph.D., Decorating Machine Tender, HLA Laboratory Rupert Alvarez M.D., Ph.D., Hoof Trimmer, HLA Laboratory Anna Bryant, Ph.D., CLIA Hoof Trimmer, [facility] Clinical Laboratories Current methodology and interpretive comments were last revised on 02/11/2017 us Notinfile Unknown LAB BLOOD ORDERABLES Final Res ult HISTOTRAC * Hepatitis C antibody (12/11/2021 11:23 AM CDT) Hep C Ab Nonreactive Nonreactive [facility]ERN[facility] Comment:Antibodies to HCV no t detected. Does NOT exclude the possibility of recent exposure to HCV. Blood 12/11/2021 11:2 3 AM CDT 12/11/2021 11:55 AM CDT Jessie Oseguera MD LAB MICROBIOLOGY - GEN ERAL ORDERABLES Edited Result - Final [facility] [place] [address] from Last 3 Months or Most Recently Relevant to Health Maintenance Insurance [facility] Advance Directives For more information, please contact: [phone] * Full Code (Latest Code Status on File) Date Activated Date Inactivated Comments 08/06/2022 11:52 AM 08/08/2022 3:16 PM * Full Code Date Activated Date Inactivated Comments 08/06/2022 7:45 AM 08/06/2022 11:52 AM Full CPR in case of cardiopulmonary arrest Care Teams Radiology Receptionist Relationship Specialty Start Date End Date Yimi Wasserman NP [address] [facility] [place] [address] [place] [address] PCP - General Family Medicine 03/31/24 Petra Fabian MD [address] [facility] [place] [address] [place] [address] Resident Obstetrics and Gynecology 06/04/22
--- OUTSIDE RECORDS SUMMARY | 2024-09-16 18:44 | XMS_ITS | Encounter Summary ---
Author Organization [employer] Address [address] [facility] [address] [facility] [place] [address] Care Team Providers Care Tipple Supervisor Name Role Phone Winston Russell MD Primary Care Provider [phone] Encounter Details Date Type Department Care Team (Late st Contact Info) Description 07/30/2024 [facility] URGENT CARE [address] [place] [address] Royer Ansari DC [address] [place] [address] Chronic right-sided low back pain with right-sided sciatica (Primary Dx) Social History Tobacco Use Types Packs/Day Years Used Date Smoking Tobacco: Never Assessed Comments Unknown Sex and Gender Information Value Date Recorded Sex Assigned at Not on file Legal Sex Female 12:36 PM CDT Gender Identity Not on file Sexual Orientation Not on file documented as of this encounter Plan of Treatment Not on file documented as of this encounter Visit Diagnoses Diagnosis Chronic right-sided low back pain with right-sided sciatica- Primary documented in this encounter Care Teams Tipple Supervisor Relationship Specialty Start Date End Date Winston Russell MD [address] [place] [address] [address], [place] [address] PCP - General Family Practice 11/21/22 documented as of this encounter
--- OUTSIDE RECORDS SUMMARY | 2024-09-16 18:44 | XMS_ITS | Clinical Summary ---
Author Organization [facility] Address [address] [place] [address] Care Team Providers Care Land Surveying Manager Name Role Phone Winston Russell MD Primary Care Provider [phone] Medications acetaminophen (TYLENOL) 500 mg Capsule Take 1,000 mg by mouth. 3 Active buPROPion HCL (WELLBUTRIN XL) 300 mg Extended Release 24 hour tablet Take 300 mg by mouth daily. 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 Weight stable from last month. CBC/CMP wnl, UPC 0.07 06/05: normotensive 06/11: Seen in [facility] 06/11 for ACUNA; BP normotensive 06/19: Normotensive, BPs at home also normotensive. No current ACUNA, RUQ pain, vision changes. 07/24/22: Normotensive, asx Plan: - BP check at visits Depression 11/21/2022 Overview (11/21/2022): - PPD, was hospitalized after delivery in [...] 07/24/22 EPDS 16, continues with outside provider, PNS to contact again -07/31/22: EPDS not performed, seeing psychiatry today CURRENT REG: wellbutrin 150 mg daily [] Assess mood, EPDS qV [] Sees outside psych provider monthly Pituitary tumor 11/21/2022 Overview (11/21/2022): - Pt reports incidentally found on MRI (late 2020) at [place] while patient was undergoing work-up for multiple sclerosis - Pt reports 1 yr hx of visual changes, lower extremity neuropathy, weakness, and loss of sensation, multiple falls - Follows with neurology and endocrinology at [place] - MRI 06/22/2021 with 3mm nonenhancing lesion in the pituitary on the right c/w microadenoma (page 11 in media tab), page 65 (endo/neuro recs: pituitary MRI/prolactin). - Brain MRI on 05/21 that did not even demonstrate the known pituitary adenoma 2/2 lack of contrast. - Seen by Dr. Jaramillo (neuro- ophtho) on 06/04 - Monk visual field testing grossly normal, no findings on eye exam to explain c/o blurry vision or reduced visual haley. Recommended artifical tears and repeat Monk's visual field testing w/ service learning coordinator in 4 weeks and for repeat brain MRI pituitary w/wo contrast when able -Seen by service learning coordinator 07/02, normal exam and visual field testing Plan: [] Repeat brain MRI pituitary w/wo contrast - ordered today, given scheduling info [] Parliamentary Librarian return visit in 2mo for refraction - patient will schedule Last Assessment & Plan: Stable eye exam, there are scattered nasal Monk visual field (HVF) defects, but unreliable and not concerning as pituitary adenoma would cause bitemporal defects. The vision is good with pinhole, and patient would benefit from updated Rx after . There are no abnormalities or changes noted with either ONH, confirmed with OCT. Educated on all exam findings and will monitor Dry eye syndrome of both lacrimal glands 022 Overview (11/21/2022): Last Assessment & Plan: Recommended ATs PRN both eyes (OU) due to reduced TBUT Migraines 06/04/2022 Overview (11/21/2022): Reports migraines occurring 1-2 times per month pre reg, now 3-4 times per week. Frontal pain a/w photophobia, blurry vsion. Duration of the headaches is 1-2 days. No medication helps. The characteristics are variable, described as sharp, dull, pulsatile in quality, and 4-8/10 in severity. - 06/05: ACUNA improved today, continue below regimen -06/11: Seen in [facility] for ACUNA, resolved with sumatriptan -07/24/22: no headache currently, has had them more frequently over past 1-2 weeks CURRENT REG: mag ox, riboflavin, reglan, benadryl Plan [] monitor sx qV [] BP monitoring as above [] reviewed preE precautions, headache precautions Last Assessment & Plan: History of chronic migraine that has been increase in frequency and severity over the past 2 months. Headache hygiene discussed and recommend follow-up with obgyn for monitoring of signs of pre-eclampsia. Blurry vision, bilateral 06/04/2022 Overview (11/21/2022): Last Assessment & Plan: No evidence of ONH changes, no edema [...] 2 mo for refraction or sooner prn Maternal obesity, antepartum 05/23/2022 Overview (11/21/2022): Pre preg BMI 30 Plan [x] Early GTT [x] Specialized anatomy ultrasound [x] Serial growth ultrasounds q4 weeks starting at 24 weeks: AGA on 06/25,1/3 Back pain affecting in second trimeste r 03/27/2022 Overview (11/21/2022): Patient reports increased severity and frequency of neck, back and hip pain. Reports no relief with APAP and behavioral modifications (yoga, stretching). On physical exam, paraspinous muscles are soft, minimal SI joint tenderness. Patient amenable to trying conservative measures. 03/27: Placed referral to pelvic PT. Supervision of high-risk , third trimes ter 12/14/2021 Overview (11/21/2022): First Trimester: [x] Dating Criteria: L=1 [x] [...] 12.5, RPR NR [x] 1hr gtt at 24- 28wks: 129 [x] Flu Shot (Mar-Jun): received 04/21 [x] Tdap (27-36wks): received 05/22 [x] Rhogam (if Rh neg): 3rd Trimester: [x] CBC/HIV/RPR/T&S: hgb 12.5/NR/NR [x] GBS, negative [x] GC/CT/trich (if indicated) - neg Counseling [x] Method of delivery: [facility] - 08/06/22 [x] Method of contraception: Desires BTL at time of [facility] Medicaid consents signed 06/19, partner no longer getting vasectomy [x] Method of feeding: breast, already has breast pump delivered [] Pump House Engineer: [] Car seat Discussed [] PP Depression Counseling Attention deficit disorder 11/21/2021 Overview (11/21/2022): Previously diagnosed with bipolar disorder, anxiety, and depression. Gleason use over 1 yr ago. Follows with [facility], online psychiatry platform and dx with ADHD and taking adderall 5mg daily vs BID (prescribed BID). - seen by Psych 05/30 and stopped Adderall Last Assessment & Plan: Following with psychaitry Continue aderral 10 mg bid, wellbutrin 150 mg every day as per psychaitry Encounters Date Type Department Care Team Description 07/30/2024 [facility] URGENT CARE [address] [facility] 4TH [place] [phone] Royer Ansari, [place] Chronic right-sided low back pain with right-sided sciatica (Primary Dx) from Last 3 Months Social History Tobacco Use Types Packs/Day Years Used Date Smoking Tobacco: Never Assessed Comments Unknown Sex and Gender Information Value Date Recorded Sex Assigned at Not on file Legal Sex Female 12:36 PM CDT Gender Identity Not on file Sexual Orientation Not on file Last Filed Vital Signs Vital Sign Reading Time Taken Comments Blood Pressure 120/68 11/21/2022 2:41 PM CDT Pulse 82 11/21/2022 2:41 PM CDT Temperature - - Respiratory Rate - - Oxygen Saturation - - Inhaled Oxygen Concentration - - Weight 79.4 kg (175 lb) 11/21/2022 2:39 PM CDT Height 158.8 cm (5' 2.5 ) 11/21/2022 2:39 PM CDT Body Mass Index 31.5 11/21/2022 2:39 PM CDT Plan of Treatment Health Maintenance Due Date Last Done Comments HEPATITIS B VACCINES (2 of 3 - 3-dose series) 06/03/2014 05/06/2014 CERVICAL CANCER SCREENING 11/01/2016 HPV VACCINES (3 - 3-dose series) 10/12/2021 06/09/20 21, 04/14/2021 INFLUENZA VACCINE (#1) 2024 2, 04/14/2021, 05/06/2014 DTAP/TDAP/TD VACCINES (3 - T d or Tdap) 05/22/2032 05/22/2022, 05/06/2014 Insurance [employer] [facility] MEDICAID Care Teams Land Surveying Manager Relationship Specialty Start Date End Date Winston Russell MD [address] [place] [phone] PCP - General Family Practice 11/21/22
--- OUTSIDE RECORDS SUMMARY | 2024-09-16 18:44 | XMS_ITS | Continuity of Care Document ---
Author Organization [facility] Address [address] [place] [address] Phone Care Team Providers Care Home Care Consultant Name Role Phone Unavailable Unavailable Unavailable Advance Directives Directive Yes / No Effective Date File Name No Information Encounters Encounter Description Practice Location Reason(s) For Visit Diagnoses Date Provider Providers Copied on Encounter [facility], [address], [place], [place], [id number], [place] tel:[phone] [facility] No Information 0 No Information Family History Family Member Type Diagnosis Age At Onset No Information Payers Payer name Insurance type Covered democrat ID Authoriza tion(s) [facility] [id number] Social History Type Description Quantity Date Captured Comments Sex Female Smoking Status No Information Chief Complaint And Reason For Visit No Information History Of Present Illness Encounter Date Complaint History Of Prese nt Illness No Information Instructions Date Instruction Additional Infor mation No Information Assessments Type Assessment Date No Information
--- NOTE | 2024-09-16 21:31 | PC.NURSE ---
no answer in waiting room for vital signs and repeat labs
--- NOTE | 2024-09-16 22:31 | PC.NURSE ---
no nswer at triage
--- OUTSIDE RECORDS SUMMARY | 2024-09-16 22:34 | XMS_ITS | Clinical Summary ---
Author Organization [facility] Address [address] [address] Phone Care Team Providers Care Automotive Repair Technician Name Role Phone Unavailable Primary Care Provider Unavailabl e Immunizations Immunization Administration Dates Next Due Influenza Vaccine, Quadrivalent, PF 04/21/2022 MMR Vaccine 08/08/2022 TDAP Vaccine 05/22/2022 Social History Tobacco Use Types Packs/Day Years Used Date Smoking Tobacco: Never Assessed Comments Unknown Sex and Gender Information Value Date Recorded Sex Assigned at Not on file Legal Sex Female 10:00 PM SIGNAL INSPECTOR Gender Identity Not on file Sexual Orientation Not on file Plan of Treatment Health Maintenance Due Date Last Done Comments Hepatitis C Virus (HCV) Screening 1995 Hepatitis B Immunization (1 of 3 - 19+ 3-dose series) 11/01/2014 Pap Smear 11/01/2016 Influenza Immunization (#1) 2024 04/21/2022 SARS-COV-2 Immunization ( season) 2024 Respiratory Syncytial Virus (RSV) Immunization (Adult) (1 - 1-dose 75+ series) 11/01/2070 DTaP/Tdap/Td Immunization Discontinued 05/22/2022 Meningococcal Immunization (ACWY) Aged Out No longer eligible based on patient's age to complete this topic Pneumococcal Immunization Combined Aged Out No longer eligible b ased on patient's age to complete this topic Rotavirus Immunization Aged Out No lo nger eligible based on patient's age to complete this topic Insurance MEDICAID [employer]ETNA [facility]
--- OUTSIDE RECORDS SUMMARY | 2024-09-16 22:34 | XMS_ITS | Encounter Summary ---
Author Organization [employer] Address [address] [facility] [place] [address] Care Team Providers Care Salesperson New Cars Name Role Phone Winston Russell MD Primary Care Provider [phone] Encounter Details Date Type Department Care Team (Late st Contact Info) Description 07/30/2024 [facility] URGENT CARE [address] [place] [address] Royer Ansari [place] [address] [place] [address] Chronic right-sided low back pain [...] Primary documented in this encounter Care Teams Salesperson New Cars Relationship Specialty Start Date End Date Winston Russell MD [address] [place] [address] [address] PCP - General Family Practice 11/21/22 documented as of this encounter
--- OUTSIDE RECORDS SUMMARY | 2024-09-16 22:34 | XMS_ITS | Clinical Summary ---
Author Organization [facility] Address [address] [place] [id number] Care Team Providers Care Etcher Apprentice Photoengraving Name Role Phone Petra Fabian MD Unavailable Yimi Wasserman NP Primary Care Provider [phone] Allergies Active Allergy Reactions Criticality Noted Date [...] 07/02/2024 Assessment & Plan (07/03/2024 10:15 AM TEST EXAMINER): New Chronic condition. Reviewed holter monitor report and echo. Start Toprol 50mg every 24 hours. Consider cupola patcher referral. Thrombocytopenia 07/02/2024 Assessment & Plan (07/02/2024 4:52 PM TEST EXAMINER): Improving. Ordered and reviewed CBC- platelets are coming down. Continue aspirin 81mg daily. Acute otitis externa of left ear 07/02/2024 Assessment & Plan (07/02/2024 4:53 PM TEST EXAMINER): New. Start Ciprodex otic. Use ear drops [...] 07/02/2024 Assessment & Plan (07/03/2024 10:16 AM TEST EXAMINER): Chronic and stable. Start Hydrocortisone cream as [...] 022 Assessment & Plan (07/02/2022 3:14 PM TEST EXAMINER): Recommended ATs PRN both eyes (OU) due [...] today, continue below regimen -06/11: Seen in [facility] for ACUNA, resolved with sumatriptan -07/24/22: no headache currently, has had them more frequently over past 1-2 weeks CURRENT REG: mag ox, riboflavin, reglan, benadryl Plan [] monitor sx qV [] BP monitoring as above [] reviewed preE precautions, headache precautions Assessment & Plan (07/03/2024 10:15 AM TEST EXAMINER): Uncontrolled. Start toprol XL 50mg daily for [...] or bologna; no MSG as found in Tattva food; no more than 1/2 banana a [...] headaches. Assessment & Plan (06/04/2022 10:03 AM TEST EXAMINER): History of chronic migraine that has been increase in frequency and severity over the past 2 months. Headache hygiene discussed and recommend follow-up with obgyn for monitoring of signs of pre-eclampsia. Blurry vision, bilateral 06/04/2022 Assessment & Plan (03/31/2024 11:49 AM CDT): Recurring/worsening. Repeat brain MRI. Assessment & Plan (07/02/2022 3:16 PM TEST EXAMINER): No evidence of ONH changes, no edema [...] prn Assessment & Plan (06/04/2022 10:02 AM TEST EXAMINER): Subjective blurry vision for the past 2-8 [...] - neg Counseling [x] Method of delivery: [facility] - 08/06/22 [x] Method of contraception: Desires BTL at time of [facility] - [place] Medicaid consents signed 06/19, partner no longer getting vasectomy [x] Method of feeding: breast, already has breast pump delivered [] Kinesiology Professor: [] Car seat Discussed [] PP Depression Counseling Attention deficit disorder 11/21/2021 Overview (07/03/2022): Previously diagnosed with bipolar disorder, anxiety, and depression. [place] use over 1 yr ago. Follows with [facility], online psychiatry platform and dx with ADHD and taking adderall 5mg daily vs BID (prescribed BID). - seen by Psych 05/30 and stopped Adderall Assessment & Plan (03/31/2024 11:55 AM CDT): Manged by [facility] psych with Adderall and wellbutrin. Assessment & [...] that she was following with psychaitry through [facility], states that her psychiatrist is on sabbatical and no one in the office knows her as a patient and refuses to reifll medication. [facility] - will get records from [facility] prior to any refils, new psych referral [...] incidentally found on MRI (late 2020) at [facility] while patient was undergoing work-up for multiple sclerosis - Pt reports 1 yr hx of visual changes, lower extremity neuropathy, weakness, and loss of sensation, multiple falls - Follows with neurology and endocrinology at [facility] - MRI 06/22/2021 with 3mm nonenhancing lesion [...] and repeat Monk's visual field testing w/ instrument maker apprentice in 4 weeks and for repeat brain MRI pituitary w/wo contrast when able -Seen by instrument maker apprentice 07/02, normal exam and visual field testing Plan: [] Repeat brain MRI pituitary w/wo contrast - ordered today, given scheduling info [] Glass Deposition Tender return visit in 2mo for refraction - patient will schedule Assessment & Plan (03/31/2024 11:49 AM CDT): Hx of pituitary microademona. Last MRI done 12/11/2022 with no significant changes from the previous one in 05/18/2022. Repeat MRI. Will check prolactin levels, LH, and cortisol. Assessment & Plan (07/02/2022 3:14 PM TEST EXAMINER): Stable eye exam, there are scattered nasal [...] monitor Assessment & Plan (06/04/2022 10:02 AM TEST EXAMINER): Brain MRI wo contrast on 05/21 showed [...] UPC 0.07 06/05: normotensive 06/11: Seen in [facility] 06/11 for ACUNA; BP normotensive 06/19: Normotensive, BPs at home also normotensive. No current ACUAN, RUQ pain, vision changes. 07/24/22: Normotensive, asx [...] home wellbutrin 150mg/daily. Interested in meeting with [facility], will place referral today. # H/o benign [...] # Disposition: Follow up task sent to [facility] scheduling pool. Desires discharge home today. Fibromyalgia 06/04/2022 06/04/2022 Anxiety 06/04/2022 06/04/2022 Elevated blood pressure affe cting , antepartum 05/22/2022 08/21/2022 Overview (07/31/2022): S/p counseling, working diagnosis: cHTN Reports hx of borderline preeclampsia in G2, reports delivered after 39 wks Pt reports good compliance with daily ASA on 04/2409/28/20 ED - 141/84 09/21/21 ED - 140/86 12/11/21 5w3d IOB- 143/79 05/17/22 27w6d [facility] - 143/61, CBC, CMP wnl, UPC 0.1, uric acid wnl 05/22: reports worsening BLE edema, BUE edema, fascial swelling, ACUNA. Weight stable from last month. CBC/CMP wnl, UPC 0.07 06/29: normal BP, CBC, CMP wnl, UPC 0.16 07/03/22 34w4d [facility] - 148/67, CBC/CMP WNL, UPC 0.15 07/24/22: BPs normal to mild range 07/30: [facility] visit to r/o preE, normotensive, CBC/CMP [...] she is trying to walk. Seen in [facility] 05/17 and 05/28 for symptoms; [facility] C/L/H, no contractions on toco, diagnosed with yeast infection 05/17 and treated with miconazole cream. R/o'ed for ROM on 05/28 US 05/23: EFW 1324g (48%), normal fluid. No mention of uterine window Plan [] strict [facility] precautions given Class 1 obesity due [...] Type Department Care Team Description 08/25/2024 Telephone [facility] Hematology [address] [place] [address] Chasity Melendez 07/29/2024 3:24 AM TEST EXAMINER - 07/29/2024 7:08 AM TEST EXAMINER Emergency [facility] Emergency Department [address] [place] [address] Janae Moran MD Palpitations (Primary Dx) Discharge Disposition: Discharge to home or self care 06/30/2024 3:40 PM TEST EXAMINER - 06/30/2024 11:59 PM TEST EXAMINER Hospital Encounter [facility] [address] [place] [address] Discharge Disposition: Discharge to home or self care 06/30/2024 2:30 PM TEST EXAMINER Office Visit [facility] [place] [address] [place] [address] Yimi Wasserman NP Intractable chronic migraine with aura with status migrainosus (Primary Dx); Tachycardia; Thrombocytopenia (HCC); Acute otitis externa of left ear, unspecified type; Psoriasis 06/30/2024 Orders Only [facility] LAB INTERFACE [id number] Unknown, Notinfile from Last 3 Months Immunizations [...] Never 07/30/2022 How often do you attend adventist or anglican serv ices? Never 07/30/2022 Do you belong to any clubs o r organizations such as adventist groups, unions, fraternal or athletic groups, or [...] staff should administer the PHQ-9) 4 03/[facility] - Occupational Stress Questionnaire Answer Date Recorded [...] place to sleep or slept in a group home (including now)? No 07/30/2022 Houston Depression Scale Answer Date Recorded [place] Depression Scale Total 11 09/04/2022 The thought [...] on file Legal Sex Female 4:51 PM TEST EXAMINER Gender Identity Female 11/17/2021 1:47 PM CDT [...] to Pro paul in First Stage Delivery Location:[place] 2019 Term M CS-LT ranv Livin g Complications:Pre eclampsia 2021 SAB 023 Term 39w 3d 0h 02m 0h 02m 3.84 kg (8 lb 7.5 oz) M C-Sec tion Spinal N Livin g 9 9 ANGEL UCBA , Chikis kerr MD Complications:None Delivery Location:[facility] Main C ampus ([facility] L AND D PROCEDURE) Last Filed Vital Signs Vital Sign Reading Time Taken Comments Blood Pressure 113/69 07/29/2024 5:15 AM TEST EXAMINER Pulse 90 07/29/2024 6:00 AM TEST EXAMINER Temperature 37.3 C (99.1 F) 07/29/2024 2:01 AM TEST EXAMINER Respiratory Rate 19 07/29/2024 6:00 AM TEST EXAMINER Oxygen Saturation 100% 07/29/2024 6:00 AM TEST EXAMINER Inhaled Oxygen Concentration - - Weight 51.7 kg (114 lb) 07/29/2024 2:05 AM TEST EXAMINER Height 160 cm (5' 3 ) 07/29/2024 2:05 AM TEST EXAMINER Body Mass Index 20.19 07/29/2024 2:05 AM TEST EXAMINER Plan of Treatment Health Maintenance Due Date [...] T HIGH-SENSITIVITY 2-HOUR Timed 07/29/2024 4:45 AM TEST EXAMINER XR CHEST 1 VIEW ED 07/29/2024 2:34 AM TEST EXAMINER ECG 12-LEAD STAT 07/29/2024 2:17 AM TEST EXAMINER EGFR STAT 07/29/2024 2:13 AM TEST EXAMINER DIFFERENTIAL AUTO STAT 07/29/2024 2:1 3 AM TEST EXAMINER TROPONIN T HIGH-SENSITIVITY SERIES (BASELINE, 2HR, 4HR, 6HR) STAT 07/29/2024 2:13 AM TEST EXAMINER COMPREHENSIVE METABOLIC PANEL STAT 07/29/2024 2:13 AM TEST EXAMINER CBC WITH AUTO DIFFERENTIAL STAT 07/29/2024 2:13 AM TEST EXAMINER CHRISTOPHER QUALITATIVE WITH REFLEX TO CHRISTOPHER QUANTITATIVE Routine 06/30/2024 8:18 PM TEST EXAMINER Thrombocytopenia (HCC) Psoriasis DIFFERENTIAL AUTO Routine 06/30/2024 6:5 6 PM TEST EXAMINER Thrombocytopenia (HCC) Psoriasis CBC WITH AUTO DIFFERENTIAL Routine 06/30/2024 6:56 PM TEST EXAMINER Thrombocytopenia (HCC) Psoriasis ERYTHROCYTE SEDIMENTATION RATE Routine 06/30/2024 6:56 PM TEST EXAMINER Thrombocytopenia (HCC) Psoriasis KARMA-1 ANTIBODY Routine 06/30/2024 6:54 PM TEST EXAMINER Thrombocytopenia (HCC) Psoriasis HEMOCHROMATOSIS HFE GENE ANALYSIS Routine 06/30/2024 6:54 PM TEST EXAMINER Thrombocytopenia (HCC) Psoriasis ANTIHISTONE ANTIBODIES Routine 6:54 PM TEST EXAMINER Thrombocytopenia (HCC) Psoriasis CRP (ACUTE PHASE) Routine 06/30/2024 6:5 2 PM TEST EXAMINER Thrombocytopenia (HCC) Psoriasis RHEUMATOID FACTOR Routine 06/30/2024 6:5 2 PM TEST EXAMINER Thrombocytopenia (HCC) Psoriasis IRON PROFILE W/ IBC Routine 06/30/2024 6 :52 PM TEST EXAMINER Thrombocytopenia (HCC) Psoriasis FERRITIN Routine 06/30/2024 6:52 PM TEST EXAMINER Thrombocytopenia (HCC) Psoriasis FOLATE Routine 06/30/2024 6:52 PM TEST EXAMINER Thrombocytopenia (HCC) Psoriasis VITAMIN B12 Routine 06/30/2024 6:52 PM TEST EXAMINER Thrombocytopenia (HCC) Psoriasis HLA DISEASE ASSOCIATION B 27 Routine 06/30/2024 6:50 PM TEST EXAMINER HEPATITIS C ANTIBODY Routine 12/11/2021 11:23 AM CDT , unspecified gestational age from Last 3 Months or Most Recently Relevant to Health Maintenance Results * Troponin T high-sensitivity 2-hour (07/29/2024 4:45 AM TEST EXAMINER) Trop T hs <6 <=14 ng/L Comment: Interpretive Data For further hscTnT resources including the diagnostic algorithm and an aid in interpretation, copy and paste this link: https://nrl.testcatalog.org/show/hsTrop Current Interpretive Data last revised 2020. Trop T hs delta 0 ng/L [facility] ([facility]) Trop T hs interp Insignificant [facility] ([facility]AN) Blood 07/29/2024 4:45 AM TEST EXAMINER 07/29/2024 4:51 AM TEST EXAMINER us Janae Moran MD LAB BLOOD ORDERABLES Final Resul t [facility] (PAW PAW) [address] [facility] [place] [address] * XR Chest 1 Vw Portable (if patient condition/safety warrant portable) (07/29/2024 2:34 AM TEST EXAMINER) Anatomical Region Laterality Modality Body, Chest N/A Computed Radiogr aphy 07/29/2024 3:20 AM TEST EXAMINER Narrative 07/29/2024 3:20 AM TEST EXAMINER EXAM DESCRIPTION: XR CHEST 1 VIEW REASON [...] by María Al M.D. SN: Report ID: [id number] Reading Location: [id number] Procedure Note María Al MD - 07/29/2024 [...] by María Al M.D. SN: Report ID: [id number] Reading Location: [id number] Janae Moran MD IMG XR PROCEDURES Final Result * ECG 12 lead (07/29/2024 2:17 AM TEST EXAMINER) 07/29/2024 2:17 AM TEST EXAMINER Narrative [facility] - 07/29/2024 6:57 AM TEST EXAMINER Vent Rate: 105 bpm RR Interval: 570 msec MI Interval: 124 msec QRS Duration: 115 msec QT Interval: 339 msec QTC Interval: 400 msec P-R-T Mcbrides: 73 - 57 - 40 degrees IMPRESSION: SINUS TACHYCARDIA INCOMPLETE RIGHT BUNDLE BRANCH BLOCK [90+ ms QRS DURATION, TERMINAL R IN V1/V2, 40+ ms S IN I/aVL/V4/V5/V6] ABNORMAL RHYTHM ECG NO CHANGE FROM PREVIOUS TRACING NOTED Electronically Signed By: Víctor Matson MD us Janae Moran MD ECG ORDERABLES Final Result [facility] * Troponin T high-sensitivity series (baseline, 2hr, 4hr, 6hr) (07/29/2024 2:13 AM TEST EXAMINER) Trop T hs <6 <=14 ng/L Comment: Interpretive Data For further hscTnT resources including the diagnostic algorithm and an aid in interpretation, copy and paste this link: https://nrl.testcatalog.org/show/hsTrop Current Interpretive Data last revised 2020. Blood 07/29/2024 2:13 AM TEST EXAMINER 07/29/2024 2:22 AM TEST EXAMINER us Janae Moran MD LAB BLOOD ORDERABLES Final Resul t [facility] [address] [place] [address] * eGFR (07/29/2024 2:13 AM TEST EXAMINER) eGFR >90 >=60 mL/min/1. 73 m2 Comment: [...] last reviewed 2021. Blood 07/29/2024 2:13 AM TEST EXAMINER 07/29/2024 2:22 AM TEST EXAMINER us Janae Moran MD LAB BLOOD ORDERABLES Final Resul t [facility] (PAW PAW) [address] [facility] [place] [address] * Differential, auto (07/29/2024 2:13 AM TEST EXAMINER) Neutrophil abs 4.1 1.5 - 6.5 K/cumm Imm gran abs 0.0 0.0 - 0.1 K/cumm [facility] ([facility]) Lymphocyte abs 2.0 0.8 - 3.3 K/cumm [facility] ([facility]) Monocyte abs 0.4 0.2 - 0.8 K/cumm [facility] ([facility]) Eosinophil abs 0.2 0.0 - 0.5 K/cumm [facility] (JEAN) Basophil abs 0.0 0.0 - 0.1 K/cumm [facility] (JAEN) Neutrophil pct 61.2 % [facility] [...] revised on 2017. Blood 07/29/2024 2:13 AM TEST EXAMINER 07/29/2024 2:22 AM TEST EXAMINER us Janae Moran MD LAB BLOOD ORDERABLES Final Resul t [facility] ([facility]) [address] [facility] [place] [address] * (ABNORMAL) CBC with auto differential (07/29/2024 2:13 AM TEST EXAMINER) WBC 6.7 3.8 - 9.9 K/cumm Hgb [...] (JEAN) Blood (Blood, Venous) 07/29/2024 2:13 AM TEST EXAMINER 07/29/2024 2:22 AM TEST EXAMINER us Janae Moran MD LAB BLOOD ORDERABLES Final Resul t [facility] ([facility]) [address] [facility] [place] [address] * (ABNORMAL) Comprehensive metabolic panel (07/29/2024 2:13 AM TEST EXAMINER) Sodium 137 135 - 145 mmol/L Potassium, [...] [facility] ([facility]) Blood 07/29/2024 2:13 AM TEST EXAMINER 07/29/2024 2:22 AM TEST EXAMINER us Janae Moran MD LAB BLOOD ORDERABLES Final Resul t Performing Organization Address [facility]/ZIP Co de Phone Number [facility] (JEAN) [address] [facility] [place] [address] * CHRISTOPHER ab ql w/rflx to CHRISTOPHER qn (06/30/2024 8:18 PM TEST EXAMINER) CHRISTOPHER Negative Comment: Interpretive Data Normal range [...] last revised on 2020. Testing performed by: [facility], [address] [place]., [address] Blood 06/30/2024 8:18 PM TEST EXAMINER 06/30/2024 11:29 PM TEST EXAMINER us Yimi Wasserman NP LAB BLOOD ORDERABLES Final Re sult Performing Organization Address City/[facility]/ZIP Co de Phone Number [facility] [address] [place] [address] * Differential, auto (06/30/2024 6:56 PM TEST EXAMINER) Neutrophil abs 3.4 1.5 - 6.5 K/cumm Imm gran abs 0.0 0.0 - 0.1 K/cumm [facility] Lymphocyte abs 1.5 0.8 - 3.3 K/cumm [facility] Monocyte abs 0.3 0.2 - 0.8 K/cumm [facility] Eosinophil abs 0.2 0.0 - 0.5 K/cumm [facility] Basophil abs 0.0 0.0 - 0.1 K/cumm [facility] Neutrophil pct 62.9 % [facility] Comment: Interpretive Data Percent cell count reference ranges are not reported, since discordance with absolute values may lead to misinterpretation of CBC data. Current Interpretive Data was last revised on 2017. Imm gran pct 0.2 % [facility] Comment: Interpretive Data Percent cell count reference ranges are not reported, since discordance with absolute values may lead to misinterpretation of CBC data. Current Interpretive Data was last revised on 2017. Lymphocyte pct 26.9 % [facility] Comment: Interpretive Data Percent cell count reference ranges are not reported, since discordance with absolute values may lead to misinterpretation of CBC data. Current Interpretive Data was last revised on 2017. Monocyte pct 6.0 % [facility] Comment: Interpretive Data Percent cell count reference ranges are not reported, since discordance with absolute values may lead to misinterpretation of CBC data. Current Interpretive Data was last revised on 2017. Eosinophil pct 3.5 % [facility] Comment: Interpretive Data Percent cell count reference ranges are not reported, since discordance with absolute values may lead to misinterpretation of CBC data. Current Interpretive Data was last revised on 2017. Basophil pct 0.5 % [facility] Comment: Interpretive Data Percent cell count reference ranges are not reported, since discordance with absolute values may lead to misinterpretation of CBC data. Current Interpretive Data was last revised on 2017. Blood 06/30/2024 6:56 PM TEST EXAMINER 06/30/2024 6:56 PM TEST EXAMINER us Yimi Wasserman NP LAB BLOOD ORDERABLES Final Re sult [facility] [address] Department [place] [address] * (ABNORMAL) CBC with auto differential (06/30/2024 6:56 PM TEST EXAMINER) WBC 5.5 3.8 - 9.9 K/cumm Hgb 11.6(L) 11.9 - 15.5 g/dL [facility] Hct 36.5 35.6 - 45.5 % [facility] Plt 410(H) 150 - 400 K/cumm [facility] MPV 9.8 9.1 - 12.3 fL [facility] RBC 4.01 3.90 - 5.20 M/cumm [facility] MCV 91.0 81.3 - 96.4 fL [facility] MCH 28.9 27.1 - 33.3 pg [facility] MCHC 31.8(L) 32.3 - 35.7 g/dL [facility] RDW CV 13.3 11.1 - 14.9 % [facility] RDW SD 44.0 35.7 - 48.1 fL [facility] NRBC abs 0.00 0.00 - 0.01 K/cumm [facility] Blood 06/30/2024 6:56 PM TEST EXAMINER 06/30/2024 6:56 PM TEST EXAMINER Yimi Wasserman MANAGER LAN LAB BLOOD ORDERABLES Final Re sult Performing Organization Address City/[facility] Co de Phone Number [facility] [address] [place], [place] [id number] * Erythrocyte sedimentation rate (06/30/2024 6:56 PM TEST EXAMINER) [facility] Erythrocyte sedimentation rate 10 1 - 20 mm/hr Blood 06/30/2024 6:56 PM TEST EXAMINER 06/30/2024 6:56 PM TEST EXAMINER Yimi Wasserman MANAGER LAN LAB BLOOD ORDERABLES Final Re sult Performing Organization Address City/[facility]/ZIP Co de Phone Number [facility] [address] [place] [address] * Karma-1 antibody (06/30/2024 6:54 PM TEST EXAMINER) [facility] Karma 1 Antibody, IgG <0.2 <=0.9 Ab Index Comment: Interpretive Data Negative: < 1.0 Ab Index Positive: > or = 1.0 Ab Index Current interpretive data was last revised on 2016. Testing performed by: [facility], [address] [place]., [address] Blood 06/30/2024 6:54 PM TEST EXAMINER 06/30/2024 9:45 PM TEST EXAMINER Yimi Wasserman MANAGER LAN LAB BLOOD ORDERABLES Final Re sult Performing Organization Address City/[facility]/ZIP Co de Phone Number [facility] [address] Department [email or web address] [place], [place] [id number] * Antihistone antibodies (06/30/2024 6:54 PM TEST EXAMINER) Pathologist [facility] Antihistone TNP [facility] Comment: TEST NOT PERFORMED. Quantity not sufficient. Test Performed at: [facility] [address] [address] DELFIN Tamiko WILSON Blood 06/30/2024 6:54 PM TEST EXAMINER 06/30/2024 6:54 PM TEST EXAMINER Yimi Wasserman MANAGER LAN LAB BLOOD ORDERABLES Final Re sult Performing Organization Address City/[facility]/ZIP Co de Phone Number [facility] [address] [email or web address] [address] [facility] * Hemochromatosis HFE Gene Analysis (06/30/2024 6:54 PM TEST EXAMINER) Pathologist [facility] HFE Genotype H63D Heterozygous [facility] Comment:Testing performed by : [facility], [address] [place]., [address] HFE p.C282Y Negative [facility] Comment:Testing performed by : [facility], [address] [facility], [place]., [address] HFE p.H63D Heterozygous [facility] Comment:Testing performed by : [facility], [address] [place]., [address] HFE Interpretation This genotype is associated with [...] of the clinical implications of this result. [facility] Comment:Testing performed by : [facility], [address] [place]., [address] HFE Specimen Whole Blood [facility] Comment:Testing performed by : [facility], [address] [place]., [address] HFE Result Review KAYLAN Bueno MB(ASCP)Arleth CATHERINE(ASCP)CM [employer], on 07/03/2024 11:47:05 TEST EXAMINER. [facility] Comment: Interpretive Data Method: This assay detects the two variants in the HFE gene, p.C282Y (NM_000410.2: c.845G>A) and p.H63D (NM_000410.2: c.187C>G), that are commonly associated with HH. The variants are detected by a multiplex PCR based assay performed on the [employer] Fast Dx Real-Time PCR instrument. Limitations: Bone [...] determined by the Molecular Diagnostics Laboratory at [facility] in a manner consistent with CLIA requirements. This test has not been cleared or approved by the U.S. Food and Drug Administration. References: Trent JOHN, Chad WALKER, Sen CC, et al. Gxcw-fxmynkml-xwkmfka disease in HFE hereditary hemochromatosis. N Engl J Med. 2008;358:221 3 0. Moise BR, Urbano PC, Surya KV, et al. Diagnosis and management of hemochromatosis: 2011 practice guideline by the [place] Association for the Study of Liver Diseases. [...] the U.S. Preventive Services Task Force. Anna Assayer Helper Med. 2006;145:209 2 3. This test was performed at: [facility], [address] [facility], [place]#[id number], Anna Bryant, Ph.D., [place], [address], [place] Current interpretive data was last revised 2021. Testing performed by: [facility], [address] [facility], [place]., [address] Blood 06/30/2024 6:54 PM TEST EXAMINER 06/30/2024 10:18 PM TEST EXAMINER Yimi Wasserman MANAGER LAN LAB GENETIC TESTING Final Res ult Performing Organization Address City/[facility]/ZIP Co de Phone Number [facility] [address] [place] [address] BJ * (ABNORMAL) Iron profile w/ IBC (06/30/2024 6:52 PM TEST EXAMINER) [facility] Iron 41 35 - 145 mcg/dL TIBC 281 250 - 400 mcg/dL [facility] Transferrin saturation 15(L) 20 - 50 % [facility] Blood 06/30/2024 6:52 PM TEST EXAMINER 06/30/2024 6:52 PM TEST EXAMINER Yimi Wasserman MANAGER LAN LAB BLOOD ORDERABLES Final Re sult [facility] [address] [place] [address] * Rheumatoid factor (06/30/2024 6:52 PM TEST EXAMINER) [facility] Rheumatoid factor, quant <10 <=15 IUnits/mL Blood 06/30/2024 6:52 PM TEST EXAMINER 06/30/2024 6:52 PM TEST EXAMINER us Yimi Wasserman MANAGER LAN LAB BLOOD ORDERABLES Final Re sult Performing Organization Address [facility] de Phone Number [facility] [address] [facility] [email or web address] [address] * CRP (acute phase) (06/30/2024 6:52 PM TEST EXAMINER) CRP <3.0 <=10.0 mg/L Blood 06/30/2024 6:52 PM TEST EXAMINER 06/30/2024 6:52 PM TEST EXAMINER us Yimi Wasserman MANAGER LAN LAB BLOOD ORDERABLES Final Re sult Performing Organization Address [facility] Phone Number [facility] [address] [facility] [email or web address] [place], [place] [id number] * Folate (06/30/2024 6:52 PM TEST EXAMINER) Folic acid 15.6 >=5.0 ng/mL Blood 06/30/2024 6:52 PM TEST EXAMINER 06/30/2024 6:52 PM TEST EXAMINER us Yimi Wasserman MANAGER LAN LAB BLOOD ORDERABLES Final Re sult Performing Organization Address [facility] de Phone Number [facility] [address] [facility] [email or web address] [place], [place] [id number] * Ferritin (06/30/2024 6:52 PM TEST EXAMINER) Ferritin 21 15 - 150 ng/mL Blood 06/30/2024 6:52 PM TEST EXAMINER 06/30/2024 6:52 PM TEST EXAMINER us Ymii Wasserman MANAGER LAN LAB BLOOD ORDERABLES Final Re sult Performing Organization Address [facility] Co de Phone Number [facility] [address] [email or web address] [place] [address] * Vitamin B12 (06/30/2024 6:52 PM TEST EXAMINER) Pathologist [facility] Vitamin B12 1,017 230 - 1,250 pg/mL Blood 06/30/2024 6:52 PM TEST EXAMINER 06/30/2024 6:52 PM TEST EXAMINER us Yimi Wasserman MANAGER LAN LAB BLOOD ORDERABLES Final Re sult [facility] [address] [email or web address] [place] [address] * HLA disease association B 27 (06/30/2024 6:50 PM TEST EXAMINER) Pathologist [facility] HLA-B27 interp HLA-B*27 is Negative. HISTOTRAC 06/30/2024 6:50 PM TEST EXAMINER 07/06/2024 9:54 AM TEST EXAMINER Narrative HISTOTRAC - 07/06/2024 9:54 AM TEST EXAMINER HLA-B typing is performed using the reverse sequence specific oligonucleotide (r-SSO) method, which is based on an FDA approved IVD kit and validated by the [facility] HLA laboratory. Interpretive comments: HLA-B*27 positivity confers [...] J Med 2016;374:[id number]) Testing performed at the [facility], [address] [place] [address], 5th floor, [place], [address]. CLIA # [id number]. Merced Yanez, Ph.D., Ginning Operator, [facility] Laboratory Rupert Alvarez M.D., Ph.D., Finisher Map And Chart, [facility] Anna Bryant, Ph.D., MICHAELIA Finisher Map And Chart, [facility] Current methodology and interpretive comments [...] Edited Result - Final Performing Organization Address City/[facility] Co de Phone Number [facility] [place] [address] from Last 3 Months or Most Recently Relevant to Health Maintenance [place] [address] [facility] [address] [place] [address] [facility] Advance Directives For more information, please contact: [phone] * Full Code (Latest Code Status on File) Date Activated Date Inactivated Comments 08/06/2022 11:52 AM 08/08/2022 3:16 PM * Full Code Date Activated Date Inactivated Comments 08/06/2022 7:45 AM 08/06/2022 11:52 AM Full CPR in case of cardiopulmonary arrest Care Teams Etcher Apprentice Photoengraving Relationship Specialty Start Date End Date Yimi Wasserman NP [address] [place] [address] PCP - General Family Medicine 03/31/24 Petra Fabian MD [address] [place] [address] Resident Obstetrics and Gynecology 06/04/22
--- OUTSIDE RECORDS SUMMARY | 2024-09-16 22:34 | XMS_ITS | Clinical Summary ---
Author Organization [facility] Address [address] [place] [address] Care Team Providers Care Library Acquisitions Technician Name Role Phone Winston Russell MD Primary Care Provider [phone] Medications acetaminophen (TYLENOL) 500 mg Capsule Take [...] with daily ASA on 04/24 - 05/17 [facility]: one MR BP, CBC/CMP wnl, UPC 0.1 - 05/22: reports worsening BLE edema, BUE edema, fascial swelling, ACUNA. Weight stable from last month. CBC/CMP wnl, UPC 0.07 06/05: normotensive 06/11: Seen in [facility] 06/11 for ACUNA; BP normotensive 06/19: Normotensive, [...] and repeat Monk's visual field testing w/ job coach in 4 weeks and for repeat brain MRI pituitary w/wo contrast when able -Seen by job coach 07/02, normal exam and visual field testing Plan: [] Repeat brain MRI pituitary w/wo contrast - ordered today, given scheduling info [] Digital Music Instructor return visit in 2mo for refraction - [...] today, continue below regimen -06/11: Seen in [facility] for ACUNA, resolved with sumatriptan -07/24/22: no [...] - neg Counseling [x] Method of delivery: [facility] - 08/06/22 [x] Method of contraception: Desires BTL at time of [facility] Medicaid consents signed 06/19, partner no longer getting vasectomy [x] Method of feeding: breast, already has breast pump delivered [] Printed Circuit Boards Router: [] Car seat Discussed [] PP Depression Counseling Attention deficit disorder 11/21/2021 Overview (11/21/2022): Previously diagnosed with bipolar disorder, anxiety, and depression. [place]river use over 1 yr ago. Follows with [facility], online psychiatry platform and dx with ADHD and taking adderall 5mg daily vs BID (prescribed BID). - seen by Psych 05/30 and stopped Adderall Last Assessment & Plan: Following with psychaitry Continue aderral 10 mg bid, wellbutrin 150 mg every day as per psychaitry Encounters Date Type Department Care Team Description 07/30/2024 [facility] [address] BEDS AT THE [facility] [address] [place] [id number] Royer Ansari, [place] Chronic right-sided low back [...] or Tdap) 05/22/2032 05/22/2022, 05/06/2014 Insurance [employer] [facility] MEDICAID Care Teams Library Acquisitions Technician Relationship Specialty Start Date End Date Winston Russell MD [address] [place] [phone] PCP - General Family Practice 11/21/22
--- OUTSIDE RECORDS SUMMARY | 2024-09-16 22:34 | XMS_ITS | Continuity of Care Document ---
Author Organization [facility] Address [address] [place] [address] Phone Care Team Providers Care Border Patrol Agent Name Role Phone Unavailable Unavailable Unavailable Advance Directives Directive Yes / No Effective Date File Name No Information Encounters Encounter Description Practice Location Reason(s) For Visit Diagnoses Date Provider Providers Copied on Encounter [facility], [address], [place], [place], [id number], [place] tel:[phone] [facility] No Information 0 No Information Family History Family Member Type Diagnosis Age At Onset No Information Payers Payer name Insurance type Covered alliance party ID Authoriza tion(s) [facility] [id number] Social History Type Description Quantity Date Captured Comments Sex Female Smoking Status No Information Chief Complaint And Reason For Visit No Information History Of Present Illness Encounter Date Complaint History Of Prese nt Illness No Information Instructions Date Instruction Additional Infor mation No Information Assessments Type Assessment Date No Information
--- OUTSIDE RECORDS SUMMARY | 2024-09-16 22:34 | XMS_ITS | Referral Summary ---
Author Organization [facility] Building Address [address] [place] [id number] Care Team Providers Care Senior Linux Unix Administrator Name Role Phone Caren, Petra Ann MD Unavailable Yimi Wasserman NP Primary Care Provider [phone] Encounters Date Type Department Care Team Description 08/25/2024 Telephone [place] [id number] [facility] Floor [address] [place] [address] Chasity Melendez 07/29/2024 3:24 AM ENVIRONMENTAL EDUCATION SPECIALIST - 07/29/2024 7:08 AM [facility] Emergency [facility] Emergency Department [address] [place] [address] Janae Moran MD Palpitations (Primary Dx) Discharge Disposition: Discharge to home or self care 06/30/2024 Orders Only [facility] LAB INTERFACE [id number] Unknown, Notinfile 06/30/2024 3:40 PM ENVIRONMENTAL EDUCATION SPECIALIST - 06/30/2024 11:59 PM ENVIRONMENTAL EDUCATION SPECIALIST Hospital Encounter [facility] [address] [place] [address] Discharge Disposition: Discharge to home or self care 06/30/2024 2:30 PM ENVIRONMENTAL EDUCATION SPECIALIST Office Visit [facility] [place] [address] [place] [address] Yimi Wasserman NP Intractable chronic [...] 07/02/2024 Assessment & Plan (07/03/2024 10:15 AM ENVIRONMENTAL EDUCATION SPECIALIST): New Chronic condition. Reviewed holter monitor report and echo. Start Toprol 50mg every 24 hours. Consider portfolio administrator referral. Thrombocytopenia 07/02/2024 Assessment & Plan (07/02/2024 4:52 PM ENVIRONMENTAL EDUCATION SPECIALIST): Improving. Ordered and reviewed CBC- platelets are coming down. Continue aspirin 81mg daily. Acute otitis externa of left ear 07/02/2024 Assessment & Plan (07/02/2024 4:53 PM ENVIRONMENTAL EDUCATION SPECIALIST): New. Start Ciprodex otic. Use ear drops [...] 07/02/2024 Assessment & Plan (07/03/2024 10:16 AM ENVIRONMENTAL EDUCATION SPECIALIST): Chronic and stable. Start Hydrocortisone cream as [...] 022 Assessment & Plan (07/02/2022 3:14 PM ENVIRONMENTAL EDUCATION SPECIALIST): Recommended ATs PRN both eyes (OU) due [...] today, continue below regimen -06/11: Seen in [facility] for ACUNA, resolved with sumatriptan -07/24/22: no headache currently, has had them more frequently over past 1-2 weeks CURRENT REG: mag ox, riboflavin, reglan, benadryl Plan [] monitor sx qV [] BP monitoring as above [] reviewed preE precautions, headache precautions Assessment & Plan (07/03/2024 10:15 AM ENVIRONMENTAL EDUCATION SPECIALIST): Uncontrolled. Start toprol XL 50mg daily for [...] or bologna; no MSG as found in armenian food; no more than 1/2 banana a [...] headaches. Assessment & Plan (06/04/2022 10:03 AM ENVIRONMENTAL EDUCATION SPECIALIST): History of chronic migraine that has been increase in frequency and severity over the past 2 months. Headache hygiene discussed and recommend follow-up with obgyn for monitoring of signs of pre-eclampsia. Blurry vision, bilateral 06/04/2022 Assessment & Plan (03/31/2024 11:49 AM CDT): Recurring/worsening. Repeat brain MRI. Assessment & Plan (07/02/2022 3:16 PM ENVIRONMENTAL EDUCATION SPECIALIST): No evidence of ONH changes, no edema [...] prn Assessment & Plan (06/04/2022 10:02 AM ENVIRONMENTAL EDUCATION SPECIALIST): Subjective blurry vision for the past 2-8 [...] - neg Counseling [x] Method of delivery: [facility] - 1/16/23 [x] Method of contraception: Desires BTL at time of [facility] - [place] Medicaid consents signed 06/19, partner no longer getting vasectomy [x] Method of feeding: breast, already has breast pump delivered [] Hand Shoe Cutter: [] Car seat Discussed [] PP Depression Counseling Attention deficit disorder 11/21/2021 Overview (07/03/2022): Previously diagnosed with bipolar disorder, anxiety, and depression. [place] use over 1 yr ago. Follows with [facility], online psychiatry platform and dx with ADHD and taking adderall 5mg daily vs BID (prescribed BID). - seen by Psych 05/30 and stopped Adderall Assessment & Plan (03/31/2024 11:55 AM CDT): Manged by [facility] with Adderall and wellbutrin. Assessment & [...] that she was following with psychaitry through [facility], states that her psychiatrist is on sabbatical and no one in the office knows her as a patient and refuses to reifll medication. [facility] states that [facility] before - will get records from [facility] prior to any refils, new psych referral [...] incidentally found on MRI (late 2020) at [facility] while patient was undergoing work-up for multiple sclerosis - Pt reports 1 yr hx of visual changes, lower extremity neuropathy, weakness, and loss of sensation, multiple falls - Follows with neurology and endocrinology at [facility] - MRI 06/22/2021 with 3mm nonenhancing lesion [...] and repeat Monk's visual field testing w/ stable manager in 4 weeks and for repeat brain MRI pituitary w/wo contrast when able -Seen by stable manager 07/02, normal exam and visual field testing Plan: [] Repeat brain MRI pituitary w/wo contrast - ordered today, given scheduling info [] Food And Nutrition Teacher return visit in 2mo for refraction - patient will schedule Assessment & Plan (03/31/2024 11:49 AM CDT): Hx of pituitary microademona. Last MRI done 12/11/2022 with no significant changes from the previous one in 05/18/2022. Repeat MRI. Will check prolactin levels, LH, and cortisol. Assessment & Plan (07/02/2022 3:14 PM ENVIRONMENTAL EDUCATION SPECIALIST): Stable eye exam, there are scattered nasal [...] monitor Assessment & Plan (06/04/2022 10:02 AM ENVIRONMENTAL EDUCATION SPECIALIST): Brain MRI wo contrast on 05/21 showed [...] UPC 0.07 06/05: normotensive 06/11: Seen in [facility] 06/11 for ACUNA; BP normotensive 06/19: [...] # Disposition: Follow up task sent to [facility] scheduling pool. Desires discharge home today. Fibromyalgia 06/04/2022 06/04/2022 Anxiety 06/04/2022 06/04/2022 Elevated blood pressure affe cting , antepartum 05/22/2022 08/21/2022 Overview (07/31/2022): S/p counseling, working diagnosis: cHTN Reports hx of borderline preeclampsia in G2, reports delivered after 39 wks Pt reports good compliance with daily ASA on 04/2409/28/20 ED - 141/84 09/21/21 ED - 140/86 12/11/21 5w3d IOB- 143/79 05/17/22 27w6d [facility] - 143/61, CBC, CMP wnl, UPC 0.1, uric acid wnl 05/22: reports worsening BLE edema, BUE edema, fascial swelling, ACUNA. Weight stable from last month. CBC/CMP wnl, UPC 0.07 06/29: normal BP, CBC, CMP wnl, UPC 0.16 07/03/22 34w4d [facility] - 148/67, CBC/CMP WNL, UPC 0.15 07/24/22: BPs normal to mild range 07/30: [facility] visit to r/o preE, normotensive, CBC/CMP WNL, [...] she is trying to walk. Seen in [facility] 05/17 and 05/28 for symptoms; SVE C/L/H, no contractions on toco, diagnosed with yeast infection 05/17 and treated with miconazole cream. R/o'ed for ROM on 05/28 US 05/23: EFW 1324g (48%), normal fluid. No mention of uterine window Plan [] strict [facility] precautions given Class 1 obesity due to [...] Never 07/30/2022 How often do you attend congregational or confucianist serv ices? Never 07/30/2022 Do you belong to any clubs o r organizations such as congregational groups, unions, fraternal or athletic groups, or [...] staff should administer the PHQ-9) 4 03/31/2024 [facility] - Occupational [...] place to sleep or slept in a senior living (including now)? No 07/30/2022 [place] Depression Scale Answer Date Recorded [place] Depression Scale Total 11 09/04/2022 The thought [...] on file Legal Sex Female 4:51 PM ENVIRONMENTAL EDUCATION SPECIALIST Gender Identity Female 11/17/2021 1:47 PM CDT Sexual Orientation Straight 12/30/2023 3: 10 AM CDT Last Filed Vital Signs Vital Sign Reading Time Taken Comments Blood Pressure 113/69 07/29/2024 5:15 AM ENVIRONMENTAL EDUCATION SPECIALIST Pulse 90 07/29/2024 6:00 AM ENVIRONMENTAL EDUCATION SPECIALIST Temperature 37.3 C (99.1 F) 07/29/2024 2:01 AM ENVIRONMENTAL EDUCATION SPECIALIST Respiratory Rate 19 07/29/2024 6:00 AM ENVIRONMENTAL EDUCATION SPECIALIST Oxygen Saturation 100% 07/29/2024 6:00 AM ENVIRONMENTAL EDUCATION SPECIALIST Inhaled Oxygen Concentration - - Weight 51.7 kg (114 lb) 07/29/2024 2:05 AM ENVIRONMENTAL EDUCATION SPECIALIST Height 160 cm (5' 3 ) 07/29/2024 2:05 AM ENVIRONMENTAL EDUCATION SPECIALIST Body Mass Index 20.19 07/29/2024 2:05 AM ENVIRONMENTAL EDUCATION SPECIALIST Plan of Treatment Not on file Procedures Procedure Name Priority Date/Time Associated Diagnosis Comments TROPONIN T HIGH-SENSITIVITY 2-HOUR Timed 07/29/2024 4:45 AM ENVIRONMENTAL EDUCATION SPECIALIST XR CHEST 1 VIEW ED 07/29/2024 2:34 AM ENVIRONMENTAL EDUCATION SPECIALIST ECG 12-LEAD STAT 07/29/2024 2:17 AM ENVIRONMENTAL EDUCATION SPECIALIST EGFR STAT 07/29/2024 2:13 AM ENVIRONMENTAL EDUCATION SPECIALIST DIFFERENTIAL AUTO STAT 07/29/2024 2:1 3 AM ENVIRONMENTAL EDUCATION SPECIALIST TROPONIN T HIGH-SENSITIVITY SERIES (BASELINE, 2HR, 4HR, 6HR) STAT 07/29/2024 2:13 AM ENVIRONMENTAL EDUCATION SPECIALIST COMPREHENSIVE METABOLIC PANEL STAT 07/29/2024 2:13 AM ENVIRONMENTAL EDUCATION SPECIALIST CBC WITH AUTO DIFFERENTIAL STAT 07/29/2024 2:13 AM ENVIRONMENTAL EDUCATION SPECIALIST CHRISTOPHER QUALITATIVE WITH REFLEX TO CHRISTOPHER QUANTITATIVE Routine 06/30/2024 8:18 PM ENVIRONMENTAL EDUCATION SPECIALIST Thrombocytopenia (HCC) Psoriasis DIFFERENTIAL AUTO Routine 06/30/2024 6:5 6 PM ENVIRONMENTAL EDUCATION SPECIALIST Thrombocytopenia (HCC) Psoriasis CBC WITH AUTO DIFFERENTIAL Routine 06/30/2024 6:56 PM ENVIRONMENTAL EDUCATION SPECIALIST Thrombocytopenia (HCC) Psoriasis ERYTHROCYTE SEDIMENTATION RATE Routine 06/30/2024 6:56 PM ENVIRONMENTAL EDUCATION SPECIALIST Thrombocytopenia (HCC) Psoriasis KARMA-1 ANTIBODY Routine 06/30/2024 6:54 PM ENVIRONMENTAL EDUCATION SPECIALIST Thrombocytopenia (HCC) Psoriasis HEMOCHROMATOSIS HFE GENE ANALYSIS Routine 06/30/2024 6:54 PM ENVIRONMENTAL EDUCATION SPECIALIST Thrombocytopenia (HCC) Psoriasis ANTIHISTONE ANTIBODIES Routine 6:54 PM ENVIRONMENTAL EDUCATION SPECIALIST Thrombocytopenia (HCC) Psoriasis CRP (ACUTE PHASE) Routine 06/30/2024 6:5 2 PM ENVIRONMENTAL EDUCATION SPECIALIST Thrombocytopenia (HCC) Psoriasis RHEUMATOID FACTOR Routine 06/30/2024 6:5 2 PM ENVIRONMENTAL EDUCATION SPECIALIST Thrombocytopenia (HCC) Psoriasis IRON PROFILE W/ IBC Routine 06/30/2024 6 :52 PM ENVIRONMENTAL EDUCATION SPECIALIST Thrombocytopenia (HCC) Psoriasis FERRITIN Routine 06/30/2024 6:52 PM ENVIRONMENTAL EDUCATION SPECIALIST Thrombocytopenia (HCC) Psoriasis FOLATE Routine 06/30/2024 6:52 PM ENVIRONMENTAL EDUCATION SPECIALIST Thrombocytopenia (HCC) Psoriasis VITAMIN B12 Routine 06/30/2024 6:52 PM ENVIRONMENTAL EDUCATION SPECIALIST Thrombocytopenia (HCC) Psoriasis HLA DISEASE ASSOCIATION B 27 Routine 06/30/2024 6:50 PM ENVIRONMENTAL EDUCATION SPECIALIST HEPATITIS C ANTIBODY Routine 12/11/2021 11:23 AM CDT , unspecified gestational age from Last 3 Months or Most Recently Relevant to Health Maintenance Results * Troponin T high-sensitivity 2-hour (07/29/2024 4:45 AM ENVIRONMENTAL EDUCATION SPECIALIST) Trop T hs <6 <=14 ng/L Comment: Interpretive Data For further hscTnT resources including the diagnostic algorithm and an aid in interpretation, copy and paste this link: https://nrl.testcatalog.org/show/hsTrop Current Interpretive Data last revised 2020. Trop T hs delta 0 ng/L [facility] ([facility]) Trop T hs interp Insignificant [facility] ([facility]) Blood 07/29/2024 4:45 AM ENVIRONMENTAL EDUCATION SPECIALIST 07/29/2024 4:51 AM ENVIRONMENTAL EDUCATION SPECIALIST us Janae Moran MD LAB BLOOD ORDERABLES Final Resul t [facility] (JEAN) 1 [facility] Department [place] [address] * XR Chest 1 Vw Portable (if patient condition/safety warrant portable) (07/29/2024 2:34 AM ENVIRONMENTAL EDUCATION SPECIALIST) Anatomical Region Laterality Modality Body, Chest N/A Computed Radiogr aphy 07/29/2024 3:20 AM ENVIRONMENTAL EDUCATION SPECIALIST Narrative 07/29/2024 3:20 AM ENVIRONMENTAL EDUCATION SPECIALIST EXAM DESCRIPTION: XR CHEST 1 VIEW REASON [...] by María Al M.D. SN: Report ID: [id number] Reading Location: [id number] Procedure Note María Al MD - 07/29/2024 [...] María Al M.D. SN: SN Report ID: [id number] Reading Location: [id number] Janae Moran MD IMG XR PROCEDURES Final Result * ECG 12 lead (07/29/2024 2:17 AM ENVIRONMENTAL EDUCATION SPECIALIST) 07/29/2024 2:17 AM ENVIRONMENTAL EDUCATION SPECIALIST Narrative [facility] - 07/29/2024 6:57 AM ENVIRONMENTAL EDUCATION SPECIALIST Vent Rate: 105 bpm RR Interval: 570 msec VA Interval: 124 msec QRS Duration: 115 msec QT Interval: 339 msec QTC Interval: 400 msec P-R-T Randolph: 73 - 57 - 40 degrees IMPRESSION: SINUS TACHYCARDIA INCOMPLETE RIGHT BUNDLE BRANCH BLOCK [90+ ms QRS DURATION, TERMINAL R IN V1/V2, 40+ ms S IN I/aVL/V4/V5/V6] ABNORMAL RHYTHM ECG NO CHANGE FROM PREVIOUS TRACING NOTED Electronically Signed By: Víctor Matson MD Janae Moran MD ECG ORDERABLES Final Result [facility] * Troponin T high-sensitivity series (baseline, 2hr, 4hr, 6hr) (07/29/2024 2:13 AM ENVIRONMENTAL EDUCATION SPECIALIST) Trop T hs <6 <=14 ng/L Comment: Interpretive Data For further hscTnT resources including the diagnostic algorithm and an aid in interpretation, copy and paste this link: https://nrl.testcatalog.org/show/hsTrop Current Interpretive Data last revised 2020. Blood 07/29/2024 2:13 AM ENVIRONMENTAL EDUCATION SPECIALIST 07/29/2024 2:22 AM ENVIRONMENTAL EDUCATION SPECIALIST Janae Moran MD LAB BLOOD ORDERABLES Final Resul t [facility] ([place]) 1 [facility] [email or web address] [address] * eGFR (07/29/2024 2:13 AM ENVIRONMENTAL EDUCATION SPECIALIST) eGFR >90 >=60 mL/min/1. 73 m2 Comment: [...] last reviewed 2021. Blood 07/29/2024 2:13 AM ENVIRONMENTAL EDUCATION SPECIALIST 07/29/2024 2:22 AM ENVIRONMENTAL EDUCATION SPECIALIST us Janae Moran MD LAB BLOOD ORDERABLES Final Resul t [facility] ([place]) 1 [facility] [place] [address] * Differential, auto (07/29/2024 2:13 AM ENVIRONMENTAL EDUCATION SPECIALIST) Neutrophil abs 4.1 1.5 - 6.5 K/cumm [...] revised on 2017. Blood 07/29/2024 2:13 AM ENVIRONMENTAL EDUCATION SPECIALIST 07/29/2024 2:22 AM ENVIRONMENTAL EDUCATION SPECIALIST us Janae Moran MD LAB BLOOD ORDERABLES Final Resul t [facility] (JEAN) 1 [facility] [place] [address] * (ABNORMAL) CBC with auto differential (07/29/2024 2:13 AM ENVIRONMENTAL EDUCATION SPECIALIST) Pathologist [facility] WBC 6.7 3.8 - 9.9 K/cumm Hgb [...] (JEAN) Blood (Blood, Venous) 07/29/2024 2:13 AM ENVIRONMENTAL EDUCATION SPECIALIST 07/29/2024 2:22 AM ENVIRONMENTAL EDUCATION SPECIALIST us Janae Moran MD LAB BLOOD ORDERABLES Final Resul t [facility] (JEAN) 1 [facility] [place] [address] * (ABNORMAL) Comprehensive metabolic panel (07/29/2024 2:13 AM ENVIRONMENTAL EDUCATION SPECIALIST) Pathologist [facility] Sodium 137 135 - 145 mmol/L Potassium, [...] [facility] ([facility]) Blood 07/29/2024 2:13 AM ENVIRONMENTAL EDUCATION SPECIALIST 07/29/2024 2:22 AM ENVIRONMENTAL EDUCATION SPECIALIST us Janae Moran MD LAB BLOOD ORDERABLES Final Resul t [facility] (JEAN) 1 [facility] Department [place] [address] * CHRISTOPHER ab ql w/rflx to CHRISTOPHER qn (06/30/2024 8:18 PM ENVIRONMENTAL EDUCATION SPECIALIST) CHRISTOPHER Negative Comment: Interpretive Data Normal range [...] last revised on 2020. Testing performed by: [facility], [address] [place]., [address] Blood 06/30/2024 8:18 PM ENVIRONMENTAL EDUCATION SPECIALIST 06/30/2024 11:29 PM ENVIRONMENTAL EDUCATION SPECIALIST us Yimi Wasserman POWER TRANSMISSION ENGINEER LAB BLOOD ORDERABLES Final Re sult [facility] [address] Department [place] [address] * Differential, auto (06/30/2024 6:56 PM ENVIRONMENTAL EDUCATION SPECIALIST) Neutrophil abs 3.4 1.5 - 6.5 K/cumm Imm gran abs 0.0 0.0 - 0.1 K/cumm [facility] Lymphocyte abs 1.5 0.8 - 3.3 K/cumm [facility] Monocyte abs 0.3 0.2 - 0.8 K/cumm [facility] Eosinophil abs 0.2 0.0 - 0.5 K/cumm [facility] Basophil abs 0.0 0.0 - 0.1 K/cumm [facility] Neutrophil pct 62.9 % [facility] Comment: Interpretive Data Percent cell count reference ranges are not reported, since discordance with absolute values may lead to misinterpretation of CBC data. Current Interpretive Data was last revised on 2017. Imm gran pct 0.2 % [facility] Comment: Interpretive Data Percent cell count reference ranges are not reported, since discordance with absolute values may lead to misinterpretation of CBC data. Current Interpretive Data was last revised on 2017. Lymphocyte pct 26.9 % [facility] Comment: Interpretive Data Percent cell count reference ranges are not reported, since discordance with absolute values may lead to misinterpretation of CBC data. Current Interpretive Data was last revised on 2017. Monocyte pct 6.0 % [facility] Comment: Interpretive Data Percent cell count reference ranges are not reported, since discordance with absolute values may lead to misinterpretation of CBC data. Current Interpretive Data was last revised on 2017. Eosinophil pct 3.5 % [facility] Comment: Interpretive Data Percent cell count reference ranges are not reported, since discordance with absolute values may lead to misinterpretation of CBC data. Current Interpretive Data was last revised on 2017. Basophil pct 0.5 % [facility] Comment: Interpretive Data Percent cell count reference ranges are not reported, since discordance with absolute values may lead to misinterpretation of CBC data. Current Interpretive Data was last revised on 2017. Blood 06/30/2024 6:56 PM ENVIRONMENTAL EDUCATION SPECIALIST 06/30/2024 6:56 PM ENVIRONMENTAL EDUCATION SPECIALIST us Yimi Wasserman POWER TRANSMISSION ENGINEER LAB BLOOD ORDERABLES Final Re sult [facility] [address] Department [place] [address] * (ABNORMAL) CBC with auto differential (06/30/2024 6:56 PM ENVIRONMENTAL EDUCATION SPECIALIST) WBC 5.5 3.8 - 9.9 K/cumm Hgb 11.6(L) 11.9 - 15.5 g/dL [facility] Hct 36.5 35.6 - 45.5 % [facility] Plt 410(H) 150 - 400 K/cumm [facility] MPV 9.8 9.1 - 12.3 fL [facility] RBC 4.01 3.90 - 5.20 M/cumm [facility] MCV 91.0 81.3 - 96.4 fL [facility] MCH 28.9 27.1 - 33.3 pg [facility] MCHC 31.8(L) 32.3 - 35.7 g/dL [facility] RDW CV 13.3 11.1 - 14.9 % [facility] RDW SD 44.0 35.7 - 48.1 fL [facility] NRBC abs 0.00 0.00 - 0.01 K/cumm [facility] Blood 06/30/2024 6:56 PM ENVIRONMENTAL EDUCATION SPECIALIST 06/30/2024 6:56 PM ENVIRONMENTAL EDUCATION SPECIALIST Yimi Wasserman POWER TRANSMISSION ENGINEER LAB BLOOD ORDERABLES Final Re sult Performing Organization Address [facility]/ZIP Co de Phone Number [facility] [address] [facility] [place] [address] * Erythrocyte sedimentation rate (06/30/2024 6:56 PM ENVIRONMENTAL EDUCATION SPECIALIST) Erythrocyte sedimentation rate 10 1 - 20 mm/hr Blood 06/30/2024 6:56 PM ENVIRONMENTAL EDUCATION SPECIALIST 06/30/2024 6:56 PM ENVIRONMENTAL EDUCATION SPECIALIST us Yimi Wasserman POWER TRANSMISSION ENGINEER LAB BLOOD ORDERABLES Final Re sult Performing Organization Address [facility] Co de Phone Number [facility] [address] [place] [address] * Karma-1 antibody (06/30/2024 6:54 PM ENVIRONMENTAL EDUCATION SPECIALIST) Karma 1 Antibody, IgG <0.2 <=0.9 Ab Index Comment: Interpretive Data Negative: < 1.0 Ab Index Positive: > or = 1.0 Ab Index Current interpretive data was last revised on 2016. Testing performed by: [facility], [address] [place] [address] Blood 06/30/2024 6:54 PM ENVIRONMENTAL EDUCATION SPECIALIST 06/30/2024 9:45 PM ENVIRONMENTAL EDUCATION SPECIALIST us Yimi Wasserman POWER TRANSMISSION ENGINEER LAB BLOOD ORDERABLES Final Re sult Performing Organization Address City/[facility]/ZIP Co de Phone Number [facility] [address] Department [place] [address] * Antihistone antibodies (06/30/2024 6:54 PM ENVIRONMENTAL EDUCATION SPECIALIST) Antihistone TNP [facility] Comment: TEST NOT PERFORMED. Quantity not sufficient. Test Performed at: [facility] [address] [place] [address] DELFIN WILSON Blood 06/30/2024 6:54 PM ENVIRONMENTAL EDUCATION SPECIALIST 06/30/2024 6:54 PM ENVIRONMENTAL EDUCATION SPECIALIST us Yimi Wasserman POWER TRANSMISSION ENGINEER LAB BLOOD ORDERABLES Final Re sult [facility] [address] Department [place] [address] [facility] * Hemochromatosis HFE Gene Analysis (06/30/2024 6:54 PM ENVIRONMENTAL EDUCATION SPECIALIST) Pathologist [facility] HFE Genotype H63D Heterozygous [facility] Comment:Testing performed by : [facility], [address] [place]., [address] HFE p.C282Y Negative [facility] Comment:Testing performed by : [facility], [address] [place]., [address] HFE p.H63D Heterozygous [facility] Comment:Testing performed by : [facility], [address] [place]., [address] HFE Interpretation This genotype is associated with [...] of the clinical implications of this result. [facility] Comment:Testing performed by : [facility], [address] [place]., [address] HFE Specimen Whole Blood [facility] Comment:Testing performed by : [facility], [address] [place]., [address] HFE Result Review KAYLAN Bueno, EDMUNDO([facility])Arleth CATHERINE([facility])CM Barn And Property Manager, on 07/03/2024 11:47:05 ENVIRONMENTAL EDUCATION SPECIALIST. [facility] Comment: Interpretive Data Method: This assay detects the two variants in the HFE gene, p.C282Y (NM_000410.2: c.845G>A) and p.H63D (NM_000410.2: c.187C>G), that are commonly associated with HH. The variants are detected by a multiplex PCR based assay performed on the [employer] Creation 7500 Fast Dx Real-Time PCR instrument. Limitations: [...] determined by the Molecular Diagnostics Laboratory at [facility] in a manner consistent with CLIA requirements. This test has not been cleared or approved by the U.S. Food and Drug Administration. References: Trent KJ, Chad WALKER, Sen CC, et al. Xvdd-rzmcfsuf-elefvzp disease in HFE hereditary hemochromatosis. N Engl J Med. 2008;358:221 3 0. Jose Maria BR, Urbano PC, Surya KV, et al. Diagnosis and management of hemochromatosis: 2011 practice guideline by the [place] Association for the Study of Liver Diseases. [...] 2009;50:94 1 01. Hiram EH, Jean-Claude G, Nahid W. HFE gene and hereditary hemochromatosis: a HuGE review. Human Genome Epidemiology. Am J Epidemiol. 2001 Aug ; 154(3):193-206. Levi A, Racielo C, Byron L, et al. Two novel nonsense mutations of HFE gene in five unrelated [place] patients with hemochromatosis. Gastroenterology. 2000;119:441 5 . Sky EP, Rupali BA, Guerra EL, et al. Screening for hereditary hemochromatosis: a systematic review for the U.S. Preventive Services Task Force. Anna Breaker Up Machine Operator Med. 2006;145:209 2 3. This test was performed at: [facility], [address] [facility] DEAN Owens#[id number], Anna Bryant, Ph.D., [place], [address], [place] Current interpretive data was last revised 2021. Testing performed by: [facility], [address] [facility], [place]., [address] Blood 06/30/2024 6:54 PM ENVIRONMENTAL EDUCATION SPECIALIST 06/30/2024 10:18 PM ENVIRONMENTAL EDUCATION SPECIALIST Yimi Wasserman POWER TRANSMISSION ENGINEER LAB GENETIC TESTING Final Res ult Performing Organization Address [facility] [place] [facility]/ZIP Co de Phone Number [facility] [address] Department [place], [place] [id number] BJ * (ABNORMAL) Iron profile w/ IBC (06/30/2024 6:52 PM ENVIRONMENTAL EDUCATION SPECIALIST) Pathologist [facility] Iron 41 35 - 145 mcg/dL TIBC 281 250 - 400 mcg/dL [facility] Transferrin saturation 15(L) 20 - 50 % [facility] Blood 06/30/2024 6:52 PM ENVIRONMENTAL EDUCATION SPECIALIST 06/30/2024 6:52 PM ENVIRONMENTAL EDUCATION SPECIALIST Yimi Wasserman POWER TRANSMISSION ENGINEER LAB BLOOD ORDERABLES Final Re sult Performing Organization Address [facility] [place] [facility] Co de Phone Number [facility] [address] Department [place], [place] [phone] * Rheumatoid factor (06/30/2024 6:52 PM ENVIRONMENTAL EDUCATION SPECIALIST) Rheumatoid factor, quant <10 <=15 IUnits/mL Blood 06/30/2024 6:52 PM ENVIRONMENTAL EDUCATION SPECIALIST 06/30/2024 6:52 PM ENVIRONMENTAL EDUCATION SPECIALIST Yimi Wasserman POWER TRANSMISSION ENGINEER LAB BLOOD ORDERABLES Final Re sult Performing Organization Address [facility] [place] [facility] Co de Phone Number [facility] [address] Department [place], [place] [id number] * CRP (acute phase) (06/30/2024 6:52 PM ENVIRONMENTAL EDUCATION SPECIALIST) CRP <3.0 <=10.0 mg/L Blood 06/30/2024 6:52 PM ENVIRONMENTAL EDUCATION SPECIALIST 06/30/2024 6:52 PM ENVIRONMENTAL EDUCATION SPECIALIST us Yimi Wasserman POWER TRANSMISSION ENGINEER LAB BLOOD ORDERABLES Final Re sult Performing Organization Address [facility] [place] [facility] Co de Phone Number [facility] [address] [place] [address] * Folate (06/30/2024 6:52 PM ENVIRONMENTAL EDUCATION SPECIALIST) Folic acid 15.6 >=5.0 ng/mL Blood 06/30/2024 6:52 PM ENVIRONMENTAL EDUCATION SPECIALIST 06/30/2024 6:52 PM ENVIRONMENTAL EDUCATION SPECIALIST us Yimi Wasserman POWER TRANSMISSION ENGINEER LAB BLOOD ORDERABLES Final Re sult Performing Organization Address [facility] de Phone Number [facility] [address] [place] [address] * Ferritin (06/30/2024 6:52 PM ENVIRONMENTAL EDUCATION SPECIALIST) Ferritin 21 15 - 150 ng/mL Blood 06/30/2024 6:52 PM ENVIRONMENTAL EDUCATION SPECIALIST 06/30/2024 6:52 PM ENVIRONMENTAL EDUCATION SPECIALIST us Yimi Wasserman POWER TRANSMISSION ENGINEER LAB BLOOD ORDERABLES Final Re sult Performing Organization Address [facility] [place] [facility] de Phone Number [facility] [address] [place] [address] * Vitamin B12 (06/30/2024 6:52 PM ENVIRONMENTAL EDUCATION SPECIALIST) Vitamin B12 1,017 230 - 1,250 pg/mL Blood 06/30/2024 6:52 PM ENVIRONMENTAL EDUCATION SPECIALIST 06/30/2024 6:52 PM ENVIRONMENTAL EDUCATION SPECIALIST us Yimi Wasserman POWER TRANSMISSION ENGINEER LAB BLOOD ORDERABLES Final Re sult Performing Organization Address [facility] [place] [facility] Co de Phone Number [facility] [address] [facility] [address] * HLA disease association B 27 (06/30/2024 6:50 PM ENVIRONMENTAL EDUCATION SPECIALIST) HLA-B27 interp HLA-B*27 is Negative. [facility] 06/30/2024 6:50 PM ENVIRONMENTAL EDUCATION SPECIALIST 07/06/2024 9:54 AM ENVIRONMENTAL EDUCATION SPECIALIST Narrative HISTOTRAC - 07/06/2024 9:54 AM ENVIRONMENTAL EDUCATION SPECIALIST HLA-B typing is performed using the reverse sequence specific oligonucleotide (r-SSO) method, which is based on an FDA approved IVD kit and validated by the [facility] HLA laboratory. Interpretive comments: HLA-B*27 positivity confers [...] J Med 2016;374:2563-74) Testing performed at the [facility] HLA Laboratory, [facility]th [facility], [place], [address]. [facility] # [id number]. Merced Yanez, Ph.D., Zipper Machine Operator, HLA Laboratory Rupert Alvarez M.D., Ph.D., Metal Machinist, HLA Laboratory Anna Bryant, Ph.D., CLIA Metal Machinist, [facility] Clinical Laboratories Current methodology and interpretive comments were last revised on 02/11/2017 us Notinfile Unknown LAB BLOOD ORDERABLES Final Res ult HISTOTRAC * Hepatitis C antibody (12/11/2021 11:23 AM CDT) Hep C Ab Nonreactive Nonreactive [facility] Comment:Antibodies to HCV no t detected. Does NOT exclude the possibility of recent exposure to HCV. Blood 12/11/2021 11:2 3 AM CDT 12/11/2021 11:55 AM CDT Jessie Oseguera MD LAB MICROBIOLOGY - GEN ERAL ORDERABLES Edited Result - Final [facility] Department [place] [address] from Last 3 Months or Most Recently Relevant to Health Maintenance Insurance [facility] Advance Directives For more information, please contact: [phone] * Full Code (Latest Code Status on File) Date Activated Date Inactivated Comments 08/06/2022 11:52 AM 08/08/2022 3:16 PM * Full Code Date Activated Date Inactivated Comments 08/06/2022 7:45 AM 08/06/2022 11:52 AM Full CPR in case of cardiopulmonary arrest Care Teams Senior Linux Unix Administrator Relationship Specialty Start Date End Date Yimi Wasserman NP [address] [facility] [address] [address] [place] [address] PCP - General Family Medicine 03/31/24 Petra Fabian MD [address] [facility] [address] [address] [place] [address] Resident Obstetrics and Gynecology 06/04/22
== END 2024-09-16 21:31 | disposition left against medical advice (07) ==
PROVIDERS: Emergency Medicine; Emergency Provider Physician Assistant
DX: R07.9 Chest pain, unspecified (principal); F17.290 Nicotine dependence, other tobacco product, uncomplicated
CPT/HCPCS: 36415; 71046; 80053; 83690; 84484; 85025; 85610; 85730; 99284

== ENCOUNTER 2024-10-19 17:59 | Emergency (ER) | payer OTHER, SELFPAY ==
--- NOTE | ~2024-10-19 | XR_ITS ---
HISTORY: injury COMPARISON: None TECHNIQUE: 3 views of the left ankle were performed FINDINGS: No acute fracture or dislocation. Postoperative change within the distal fibula. Lateral soft tissue swelling is noted. The ankle mortise is preserved. Bone mineralization is age-appropriate. IMPRESSION: Soft tissue swelling, without underlying fracture. If concern for recurrent tendinous injury (given prior surgical intervention), MRI examination is rec ommended. Reviewed, dictated and finalized at location A. IMPRESSION: Soft tissue swelling, without underlying fracture. If concern for recurrent tendinous injury (given prior surgical intervention), MRI examination is recommended.
--- OUTSIDE RECORDS SUMMARY | 2024-10-19 18:01 | XMS_ITS | Clinical Summary ---
Author Organization [facility] at the Medical Office Building Address [address] [place] [phone] Care Team Providers Care Flasher Adjuster Name Role Phone Petra Fabian MD Unavailable [phone] Yimi Wasserman NP Primary Care Provider [phone] Allergies Active Allergy Reactions Criticality Noted Date [...] needed (palpitations. ) 6 tablet 5 Active cephalexin (KEFLEX) 500 mg capsule Take 1 capsule (500 mg total) by mouth 2 (two) times a day for 7 days 14 capsule 5 10/21/19 25 Active mupirocin (BACTROBAN) 2 % ointment Apply topically 3 (three) times a day for 10 days To affected area on face. 22 g 5 10/24/19 25 Active Active Problems Problem Noted Date Diagnosed Date Tachycardia 07/02/2024 Assessment & Plan (07/03/2024 10:15 AM FACILITY COORDINATOR): New Chronic condition. Reviewed holter monitor report and echo. Start Toprol 50mg every 24 hours. Consider recycler referral. Thrombocytopenia 07/02/2024 Assessment & Plan (07/02/2024 4:52 PM FACILITY COORDINATOR): Improving. Ordered and reviewed CBC- platelets are coming down. Continue aspirin 81mg daily. Acute otitis externa of left ear 07/02/2024 Assessment & Plan (07/02/2024 4:53 PM FACILITY COORDINATOR): New. Start Ciprodex otic. Use ear drops [...] 07/02/2024 Assessment & Plan (07/03/2024 10:16 AM FACILITY COORDINATOR): Chronic and stable. Start Hydrocortisone cream as [...] of right ankle 03/06/2024 Borderline personality disorder 03/06/2024 Contusion of left hip 03/06/2024 Difficulty in walking, not elsewhere classified 03/06/2024 Lumbar strain, initial encounter 09/12/2023 Chronic pain of multiple joints 07/05/2023 Assessment & Plan (03/31/2024 11:50 AM CDT): Chronic. Ordered labs. Dry eye syndrome of both lacrimal glands 022 Assessment & Plan (07/02/2022 3:14 PM FACILITY COORDINATOR): Recommended ATs PRN both eyes (OU) due [...] today, continue below regimen -06/11: Seen in [facility] for ACUNA, resolved with sumatriptan -07/24/22: no headache currently, has had them more frequently over past 1-2 weeks CURRENT REG: mag ox, riboflavin, reglan, benadryl Plan [] monitor sx qV [] BP monitoring as above [] reviewed preE precautions, headache precautions Assessment & Plan (07/03/2024 10:15 AM FACILITY COORDINATOR): Uncontrolled. Start toprol XL 50mg daily for [...] or bologna; no MSG as found in serbian food; no more than 1/2 banana a [...] headaches. Assessment & Plan (06/04/2022 10:03 AM FACILITY COORDINATOR): History of chronic migraine that has been increase in frequency and severity over the past 2 months. Headache hygiene discussed and recommend follow-up with obgyn for monitoring of signs of pre-eclampsia. Blurry vision, bilateral 06/04/2022 Assessment & Plan (03/31/2024 11:49 AM CDT): Recurring/worsening. Repeat brain MRI. Assessment & Plan (07/02/2022 3:16 PM FACILITY COORDINATOR): No evidence of ONH changes, no edema [...] prn Assessment & Plan (06/04/2022 10:02 AM FACILITY COORDINATOR): Subjective blurry vision for the past 2-8 [...] - neg Counseling [x] Method of delivery: [facility] - 08/06/22 [x] Method of contraception: Desires BTL at time of [facility] Medicaid consents signed 06/19, partner no longer getting vasectomy [x] Method of feeding: breast, already has breast pump delivered [] Research Chief Engineer: [] Car seat Discussed [] PP Depression Counseling Attention deficit disorder 11/21/2021 Overview (07/03/2022): Previously diagnosed with bipolar disorder, anxiety, and depression. [place] use over 1 yr ago. Follows with [facility], online psychiatry platform and dx with ADHD and taking adderall 5mg daily vs BID (prescribed BID). - seen by Psych 05/30 and stopped Adderall Assessment & Plan (03/31/2024 11:55 AM CDT): Manged by [facility] psych with Adderall and wellbutrin. Assessment & [...] that she was following with psychaitry through [facility], states that her psychiatrist is on sabbatical and no one in the office knows her as a patient and refuses to reifll medication. [facility] states that [facility] before - will get records from [facility] prior to any refils, new psych referral placed Closed fracture of proximal phalanx of lesser toe of right foot 10/06/2021 Degeneration of lumbar intervertebral disc 06/22 Overview (03/06/2024): 06/22/2021 - CHRISTINE GUAN C
per MRI lumbar/thoracic spine 06/16/21 Arthralgia of left ankle 06/09/2021 Back pain 06/09/2021 Overview (03/06/2024): 06/09/2021 - RAJIV DINH R
Left upper back Borderline personality disorder 04/12/2021 Cannabis dependence 04/12/2021 Adjustment disorder with mixed [...] incidentally found on MRI (late 2020) at [facility] while patient was undergoing work-up for multiple sclerosis - Pt reports 1 yr hx of visual changes, lower extremity neuropathy, weakness, and loss of sensation, multiple falls - Follows with neurology and endocrinology at [facility] - MRI 06/22/2021 with 3mm nonenhancing lesion [...] and repeat Monk's visual field testing w/ notereader in 4 weeks and for repeat brain MRI pituitary w/wo contrast when able -Seen by notereader 07/02, normal exam and visual field testing Plan: [] Repeat brain MRI pituitary w/wo contrast - ordered today, given scheduling info [] Dive Supervisor return visit in 2mo for refraction - patient will schedule Assessment & Plan (03/31/2024 11:49 AM CDT): Hx of pituitary microademona. Last MRI done 12/11/2022 with no significant changes from the previous one in 05/18/2022. Repeat MRI. Will check prolactin levels, LH, and cortisol. Assessment & Plan (07/02/2022 3:14 PM FACILITY COORDINATOR): Stable eye exam, there are scattered nasal [...] monitor Assessment & Plan (06/04/2022 10:02 AM FACILITY COORDINATOR): Brain MRI wo contrast on 05/21 showed [...] with daily ASA on 04/24 - 05/17 [facility]: one MR BP, CBC/CMP wnl, UPC 0.1 - 05/22: reports worsening BLE edema, BUE edema, fascial swelling, ACUNA. Weight stable from last month. CBC/CMP wnl, UPC 0.07 06/05: normotensive 06/11: Seen in [facility] 06/11 for ACUNA; BP normotensive 06/19: [...] # Disposition: Follow up task sent to [facility] scheduling pool. Desires discharge home today. Fibromyalgia 06/04/2022 06/04/2022 Anxiety 06/04/2022 06/04/2022 Elevated blood pressure affe cting , antepartum 05/22/2022 08/21/2022 Overview (07/31/2022): S/p counseling, working diagnosis: cHTN Reports hx of borderline preeclampsia in G2, reports delivered after 39 wks Pt reports good compliance with daily ASA on 04/2409/28/20 ED - 141/84 09/21/21 ED - 140/86 12/11/21 5w3d IOB- 143/79 05/17/22 27w6d CTC - 143/61, CBC, CMP wnl, UPC 0.1, uric acid wnl 05/22: reports worsening BLE edema, BUE edema, fascial swelling, ACUNA. Weight stable from last month. CBC/CMP wnl, UPC 0.07 06/29: normal BP, CBC, CMP wnl, UPC 0.16 07/03/22 34w4d TYRON - 148/67, CBC/CMP WNL, UPC 0.15 07/24/22: BPs normal to mild range 07/30: [facility] visit to r/o preE, normotensive, CBC/CMP [...] she is trying to walk. Seen in [facility] 05/17 and 05/28 for symptoms; SVE C/L/H, no contractions on toco, diagnosed with yeast infection 05/17 and treated with miconazole cream. R/o'ed for ROM on 05/28 US 05/23: EFW 1324g (48%), normal fluid. No mention of uterine window Plan [] strict WAC precautions given Class 1 obesity due to [...] Encounters Date Type Department Care Team Description 10/13/2024 1:30 PM CDT Telemedicine [facility] Virtual Care [address] [place] [address] Savannah Swain NP Facial rash (Primary Dx) 10/13/2024 Patient Self-Triage [facility] [address] [place] [address] Mychart, Generic Provider 08/25/2024 Telephone [facility] Hematology [address] [facility] Floor [address] [place] [address] Chasity Melendez 07/29/2024 3:24 AM FACILITY COORDINATOR - 07/29/2024 7:08 AM FACILITY COORDINATOR Emergency [facility] Emergency Department [address] [place] [address] Janae Moran MD Palpitations (Primary Dx) Discharge Disposition: Discharge to home or self care from Last 3 Months Immunizations Immunization Administration [...] Never 07/30/2022 How often do you attend congregation or muslim serv ices? Never 07/30/2022 Do you belong to any clubs o r organizations such as congregation groups, unions, fraternal or athletic groups, or [...] staff should administer the PHQ-9) 4 03/31/2024 [facility] - Occupational [...] place to sleep or slept in a nursing home (including now)? No 07/30/2022 [place] Depression Scale Answer Date Recorded [place] Depression Scale Total 11 09/04/2022 The thought of harming myself has occurred to me . Never 09/04/2022 PHQ-9 Answer Date Recorded PHQ-9 Total Score 17 03/31/2024 Personal Safety Answer Date Recorded Have you [...] on file Legal Sex Female 4:51 PM FACILITY COORDINATOR Gender Identity Female 11/17/2021 1:47 PM CDT [...] to Pro paul in First Stage Delivery Location:[place] 2019 Term M CS-LT ranv Livin g Complications:Pre eclampsia 2021 SAB 023 Term 39w 3d 0h 02m 0h 02m 3.84 kg (8 lb 7.5 oz) M C-Sec tion Spinal N Livin g 9 9 ANGEL CUBA , Chikis kerr MD Complications:None Delivery Location:[facility] ([facility] L AND D PROCEDURE) Last Filed Vital Signs Vital Sign Reading Time Taken Comments Blood Pressure 113/69 07/29/2024 5:15 AM FACILITY COORDINATOR Pulse 90 07/29/2024 6:00 AM FACILITY COORDINATOR Temperature 37.3 C (99.1 F) 07/29/2024 2:01 AM FACILITY COORDINATOR Respiratory Rate 19 07/29/2024 6:00 AM FACILITY COORDINATOR Oxygen Saturation 100% 07/29/2024 6:00 AM FACILITY COORDINATOR Inhaled Oxygen Concentration - - Weight 51.7 kg (114 lb) 07/29/2024 2:05 AM FACILITY COORDINATOR Height 160 cm (5' 3 ) 07/29/2024 2:05 AM FACILITY COORDINATOR Body Mass Index 20.19 07/29/2024 2:05 AM FACILITY COORDINATOR Plan of Treatment Health Maintenance Due Date [...] T HIGH-SENSITIVITY 2-HOUR Timed 07/29/2024 4:45 AM FACILITY COORDINATOR XR CHEST 1 VIEW ED 07/29/2024 2:34 AM FACILITY COORDINATOR ECG 12-LEAD STAT 07/29/2024 2:17 AM FACILITY COORDINATOR EGFR STAT 07/29/2024 2:13 AM FACILITY COORDINATOR DIFFERENTIAL AUTO STAT 07/29/2024 2:1 3 AM FACILITY COORDINATOR TROPONIN T HIGH-SENSITIVITY SERIES (BASELINE, 2HR, 4HR, 6HR) STAT 07/29/2024 2:13 AM FACILITY COORDINATOR COMPREHENSIVE METABOLIC PANEL STAT 07/29/2024 2:13 AM FACILITY COORDINATOR CBC WITH AUTO DIFFERENTIAL STAT 07/29/2024 2:13 AM FACILITY COORDINATOR HEPATITIS C ANTIBODY Routine 12/11/2021 11:23 AM CDT , unspecified gestational age from Last 3 Months or Most Recently Relevant to Health Maintenance Results * Troponin T high-sensitivity 2-hour (07/29/2024 4:45 AM FACILITY COORDINATOR) Trop T hs <6 <=14 ng/L Comment: Interpretive Data For further hscTnT resources including the diagnostic algorithm and an aid in interpretation, copy and paste this link: https://nrl.testcatalog.org/show/hsTrop Current Interpretive Data last revised 2020. Trop T hs delta 0 ng/L [facility] Trop T hs interp Insignificant [facility]) Blood 07/29/2024 4:45 AM FACILITY COORDINATOR 07/29/2024 4:51 AM FACILITY COORDINATOR us Janae Moran MD LAB BLOOD ORDERABLES Final Resul t [facility] ([place]) [address] [facility] Department [place] [address] * XR Chest 1 Vw Portable (if patient condition/safety warrant portable) (07/29/2024 2:34 AM FACILITY COORDINATOR) Anatomical Region Laterality Modality Body, Chest N/A Computed Radiogr aphy 07/29/2024 3:20 AM FACILITY COORDINATOR Narrative 07/29/2024 3:20 AM FACILITY COORDINATOR EXAM DESCRIPTION: XR CHEST 1 VIEW REASON [...] María Al M.D. SN: SN Report ID: [id number] Reading Location: [id number] Procedure Note María Al MD - 07/29/2024 [...] María Al M.D. SN: SN Report ID: [id number] Reading Location: [id number] us Janae Moran MD IMG XR PROCEDURES Final Result * ECG 12 lead (07/29/2024 2:17 AM FACILITY COORDINATOR) 07/29/2024 2:17 AM FACILITY COORDINATOR Narrative [facility] - 07/29/2024 6:57 AM FACILITY COORDINATOR Vent Rate: 105 bpm RR Interval: 570 msec [place] Interval: 124 msec QRS Duration: 115 msec QT Interval: 339 msec QTC Interval: 400 msec P-R-T Barrett: 73 - 57 - 40 degrees IMPRESSION: SINUS TACHYCARDIA INCOMPLETE RIGHT BUNDLE BRANCH BLOCK [90+ ms QRS DURATION, TERMINAL R IN V1/V2, 40+ ms S IN I/aVL/V4/V5/V6] ABNORMAL RHYTHM ECG NO CHANGE FROM PREVIOUS TRACING NOTED Electronically Signed By: Víctor Matson MD us Janae Moran MD ECG ORDERABLES Final Result Performing Organization Address City/[facility] Co de Phone Number [facility] * Troponin T high-sensitivity series (baseline, 2hr, 4hr, 6hr) (07/29/2024 2:13 AM FACILITY COORDINATOR) Pathologist [facility] Trop T hs <6 <=14 ng/L Comment: Interpretive Data For further hscTnT resources including the diagnostic algorithm and an aid in interpretation, copy and paste this link: https://nrl.testcatalog.org/show/hsTrop Current Interpretive Data last revised 2020. Blood 07/29/2024 2:13 AM FACILITY COORDINATOR 07/29/2024 2:22 AM FACILITY COORDINATOR us Janae Moran MD LAB BLOOD ORDERABLES Final Resul t Performing Organization Address [facility] Co de Phone Number [facility] ([address] [place] [address] * eGFR (07/29/2024 2:13 AM FACILITY COORDINATOR) Pathologist [facility] eGFR >90 >=60 mL/min/1. 73 m2 Comment: [...] last reviewed 2021. Blood 07/29/2024 2:13 AM FACILITY COORDINATOR 07/29/2024 2:22 AM FACILITY COORDINATOR us Janae Moran MD LAB BLOOD ORDERABLES Final Resul t [facility] [address] [facility] Department [place] [address] * Differential, auto (07/29/2024 2:13 AM FACILITY COORDINATOR) Neutrophil abs 4.1 1.5 - 6.5 K/cumm [...] revised on 2017. Blood 07/29/2024 2:13 AM FACILITY COORDINATOR 07/29/2024 2:22 AM FACILITY COORDINATOR us Janae Moran MD LAB BLOOD ORDERABLES Final Resul t [facility] ([place]) [address] [facility] [place] [address] * (ABNORMAL) CBC with auto differential (07/29/2024 2:13 AM FACILITY COORDINATOR) WBC 6.7 3.8 - 9.9 K/cumm Hgb [...] RDW SD 42.3 35.7 - 48.1 fL [facility] NRBC abs 0.00 0.00 - 0.01 K/cumm [facility] Blood Venous blood specimen / Unknown 07/29/2024 2:13 AM FACILITY COORDINATOR 07/29/2024 2:22 AM FACILITY COORDINATOR us Janae Moran MD LAB BLOOD ORDERABLES Final Resul t [facility] [address] [facility] [place] [address] * (ABNORMAL) Comprehensive metabolic panel (07/29/2024 2:13 AM FACILITY COORDINATOR) Sodium 137 135 - 145 mmol/L Potassium, pl 3.7 3.3 - 4.9 mmol/L [facility] Chloride 105 97 - 110 mmol/L [facility] CO2 21(L) 22 - 32 mmol/L [facility] ([place] Anion gap 11 2 - 15 mmol/L [facility] ([place]) BUN 10 6 - 25 mg/dL [facility] ([place] Creatinine 0.85 0.60 - 1.10 mg/dL [facility] ([place]) Glucose 99 70 - 199 mg/dL [facility] ([place] Comment: Interpretive Data Fasting glucose [...] 16 10 - 45 Units/L [facility] ([place]) Blood 07/29/2024 2:13 AM FACILITY COORDINATOR 07/29/2024 2:22 AM FACILITY COORDINATOR us Janae Moran MD LAB BLOOD ORDERABLES Final Resul t [facility] ([place]) [address] [facility] [place] [address] * Hepatitis C antibody (12/11/2021 11:23 AM CDT) Hep C Ab Nonreactive Nonreactive [facility] Comment:Antibodies to HCV no t detected. Does NOT exclude the possibility of recent exposure to HCV. Blood 12/11/2021 11:2 3 AM CDT 12/11/2021 11:55 AM CDT Jessie Oseguera MD LAB MICROBIOLOGY - GEN ERAL ORDERABLES Edited Result - Final [facility] Department [place] [address] from Last 3 Months or Most Recently Relevant to Health Maintenance Insurance # [place] [address] [employer] [facility] [employer] [facility] [address] [place] [address] Advance Directives For more information, please contact: [phone] * Full Code (Latest Code Status on File) Date Activated Date Inactivated Comments 08/06/2022 11:52 AM 08/08/2022 3:16 PM * Full Code Date Activated Date Inactivated Comments 08/06/2022 7:45 AM 08/06/2022 11:52 AM Full CPR in case of cardiopulmonary arrest Care Teams Flasher Adjuster Relationship Specialty Start Date End Date Yimi Wasserman NP [address] [address] PCP - General Family Medicine 03/31/24 Petra Fabian MD [address] [id number] Resident Obstetrics and Gynecology 06/04/22
--- OUTSIDE RECORDS SUMMARY | 2024-10-19 18:01 | XMS_ITS | Continuity of Care Document ---
Author Organization [facility] Address [address] [place] [address] Phone Care Team Providers Care Tankerman Name Role Phone Unavailable Unavailable Unavailable Advance Directives Directive Yes / No Effective Date File Name No Information Encounters Encounter Description Practice Location Reason(s) For Visit Diagnoses Date Provider Providers Copied on Encounter [facility], [address], [place], [place], [id number], [place] tel:[phone] [facility] S[facility] No Information 0 No Information Family History Family Member Type Diagnosis Age At Onset No Information Payers Payer name Insurance type Covered green party ID Authoriza tion(s) [facility] [id number] Social History Type Description Quantity Date Captured Comments Sex Female Smoking Status No Information Chief Complaint And Reason For Visit No Information History Of Present Illness Encounter Date Complaint History Of Prese nt Illness No Information Instructions Date Instruction Additional Infor mation No Information Assessments Type Assessment Date No Information
--- OUTSIDE RECORDS SUMMARY | 2024-10-19 18:01 | XMS_ITS | Clinical Summary ---
Author Organization [facility] Address [address] [facility] [address] [address] Phone Care Team Providers Care Sales Solutions Associate Name Role Phone Unavailable Primary Care Provider Unavailabl e Encounters Date Type Department Care Team Description 10/07/2024 Telephone [facility] [place] [facility] [place] [address] Carmela Doyle, CLIENT MANAGER [employer]ARGE LAW, GRAPHIC ILLUSTRATOR from Last 3 Months Immunizations Immunization Administration Dates Next Due Influenza Vaccine, Quadrivalent, PF 04/21/2022 Influenza,Split Virus,Trivalent,Injectable,PF MMR Vaccine 08/08/2022 TDAP Vaccine 05/22/2022 Social History Tobacco Use Types Packs/Day Years Used Date Smoking Tobacco: Never Assessed Comments Unknown Sex and Gender Information Value Date Recorded Sex Assigned at Not on file Legal Sex Female 10:00 PM LODGE OFFICER Gender Identity Not on file Sexual Orientation Not on file Plan of Treatment Health Maintenance Due Date Last Done Comments Hepatitis C Virus (HCV) Screening 1995 Hepatitis B Immunization (1 of 3 - 19+ 3-dose series) 11/01/2014 Pap Smear 11/01/2016 SARS-COV-2 Immunization (2023- season) 2024 Respiratory Syncytial Virus (RSV) Immunization (Adult) (1 - 1-dose 75+ series) 11/01/2070 DTaP/Tdap/Td Immunization Discontinued 05/22/2022 Influenza Immunization Completed 5, 04/21/2022 Meningococcal Immunization (ACWY) Aged Out No longer eligible based on patient's age to complete this topic Pneumococcal Immunization Combined Aged Out No longer eligible based on patient's age to complete this topic Rotavirus Immunization Aged Out No lo nger eligible based on patient's age to complete this topic Insurance MEDICAID AETNA [facility]
--- OUTSIDE RECORDS SUMMARY | 2024-10-19 18:01 | XMS_ITS | Encounter Summary ---
Author Organization [employer] Address [address] [place] [address] Care Team Providers Care Sign Letterer Name Role Phone Winston Russell MD Primary Care Provider [phone] Encounter Details Date Type Department Care Team (Late st Contact Info) Description 07/30/[address] [facility] URGENT CARE [address] [place] [address] Royer Ansari DC [address] [place] [address] Chronic right-sided low back pain [...] Primary documented in this encounter Care Teams Sign Letterer Relationship Specialty Start Date End Date Winston Russell MD [address] [place] [address] [address], [place] [address] PCP - General Family Practice 11/21/22 documented as of this encounter
--- OUTSIDE RECORDS SUMMARY | 2024-10-19 18:01 | XMS_ITS | Referral Summary ---
Author Organization [facility] Address [address] [place] [address] Care Team Providers Care Swim Instructor Name Role Phone Petra Fabian MD Unavailable [phone] Yimi Wasserman NP Primary Care Provider [phone] Encounters Date Type Department Care Team Description 10/13/2024 1:30 PM CDT Telemedicine [facility] Virtual Care [address] [place] [address] Savannah Swain NP Facial rash (Primary Dx) 10/13/2024 Patient Self-Triage [facility] Health[facility]/ Physicians [address] [place] [address] Mychart, Generic Provider 08/25/2024 Telephone [facility] H[facility] Floor [address] [place] [address] Chasity Melendez 07/29/2024 3:24 AM DIRECTOR PHONE - 07/29/2024 7:08 AM DIRECTOR PHONE Emergency [facility] Emergency Department [address] [place] [address] Janae Moran MD Palpitations (Primary Dx) Discharge Disposition: Discharge to home or self care from Last 3 Months Allergies Active Allergy [...] 07/02/2024 Assessment & Plan (07/03/2024 10:15 AM DIRECTOR PHONE): New Chronic condition. Reviewed holter monitor report and echo. Start Toprol 50mg every 24 hours. Consider contractor field hauling referral. Thrombocytopenia 07/02/2024 Assessment & Plan (07/02/2024 4:52 PM DIRECTOR PHONE): Improving. Ordered and reviewed CBC- platelets are coming down. Continue aspirin 81mg daily. Acute otitis externa of left ear 07/02/2024 Assessment & Plan (07/02/2024 4:53 PM DIRECTOR PHONE): New. Start Ciprodex otic. Use ear drops [...] 07/02/2024 Assessment & Plan (07/03/2024 10:16 AM DIRECTOR PHONE): Chronic and stable. Start Hydrocortisone cream as [...] 022 Assessment & Plan (07/02/2022 3:14 PM DIRECTOR PHONE): Recommended ATs PRN both eyes (OU) due [...] today, continue below regimen -06/11: Seen in [facility] for ACUNA, resolved with sumatriptan -07/24/22: no headache currently, has had them more frequently over past 1-2 weeks CURRENT REG: mag ox, riboflavin, reglan, benadryl Plan [] monitor sx qV [] BP monitoring as above [] reviewed preE precautions, headache precautions Assessment & Plan (07/03/2024 10:15 AM DIRECTOR PHONE): Uncontrolled. Start toprol XL 50mg daily for [...] headaches. Assessment & Plan (06/04/2022 10:03 AM DIRECTOR PHONE): History of chronic migraine that has been increase in frequency and severity over the past 2 months. Headache hygiene discussed and recommend follow-up with obgyn for monitoring of signs of pre-eclampsia. Blurry vision, bilateral 06/04/2022 Assessment & Plan (03/31/2024 11:49 AM CDT): Recurring/worsening. Repeat brain MRI. Assessment & Plan (07/02/2022 3:16 PM DIRECTOR PHONE): No evidence of ONH changes, no edema [...] prn Assessment & Plan (06/04/2022 10:02 AM DIRECTOR PHONE): Subjective blurry vision for the past 2-8 [...] - neg Counseling [x] Method of delivery: [facility] - 08/06/22 [x] Method of contraception: Desires BTL at time of [facility] - [place] Medicaid consents signed 06/19, partner no longer getting vasectomy [x] Method of feeding: breast, already has breast pump delivered [] Gmat Instructor: [] Car seat Discussed [] PP Depression Counseling Attention deficit disorder 11/21/2021 Overview (07/03/2022): Previously diagnosed with bipolar disorder, anxiety, and depression. [place] use over 1 yr ago. Follows with [facility], online psychiatry platform and dx with ADHD and taking adderall 5mg daily vs BID (prescribed BID). - seen by Psych 05/30 and stopped Adderall Assessment & Plan (03/31/2024 11:55 AM CDT): Manged by [facility] psych with Adderall and wellbutrin. Assessment & [...] that she was following with psychaitry through [facility], states that her psychiatrist is on sabbatical and no one in the office knows her as a patient and refuses to reifll medication. [facility] states that [facility] before - will get records from [facility] prior to any refils, new psych referral placed Closed fracture of proximal phalanx of lesser toe of right foot 10/06/2021 Degeneration of lumbar intervertebral disc 06/22 Overview (03/06/2024): 06/22/2021 - [facility] MRI lumbar/thoracic spine 06/16/21 Arthralgia [...] incidentally found on MRI (late 2020) at [facility] while patient was undergoing work-up for multiple sclerosis - Pt reports 1 yr hx of visual changes, lower extremity neuropathy, weakness, and loss of sensation, multiple falls - Follows with neurology and endocrinology at [facility] - MRI 06/22/2021 with 3mm nonenhancing lesion [...] and repeat Monk's visual field testing w/ survey technician in 4 weeks and for repeat brain MRI pituitary w/wo contrast when able -Seen by survey technician 07/02, normal exam and visual field testing Plan: [] Repeat brain MRI pituitary w/wo contrast - ordered today, given scheduling info [] Shipboard Intelligence Analyst return visit in 2mo for refraction - patient will schedule Assessment & Plan (03/31/2024 11:49 AM CDT): Hx of pituitary microademona. Last MRI done 12/11/2022 with no significant changes from the previous one in 05/18/2022. Repeat MRI. Will check prolactin levels, LH, and cortisol. Assessment & Plan (07/02/2022 3:14 PM DIRECTOR PHONE): Stable eye exam, there are scattered nasal [...] monitor Assessment & Plan (06/04/2022 10:02 AM DIRECTOR PHONE): Brain MRI wo contrast on 05/21 showed [...] with daily ASA on 04/24 - 05/17 [facility]: one MR BP, CBC/CMP wnl, UPC 0.1 - 05/22: reports worsening BLE edema, BUE edema, fascial swelling, ACUNA. Weight stable from last month. CBC/CMP wnl, UPC 0.07 06/05: normotensive 06/11: Seen in [facility] 06/11 for ACUNA; BP normotensive 06/19: Normotensive, [...] # Disposition: Follow up task sent to [facility] scheduling pool. Desires discharge home today. Fibromyalgia 06/04/2022 06/04/2022 Anxiety 06/04/2022 06/04/2022 Elevated blood pressure affe cting , antepartum 05/22/2022 08/21/2022 Overview (07/31/2022): S/p counseling, working diagnosis: cHTN Reports hx of borderline preeclampsia in G2, reports delivered after 39 wks Pt reports good compliance with daily ASA on 04/2409/28/20 ED - 141/84 09/21/21 ED - 140/86 12/11/21 5w3d IOB- 143/79 05/17/22 27w6d [facility] - 143/61, CBC, CMP wnl, UPC 0.1, uric acid wnl 05/22: reports worsening BLE edema, BUE edema, fascial swelling, ACUNA. Weight stable from last month. CBC/CMP wnl, UPC 0.07 06/29: normal BP, CBC, CMP wnl, UPC 0.16 07/03/22 34w4d [facility] - 148/67, CBC/CMP WNL, UPC 0.15 07/24/22: BPs normal to mild range 07/30: [facility] visit to r/o preE, normotensive, CBC/CMP WNL, [...] she is trying to walk. Seen in [facility] 05/17 and 05/28 for symptoms; [facility] C/L/H, no contractions on toco, diagnosed with yeast infection 05/17 and treated with miconazole cream. R/o'ed for ROM on 05/28 US 05/23: EFW 1324g (48%), normal fluid. No mention of uterine window Plan [] strict [facility] precautions given Class 1 obesity due to [...] Never 07/30/2022 How often do you attend episcopalian or pentecostalism serv ices? Never 07/30/2022 Do you belong to any clubs o r organizations such as episcopalian groups, unions, fraternal or athletic groups, or [...] staff should administer the PHQ-9) 4 03/31/2024 [facility] - Occupational [...] place to sleep or slept in a residential (including now)? No 07/30/2022 Kermit Depression Scale Answer Date Recorded Kermit Depression Scale Total 11 09/04/2022 The thought [...] on file Legal Sex Female 4:51 PM DIRECTOR PHONE Gender Identity Female 11/17/2021 1:47 PM CDT Sexual Orientation Straight 12/30/2023 3: 10 AM CDT Last Filed Vital Signs Vital Sign Reading Time Taken Comments Blood Pressure 113/69 07/29/2024 5:15 AM DIRECTOR PHONE Pulse 90 07/29/2024 6:00 AM DIRECTOR PHONE Temperature 37.3 C (99.1 F) 07/29/2024 2:01 AM DIRECTOR PHONE Respiratory Rate 19 07/29/2024 6:00 AM DIRECTOR PHONE Oxygen Saturation 100% 07/29/2024 6:00 AM DIRECTOR PHONE Inhaled Oxygen Concentration - - Weight 51.7 kg (114 lb) 07/29/2024 2:05 AM DIRECTOR PHONE Height 160 cm (5' 3 ) 07/29/2024 2:05 AM DIRECTOR PHONE Body Mass Index 20.19 07/29/2024 2:05 AM DIRECTOR PHONE Plan of Treatment Not on file Procedures Procedure Name Priority Date/Time Associated Diagnosis Comments TROPONIN T HIGH-SENSITIVITY 2-HOUR Timed 07/29/2024 4:45 AM DIRECTOR PHONE XR CHEST 1 VIEW ED 07/29/2024 2:34 AM DIRECTOR PHONE ECG 12-LEAD STAT 07/29/2024 2:17 AM DIRECTOR PHONE EGFR STAT 07/29/2024 2:13 AM DIRECTOR PHONE DIFFERENTIAL AUTO STAT 07/29/2024 2:1 3 AM DIRECTOR PHONE TROPONIN T HIGH-SENSITIVITY SERIES (BASELINE, 2HR, 4HR, 6HR) STAT 07/29/2024 2:13 AM DIRECTOR PHONE COMPREHENSIVE METABOLIC PANEL STAT 07/29/2024 2:13 AM DIRECTOR PHONE CBC WITH AUTO DIFFERENTIAL STAT 07/29/2024 2:13 AM DIRECTOR PHONE HEPATITIS C ANTIBODY Routine 12/11/2021 11:23 AM CDT , unspecified gestational age from Last 3 Months or Most Recently Relevant to Health Maintenance Results * Troponin T high-sensitivity 2-hour (07/29/2024 4:45 AM DIRECTOR PHONE) Trop T hs <6 <=14 ng/L Comment: Interpretive Data For further hscTnT resources including the diagnostic algorithm and an aid in interpretation, copy and paste this link: https://nrl.testcatalog.org/show/hsTrop Current Interpretive Data last revised 2020. Trop T hs delta 0 ng/L [facility] Trop T hs interp Insignificant [facility]) Blood 07/29/2024 4:45 AM DIRECTOR PHONE 07/29/2024 4:51 AM DIRECTOR PHONE us Janae Moran MD LAB BLOOD ORDERABLES Final Resul t [facility] ([place]) 1 [facility] Department [place] [address] * XR Chest 1 Vw Portable (if patient condition/safety warrant portable) (07/29/2024 2:34 AM DIRECTOR PHONE) Anatomical Region Laterality Modality Body, Chest N/A Computed Radiogr aphy 07/29/2024 3:20 AM DIRECTOR PHONE Narrative 07/29/2024 3:20 AM DIRECTOR PHONE EXAM DESCRIPTION: XR CHEST 1 VIEW REASON [...] María Al M.D. SN: SN Report ID: [id number] Reading Location: [id number] Procedure Note María Al MD - 07/29/2024 [...] María Al M.D. SN: SN Report ID: [id number] Reading Location: [id number] us Janae Moran MD IMG XR PROCEDURES Final Result * ECG 12 lead (07/29/2024 2:17 AM DIRECTOR PHONE) 07/29/2024 2:17 AM DIRECTOR PHONE Narrative [facility] - 07/29/2024 6:57 AM DIRECTOR PHONE Vent Rate: 105 bpm RR Interval: 570 msec ND Interval: 124 msec QRS Duration: 115 msec QT Interval: 339 msec QTC Interval: 400 msec P-R-T [place]: 73 - 57 - 40 degrees IMPRESSION: SINUS TACHYCARDIA INCOMPLETE RIGHT BUNDLE BRANCH BLOCK [90+ ms QRS DURATION, TERMINAL R IN V1/V2, 40+ ms S IN I/aVL/V4/V5/V6] ABNORMAL RHYTHM ECG NO CHANGE FROM PREVIOUS TRACING NOTED Electronically Signed By: Víctor Matson MD Janae Moran MD ECG ORDERABLES Final Result [facility] * Troponin T high-sensitivity series (baseline, 2hr, 4hr, 6hr) (07/29/2024 2:13 AM DIRECTOR PHONE) Trop T hs <6 <=14 ng/L Comment: Interpretive Data For further hscTnT resources including the diagnostic algorithm and an aid in interpretation, copy and paste this link: https://nrl.testcatalog.org/show/hsTrop Current Interpretive Data last revised 2020. Blood 07/29/2024 2:13 AM DIRECTOR PHONE 07/29/2024 2:22 AM DIRECTOR PHONE us Janae Moran MD LAB BLOOD ORDERABLES Final Resul t Performing Organization Address City/[facility]/ZIP Co de Phone Number [facility] ([place] 1 [facility] [place] [address] * eGFR (07/29/2024 2:13 AM DIRECTOR PHONE) Pathologist [facility] eGFR >90 >=60 mL/min/1. 73 m2 Comment: [...] last reviewed 2021. Blood 07/29/2024 2:13 AM DIRECTOR PHONE 07/29/2024 2:22 AM DIRECTOR PHONE us Janae Moran MD LAB BLOOD ORDERABLES Final Resul t [facility] ([facility]) 1 [facility] Department [place] [address] * Differential, auto (07/29/2024 2:13 AM DIRECTOR PHONE) Neutrophil abs 4.1 1.5 - 6.5 K/cumm Imm gran abs 0.0 0.0 - 0.1 K/cumm [facility] ([place]) Lymphocyte abs 2.0 0.8 - 3.3 K/cumm [facility] ([place]) Monocyte abs 0.4 0.2 - 0.8 K/cumm [facility] ([place]) Eosinophil abs 0.2 0.0 - 0.5 K/cumm [facility] ([place]) Basophil abs 0.0 0.0 - 0.1 K/cumm [facility] ([place]) Neutrophil pct 61.2 % [facility] ([place]) Comment: Interpretive Data Percent cell count reference ranges are not reported, since discordance with absolute values may lead to misinterpretation of CBC data. Current Interpretive Data was last revised on 2017. Imm gran pct 0.1 % [facility] ([place]) Comment: Interpretive Data Percent cell count reference ranges are not reported, since discordance with absolute values may lead to misinterpretation of CBC data. Current Interpretive Data was last revised on 2017. Lymphocyte pct 29.0 % [facility] ([place] Comment: Interpretive Data Percent cell count reference ranges are not reported, since discordance with absolute values may lead to misinterpretation of CBC data. Current Interpretive Data was last revised on 2017. Monocyte pct 6.4 % [facility] ([place]) Comment: Interpretive Data Percent cell count reference ranges are not reported, since discordance with absolute values may lead to misinterpretation of CBC data. Current Interpretive Data was last revised on 2017. Eosinophil pct 2.7 % [facility] ([place]) Comment: Interpretive Data Percent cell count reference ranges are not reported, since discordance with absolute values may lead to misinterpretation of CBC data. Current Interpretive Data was last revised on 2017. Basophil pct 0.6 % [facility] ([place]) Comment: Interpretive Data Percent cell count reference ranges are not reported, since discordance with absolute values may lead to misinterpretation of CBC data. Current Interpretive Data was last revised on 2017. Blood 07/29/2024 2:13 AM DIRECTOR PHONE 07/29/2024 2:22 AM DIRECTOR PHONE us Janae Moran MD LAB BLOOD ORDERABLES Final Resul t [facility] ([facility] 1 [facility] [place] [address] * (ABNORMAL) CBC with auto differential (07/29/2024 2:13 AM DIRECTOR PHONE) WBC 6.7 3.8 - 9.9 K/cumm Hgb [...] - 0.01 K/cumm [facility] ([facility]) Blood Venous blood specimen / Unknown 07/29/2024 2:13 AM DIRECTOR PHONE 07/29/2024 2:22 AM DIRECTOR PHONE us Janae Moran MD LAB BLOOD ORDERABLES Final Resul t [facility] ([facility]) 1 [facility] [place] [address] * (ABNORMAL) Comprehensive metabolic panel (07/29/2024 2:13 AM DIRECTOR PHONE) Sodium 137 135 - 145 mmol/L Potassium, [...] [facility]) Blood 07/29/2024 2:13 AM DIRECTOR PHONE 07/29/2024 2:22 AM DIRECTOR PHONE us Janae Moran MD LAB BLOOD ORDERABLES Final Resul t [facility] ([place] 1 [facility] Department [place] [address] * Hepatitis C antibody (12/11/2021 11:23 AM CDT) Hep C Ab Nonreactive Nonreactive [facility] Comment:Antibodies to HCV no t detected. Does NOT exclude the possibility of recent exposure to HCV. Blood 12/11/2021 11:2 3 AM CDT 12/11/2021 11:55 AM CDT Jessie Oseguera MD LAB MICROBIOLOGY - GEN ERAL ORDERABLES Edited Result - Final [facility] [place] [address] from Last 3 Months or Most Recently Relevant to Health Maintenance [place] [address] [place] [address] [facility] AETNA [facility] Advance Directives For more information, please contact: [phone] * Full Code (Latest Code Status on File) Date Activated Date Inactivated Comments 08/06/2022 11:52 AM 08/08/2022 3:16 PM * Full Code Date Activated Date Inactivated Comments 08/06/2022 7:45 AM 08/06/2022 11:52 AM Full CPR in case of cardiopulmonary arrest Care Teams Swim Instructor Relationship Specialty Start Date End Date Yimi Wasserman NP [address] [place] [address] PCP - General Family Medicine 03/31/24 Petra Fabian MD [address] [place] [address] Resident Obstetrics and Gynecology 06/04/22
--- OUTSIDE RECORDS SUMMARY | 2024-10-19 18:01 | XMS_ITS | Clinical Summary ---
Author Organization [facility] Address [address] [place] [address] Care Team Providers Care Hand Stemmer Name Role Phone Winston Russell MD Primary Care Provider [phone] Medications acetaminophen (TYLENOL) 500 mg Capsule Take [...] with daily ASA on 04/24 - 05/17 [facility]: one MR BP, CBC/CMP wnl, UPC 0.1 - 05/22: reports worsening BLE edema, BUE edema, fascial swelling, CAUNA. Weight stable from last month. CBC/CMP wnl, UPC 0.07 06/05: normotensive 06/11: Seen in [facility] 06/11 for ACUNA; BP normotensive 06/19: [...] and repeat Monk's visual field testing w/ transformer tester in 4 weeks and for repeat brain MRI pituitary w/wo contrast when able -Seen by transformer tester 07/02, normal exam and visual field testing Plan: [] Repeat brain MRI pituitary w/wo contrast - ordered today, given scheduling info [] Director Of First Impressions return visit in 2mo for refraction - [...] today, continue below regimen -06/11: Seen in [facility] for ACUNA, resolved with sumatriptan -07/24/22: [...] - neg Counseling [x] Method of delivery: [facility] - 08/06/22 [x] Method of contraception: Desires BTL at time of [facility] Medicaid consents signed 06/19, partner no longer getting vasectomy [x] Method of feeding: breast, already has breast pump delivered [] Electronics Mechanic: [] Car seat Discussed [] PP Depression Counseling Attention deficit disorder 11/21/2021 Overview (11/21/2022): Previously diagnosed with bipolar disorder, anxiety, and depression. [place] use over 1 yr ago. Follows with [facility], online psychiatry platform and dx with ADHD and taking adderall 5mg daily vs BID (prescribed BID). - seen by Psych 05/30 and stopped Adderall Last Assessment & Plan: Following with psychaitry Continue aderral 10 mg bid, wellbutrin 150 mg every day as per psychaitry Encounters Date Type Department Care Team Description 07/30/2024 [facility] URGENT CARE [address] [place] [id number] Royer Ansari, [place] Chronic right-sided low back [...] series) 06/03/2014 05/06/2014 CERVICAL CANCER SCREENING 11/01/2016 HPV/Cotest (21-29) 11/01/2016 PAP SMEAR 11/01/2016 PAP SMEAR 11/01/2016 HPV VACCINES (3 - 3-dose series) 10/12/2021 06/09/20 21, 04/14/2021 INFLUENZA VACCINE (#1) 2024 2, 04/14/2021, 05/06/2014 DTAP/TDAP/TD VACCINES (3 - T d or Tdap) 05/22/2032 05/22/2022, 05/06/2014 Insurance [facility] MEDICAID Care Teams Hand Stemmer Relationship Specialty Start Date End Date Winston Russell MD [address] [place] [address] PCP - General Family Practice 11/21/22
[2024-10-19 18:18] VITALS: BP 115/76; PULSE 95; RESP 16; TEMP 36.8; O2SAT 100
--- NOTE | 2024-10-19 18:19 | ED.LOWEXIN ---
HPI - Extremity Injury (Lower) General Chief Complaint: Extremity Injury, Lower Stated Complaint: left ankle pain Time Seen by Provider: 10/19/24 18:15 Focused HPI: Patient is a 28 year old female to the ER with left ankle pain. She reports 2 days ago her 40 lb toddler was jumping on her left ankle. Patient reports she has had multiple surgeries on her left ankle and is concerned that tonsillar re-injured something. She reports she has been icing the site in taking Tylenol and ibuprofen for pain control. Patient reports she has been trying to a walk it off but the pain and swelling have become worse over the past 2 days. GENERAL: Well-appearing, well-nourished, and in no acute distress. HEAD: Normocephalic, atraumatic. CHEST: Clear to auscultation. ?No respiratory distress. HEART: Regular rate and rhythm.? NEURO: ?Alert and oriented x3. Patient screened in triage and initial orders placed.? ?Additional care and disposition to be based upon?diagnostic testing and treatment. Related Data Home Medications ?Medication ?Instructions ?Recorded ?Confirmed ?Last Taken ?Type bupropion HCl 150 mg 24 hr tablet, 150 mg PO QAM 11/29/23 11/29/23 1 Day Ago History extended release ~11/28/23 dextroamphetamine-amphetamine 10 10 mg PO BID 11/29/23 11/29/23 1 Day Ago History mg tablet ~11/28/23 Allergies Allergy/AdvReac Type Severity Reaction Status Date / Time No Known Allergies Allergy Verified 10/19/24 18:02 [facility] Past Medical History Medical History (Updated 10/20/24 @ 00:00 by Gordy Torre) Fibromyalgia Surgical History Surgical History (Updated 10/19/24 @ 19:42 by Dre Batista MD) History of ankle surgery Social History Social History Smoking status: Current every day smoker Tobacco type: e-cigarettes/vaping Additional smoking assessment comments: MAINLY DURING NAPTIME, NOT VERY OFTEN Alcohol intake: never Substance use: current Substance use type: marijuana Other substance usage details: SMOKE Last use: 11/29/2023 Do You Feel Safe in your Home?: Yes Lack of Transportation: No Lack of Food: Never True Current Housing: I Have Housing Concerned About Future Housing: No Difficulty Paying Gas/Electric Bills: No Difficulty Paying for Meds: No Currently Unemployed: No Education: Trade/Vocational Certificate Difficulty w/ Childcare or Family Care: No Spiritual care concerns: No Course Vital Signs Vital signs: Vital Signs Temperature 36.8 C 10/19/24 18:18 Pulse Rate 95 10/19/24 18:18 Respiratory Rate 16 10/19/24 18:18 Blood Pressure 115/76 10/19/24 18:18 Pulse Oximetry 100 10/19/24 18:18 Temperature 36.8 C 10/19/24 18:18 Pulse Rate 95 10/19/24 18:18 Respiratory Rate 16 10/19/24 18:18 Blood Pressure 115/76 10/19/24 18:18 Pulse Oximetry 100 10/19/24 18:18 Discharge Plan Discharge Clinical Impression: Ankle sprain Patient Disposition: Home, Self-Care Condition: Stable Instructions: Ankle Sprain (ED), P.R.I.C.E. Treatment (ED) Additional Instructions: Return the ER if you have new injury, have chest pain and shortness of breath, or have additional concerns. Patient Language: Citizen Of [place] Prescriptions: New naproxen 375 mg tablet 375 mg PO BID Qty: 14 0RF No Action dextroamphetamine-amphetamine 10 mg tablet 10 mg PO BID bupropion HCl 150 mg tablet extended release 24 hr 150 mg PO QAM Follow-up/Referrals: Iban Turcios MD [Physician] - 1 Week PHYSICIAN,JEWELRY INSPECTOR [Primary Care Provider] - Time of Disposition: 02:43
[2024-10-19] MEDS: KETOROLAC (*BKC) 60 MG/2 ML VIAL IM (18:44)
--- OUTSIDE RECORDS SUMMARY | 2024-10-19 19:37 | XMS_ITS | Continuity of Care Document ---
Author Organization [facility] Address [address] [place] [address] Phone Care Team Providers Care Chemical Processing Laborer Name Role Phone Unavailable Unavailable Unavailable Advance Directives Directive Yes / No Effective Date File Name No Information Encounters Encounter Description Practice Location Reason(s) For Visit Diagnoses Date Provider Providers Copied on Encounter [facility], [address], [place], [place], [id number], [place] tel:[phone] [facility] No Information 0 No Information Family History Family Member Type Diagnosis Age At Onset No Information Payers Payer name Insurance type Covered green party ID Authoriza tion(s) [facility] [id number] Social History Type Description Quantity Date Captured Comments Sex Female Smoking Status No Information Chief Complaint And Reason For Visit No Information History Of Present Illness Encounter Date Complaint History Of Prese nt Illness No Information Instructions Date Instruction Additional Infor mation No Information Assessments Type Assessment Date No Information
--- OUTSIDE RECORDS SUMMARY | 2024-10-19 19:37 | XMS_ITS | Referral Summary ---
Author Organization [facility] Address [address] [place] [address] Care Team Providers Care Bridge Repairer Name Role Phone Petra Fabian MD Unavailable [phone] Yimi Wasserman NP Primary Care Provider [phone] Encounters Date Type Department Care Team Description 10/13/2024 1:30 PM CDT Telemedicine [facility] Virtual Care [address] [place] [address] Savannah Swain NP Facial rash (Primary Dx) 10/13/2024 Patient Self-Triage [facility] [address] [place] [address] Mychart, Generic Provider 08/25/2024 Telephone [facility] Hematology [facility] Floor [address] [place] [address] Chasity Melendez 07/29/2024 3:24 AM R D INTERN - 07/29/2024 7:08 AM R D INTERN Emergency [facility] Emergency Department [address] [place] [address] Janae Moran MD Palpitations (Primary Dx) Discharge [...] 07/02/2024 Assessment & Plan (07/03/2024 10:15 AM R D INTERN): New Chronic condition. Reviewed holter monitor report and echo. Start Toprol 50mg every 24 hours. Consider epitaxial reactor operator referral. Thrombocytopenia 07/02/2024 Assessment & Plan (07/02/2024 4:52 PM R D INTERN): Improving. Ordered and reviewed CBC- platelets are coming down. Continue aspirin 81mg daily. Acute otitis externa of left ear 07/02/2024 Assessment & Plan (07/02/2024 4:53 PM R D INTERN): New. Start Ciprodex otic. Use ear drops [...] 07/02/2024 Assessment & Plan (07/03/2024 10:16 AM R D INTERN): Chronic and stable. Start Hydrocortisone cream as [...] 022 Assessment & Plan (07/02/2022 3:14 PM R D INTERN): Recommended ATs PRN both eyes (OU) due [...] today, continue below regimen -06/11: Seen in [facility] for CAUNA, resolved with sumatriptan -07/24/22: no headache currently, has had them more frequently over past 1-2 weeks CURRENT REG: mag ox, riboflavin, reglan, benadryl Plan [] monitor sx qV [] BP monitoring as above [] reviewed preE precautions, headache precautions Assessment & Plan (07/03/2024 10:15 AM R D INTERN): Uncontrolled. Start toprol XL 50mg daily for [...] or bologna; no MSG as found in irish food; no more than 1/2 banana a [...] headaches. Assessment & Plan (06/04/2022 10:03 AM R D INTERN): History of chronic migraine that has been increase in frequency and severity over the past 2 months. Headache hygiene discussed and recommend follow-up with obgyn for monitoring of signs of pre-eclampsia. Blurry vision, bilateral 06/04/2022 Assessment & Plan (03/31/2024 11:49 AM CDT): Recurring/worsening. Repeat brain MRI. Assessment & Plan (07/02/2022 3:16 PM R D INTERN): No evidence of ONH changes, no edema [...] prn Assessment & Plan (06/04/2022 10:02 AM R D INTERN): Subjective blurry vision for the past 2-8 [...] - neg Counseling [x] Method of delivery: [facility] - 08/06/22 [x] Method of contraception: Desires BTL at time of [facility] - [place] Medicaid consents signed 06/19, partner no longer getting vasectomy [x] Method of feeding: breast, already has breast pump delivered [] Surgery Nurse: [] Car seat Discussed [] PP Depression Counseling Attention deficit disorder 11/21/2021 Overview (07/03/2022): Previously diagnosed with bipolar disorder, anxiety, and depression. [place] use over 1 yr ago. Follows with [...] and repeat Monk's visual field testing w/ family preservation worker in 4 weeks and for repeat brain MRI pituitary w/wo contrast when able -Seen by family preservation worker 07/02, normal exam and visual field testing Plan: [] Repeat brain MRI pituitary w/wo contrast - ordered today, given scheduling info [] Ruling Technician return visit in 2mo for refraction - patient will schedule Assessment & Plan (03/31/2024 11:49 AM CDT): Hx of pituitary microademona. Last MRI done 12/11/2022 with no significant changes from the previous one in 05/18/2022. Repeat MRI. Will check prolactin levels, LH, and cortisol. Assessment & Plan (07/02/2022 3:14 PM R D INTERN): Stable eye exam, there are scattered nasal [...] monitor Assessment & Plan (06/04/2022 10:02 AM R D INTERN): Brain MRI wo contrast on 05/21 showed [...] with daily ASA on 04/24 - 05/17 [facility]: one MR BP, CBC/CMP wnl, UPC 0.1 - 05/22: reports worsening BLE edema, BUE edema, fascial swelling, ACUNA. Weight stable from last month. CBC/CMP wnl, UPC 0.07 06/05: normotensive 06/11: Seen in [facility] 06/11 for ACUNA; BP normotensive 06/19: [...] # Disposition: Follow up task sent to [facility] scheduling pool. Desires discharge home today. Fibromyalgia 06/04/2022 06/04/2022 Anxiety 06/04/2022 06/04/2022 Elevated blood pressure affe cting , antepartum 05/22/2022 08/21/2022 Overview (07/31/2022): S/p counseling, working diagnosis: cHTN Reports hx of borderline preeclampsia in G2, reports delivered after 39 wks Pt reports good compliance with daily ASA on 04/2409/28/20 ED - 141/84 09/21/21 ED - 140/86 12/11/21 5w3d IOB- 143/79 05/17/22 27w6d [facility] - 143/61, CBC, CMP wnl, UPC 0.1, uric acid wnl 05/22: reports worsening BLE edema, BUE edema, fascial swelling, ACUNA. Weight stable from last month. CBC/CMP wnl, UPC 0.07 06/29: normal BP, CBC, CMP wnl, UPC 0.16 07/03/22 34w4d [facility] - 148/67, CBC/CMP WNL, UPC 0.15 07/24/22: BPs normal to mild range 07/30: [facility] visit to r/o preE, normotensive, CBC/CMP [...] she is trying to walk. Seen in [facility] 05/17 and 05/28 for symptoms; SVE C/L/H, no contractions on toco, diagnosed with yeast infection 05/17 and treated with miconazole cream. R/o'ed for ROM on 05/28 US 05/23: EFW 1324g (48%), normal fluid. No mention of uterine window Plan [] strict [facility] precautions given Class 1 obesity due [...] Never 07/30/2022 How often do you attend religious or scientology serv ices? Never 07/30/2022 Do you belong to any clubs o r organizations such as religious groups, unions, fraternal or athletic groups, or [...] staff should administer the PHQ-9) 4 03/31/2024 [facility] - Occupational Stress [...] place to sleep or slept in a fci (including now)? No 07/30/2022 Husser Depression Scale Answer Date Recorded Husser Depression Scale Total 11 09/04/2022 The thought [...] on file Legal Sex Female 4:51 PM R D INTERN Gender Identity Female 11/17/2021 1:47 PM CDT Sexual Orientation Straight 12/30/2023 3: 10 AM CDT Last Filed Vital Signs Vital Sign Reading Time Taken Comments Blood Pressure 113/69 07/29/2024 5:15 AM R D INTERN Pulse 90 07/29/2024 6:00 AM R D INTERN Temperature 37.3 C (99.1 F) 07/29/2024 2:01 AM R D INTERN Respiratory Rate 19 07/29/2024 6:00 AM R D INTERN Oxygen Saturation 100% 07/29/2024 6:00 AM R D INTERN Inhaled Oxygen Concentration - - Weight 51.7 kg (114 lb) 07/29/2024 2:05 AM R D INTERN Height 160 cm (5' 3 ) 07/29/2024 2:05 AM R D INTERN Body Mass Index 20.19 07/29/2024 2:05 AM R D INTERN Plan of Treatment Not on file Procedures Procedure Name Priority Date/Time Associated Diagnosis Comments TROPONIN T HIGH-SENSITIVITY 2-HOUR Timed 07/29/2024 4:45 AM R D INTERN XR CHEST 1 VIEW ED 07/29/2024 2:34 AM R D INTERN ECG 12-LEAD STAT 07/29/2024 2:17 AM R D INTERN EGFR STAT 07/29/2024 2:13 AM R D INTERN DIFFERENTIAL AUTO STAT 07/29/2024 2:1 3 AM R D INTERN TROPONIN T HIGH-SENSITIVITY SERIES (BASELINE, 2HR, 4HR, 6HR) STAT 07/29/2024 2:13 AM R D INTERN COMPREHENSIVE METABOLIC PANEL STAT 07/29/2024 2:13 AM R D INTERN CBC WITH AUTO DIFFERENTIAL STAT 07/29/2024 2:13 AM R D INTERN HEPATITIS C ANTIBODY Routine 12/11/2021 11:23 AM CDT , unspecified gestational age from Last 3 Months or Most Recently Relevant to Health Maintenance Results * Troponin T high-sensitivity 2-hour (07/29/2024 4:45 AM R D INTERN) Trop T hs <6 <=14 ng/L Comment: Interpretive Data For further hscTnT resources including the diagnostic algorithm and an aid in interpretation, copy and paste this link: https://nrl.testcatalog.org/show/hsTrop Current Interpretive Data last revised 2020. Trop T hs delta 0 ng/L [facility] Trop T hs interp Insignificant [facility] Blood 07/29/2024 4:45 AM R D INTERN 07/29/2024 4:51 AM R D INTERN us Janae Moran MD LAB BLOOD ORDERABLES Final Resul t [facility] ([place]) [address] [facility] Department [place] [address] * XR Chest 1 Vw Portable (if patient condition/safety warrant portable) (07/29/2024 2:34 AM R D INTERN) Anatomical Region Laterality Modality Body, Chest N/A Computed Radiogr aphy 07/29/2024 3:20 AM R D INTERN Narrative 07/29/2024 3:20 AM R D INTERN EXAM DESCRIPTION: XR CHEST 1 VIEW REASON [...] María Al M.D. SN: SN Report ID: [id number] Reading Location: [id number] Procedure Note María Al MD - 07/29/2024 [...] María Al M.D. SN: SN Report ID: [id number] Reading Location: [id number] us Janae Moran MD IMG XR PROCEDURES Final Result * ECG 12 lead (07/29/2024 2:17 AM R D INTERN) 07/29/2024 2:17 AM R D INTERN Narrative [facility] - 07/29/2024 6:57 AM R D INTERN Vent Rate: 105 bpm RR Interval: 570 msec MT Interval: 124 msec QRS Duration: 115 msec QT Interval: 339 msec QTC Interval: 400 msec P-R-T Lee: 73 - 57 - 40 degrees IMPRESSION: SINUS TACHYCARDIA INCOMPLETE RIGHT BUNDLE BRANCH BLOCK [90+ ms QRS DURATION, TERMINAL R IN V1/V2, 40+ ms S IN I/aVL/V4/V5/V6] ABNORMAL RHYTHM ECG NO CHANGE FROM PREVIOUS TRACING NOTED Electronically Signed By: Víctor Matson MD Janae Moran MD ECG ORDERABLES Final Result [facility] * Troponin T high-sensitivity series (baseline, 2hr, 4hr, 6hr) (07/29/2024 2:13 AM R D INTERN) Trop T hs <6 <=14 ng/L Comment: Interpretive Data For further hscTnT resources including the diagnostic algorithm and an aid in interpretation, copy and paste this link: https://nrl.testcatalog.org/show/hsTrop Current Interpretive Data last revised 2020. Blood 07/29/2024 2:13 AM R D INTERN 07/29/2024 2:22 AM R D INTERN us Janae Moran MD LAB BLOOD ORDERABLES Final Resul t Performing Organization Address City/[facility]/ZIP Co de Phone Number [facility] ([place]) [address] [place] [address] * eGFR (07/29/2024 2:13 AM R D INTERN) Pathologist [facility] eGFR >90 >=60 mL/min/1. 73 m2 Comment: [...] last reviewed 2021. Blood 07/29/2024 2:13 AM R D INTERN 07/29/2024 2:22 AM R D INTERN us Janae Moran MD LAB BLOOD ORDERABLES Final Resul t [facility] ([facility] [address] [facility] Department [place] [address] * Differential, auto (07/29/2024 2:13 AM R D INTERN) Neutrophil abs 4.1 1.5 - 6.5 K/cumm Imm gran abs 0.0 0.0 - 0.1 K/cumm [facility] ([place]) Lymphocyte abs 2.0 0.8 - 3.3 K/cumm [facility] ([place]) Monocyte abs 0.4 0.2 - 0.8 K/cumm [facility] ([place]) Eosinophil abs 0.2 0.0 - 0.5 K/cumm [facility] ([place]) Basophil abs 0.0 0.0 - 0.1 K/cumm [facility] ([place]) Neutrophil pct 61.2 % [facility] ([place] Comment: Interpretive Data Percent cell count reference ranges are not reported, since discordance with absolute values may lead to misinterpretation of CBC data. Current Interpretive Data was last revised on 2017. Imm gran pct 0.1 % [facility] ([place] Comment: Interpretive Data Percent cell count reference ranges are not reported, since discordance with absolute values may lead to misinterpretation of CBC data. Current Interpretive Data was last revised on 2017. Lymphocyte pct 29.0 % [facility] Comment: Interpretive Data Percent cell count reference ranges are not reported, since discordance with absolute values may lead to misinterpretation of CBC data. Current Interpretive Data was last revised on 2017. Monocyte pct 6.4 % [facility] ([place]) Comment: Interpretive Data Percent cell count reference ranges are not reported, since discordance with absolute values may lead to misinterpretation of CBC data. Current Interpretive Data was last revised on 2017. Eosinophil pct 2.7 % [facility] ([place] Comment: Interpretive Data Percent cell count reference ranges are not reported, since discordance with absolute values may lead to misinterpretation of CBC data. Current Interpretive Data was last revised on 2017. Basophil pct 0.6 % [facility] ([place]) Comment: Interpretive Data Percent cell count reference ranges are not reported, since discordance with absolute values may lead to misinterpretation of CBC data. Current Interpretive Data was last revised on 2017. Blood 07/29/2024 2:13 AM R D INTERN 07/29/2024 2:22 AM R D INTERN us Janae Moran MD LAB BLOOD ORDERABLES Final Resul t [facility] ([facility] [address] [place] [address] * (ABNORMAL) CBC with auto differential (07/29/2024 2:13 AM R D INTERN) WBC 6.7 3.8 - 9.9 K/cumm Hgb [...] blood specimen / Unknown 07/29/2024 2:13 AM R D INTERN 07/29/2024 2:22 AM R D INTERN us Janae Moran MD LAB BLOOD ORDERABLES Final Resul t [facility] ([facility] [address] [place] [address] * (ABNORMAL) Comprehensive metabolic panel (07/29/2024 2:13 AM R D INTERN) Sodium 137 135 - 145 mmol/L Potassium, [...] [facility] Blood 07/29/2024 2:13 AM R D INTERN 07/29/2024 2:22 AM R D INTERN us Janae Moran MD LAB BLOOD ORDERABLES Final Resul t [facility] ([place] [address] [facility] Department [place] [address] * Hepatitis C antibody (12/11/2021 11:23 AM CDT) Hep C Ab Nonreactive Nonreactive [facility] Comment:Antibodies to HCV no t detected. Does NOT exclude the possibility of recent exposure to HCV. Blood 12/11/2021 11:2 3 AM CDT 12/11/2021 11:55 AM CDT Jessie Oseguera MD LAB MICROBIOLOGY - GEN ERAL ORDERABLES Edited Result - Final [facility] [place] [address] from Last 3 Months or Most Recently Relevant to Health Maintenance [place] [address] [place] [address] [facility] [employer]ET[employer] BETTER [facility] Advance Directives For more information, please contact: [phone] * Full Code (Latest Code Status on File) Date Activated Date Inactivated Comments 08/06/2022 11:52 AM 08/08/2022 3:16 PM * Full Code Date Activated Date Inactivated Comments 08/06/2022 7:45 AM 08/06/2022 11:52 AM Full CPR in case of cardiopulmonary arrest Care Teams Bridge Repairer Relationship Specialty Start Date End Date Yimi Wasserman NP [address] [place] [address] PCP - General Family Medicine 03/31/24 Petra Fabian MD [address] [place] [address] Resident Obstetrics and Gynecology 06/04/22
--- OUTSIDE RECORDS SUMMARY | 2024-10-19 19:37 | XMS_ITS | Clinical Summary ---
Author Organization [facility] Address [address] [facility] [address] [address] Phone Care Team Providers Care Casino Games Dealer Name Role Phone Unavailable Primary Care Provider Unavailabl e Encounters Date Type Department Care Team Description 10/07/2024 Telephone [facility] [facility] [address] Carmela Doyle, SOLVENT PROCESS EXTRACTOR OPERATOR, TAKE DOWN SORTER from Last 3 Months Immunizations Immunization Administration Dates Next Due Influenza Vaccine, Quadrivalent, PF 04/21/2022 Influenza,Split Virus,Trivalent,Injectable,PF MMR Vaccine 08/08/2022 TDAP Vaccine 05/22/2022 Social History Tobacco Use Types Packs/Day Years Used Date Smoking Tobacco: Never Assessed Comments Unknown Sex and Gender Information Value Date Recorded Sex Assigned at Not on file 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
--- OUTSIDE RECORDS SUMMARY | 2024-10-19 19:37 | XMS_ITS | Clinical Summary ---
Author Organization [facility] Address [address] [place] [address] Care Team Providers Care Cook Pickled Meat Name Role Phone Petra Fabian MD Unavailable [phone] Yimi Wasserman NP Primary Care Provider [phone] Allergies Active Allergy Reactions Criticality Noted Date [...] 07/02/2024 Assessment & Plan (07/03/2024 10:15 AM ACCOUNT UNDERWRITER): New Chronic condition. Reviewed holter monitor report and echo. Start Toprol 50mg every 24 hours. Consider payroll machine operator referral. Thrombocytopenia 07/02/2024 Assessment & Plan (07/02/2024 4:52 PM ACCOUNT UNDERWRITER): Improving. Ordered and reviewed CBC- platelets are coming down. Continue aspirin 81mg daily. Acute otitis externa of left ear 07/02/2024 Assessment & Plan (07/02/2024 4:53 PM ACCOUNT UNDERWRITER): New. Start Ciprodex otic. Use ear drops [...] 07/02/2024 Assessment & Plan (07/03/2024 10:16 AM ACCOUNT UNDERWRITER): Chronic and stable. Start Hydrocortisone cream as [...] 022 Assessment & Plan (07/02/2022 3:14 PM ACCOUNT UNDERWRITER): Recommended ATs PRN both eyes (OU) due [...] today, continue below regimen -06/11: Seen in [facility] for ACUNA, resolved with sumatriptan -07/24/22: no headache currently, has had them more frequently over past 1-2 weeks CURRENT REG: mag ox, riboflavin, reglan, benadryl Plan [] monitor sx qV [] BP monitoring as above [] reviewed preE precautions, headache precautions Assessment & Plan (07/03/2024 10:15 AM ACCOUNT UNDERWRITER): Uncontrolled. Start toprol XL 50mg daily for [...] or bologna; no MSG as found in indonesian food; no more than 1/2 banana a [...] headaches. Assessment & Plan (06/04/2022 10:03 AM ACCOUNT UNDERWRITER): History of chronic migraine that has been increase in frequency and severity over the past 2 months. Headache hygiene discussed and recommend follow-up with obgyn for monitoring of signs of pre-eclampsia. Blurry vision, bilateral 06/04/2022 Assessment & Plan (03/31/2024 11:49 AM CDT): Recurring/worsening. Repeat brain MRI. Assessment & Plan (07/02/2022 3:16 PM ACCOUNT UNDERWRITER): No evidence of ONH changes, no edema [...] prn Assessment & Plan (06/04/2022 10:02 AM ACCOUNT UNDERWRITER): Subjective blurry vision for the past 2-8 [...] - neg Counseling [x] Method of delivery: RUST - 08/06/22 [x] Method of contraception: Desires BTL at time of [facility] Medicaid consents signed 06/19, partner no longer getting vasectomy [x] Method of feeding: breast, already has breast pump delivered [] Spindle Carver: [] Car seat Discussed [] PP Depression Counseling Attention deficit disorder 11/21/2021 Overview (07/03/2022): Previously diagnosed with bipolar disorder, anxiety, and depression. [place] use over 1 yr ago. Follows with [facility], online psychiatry platform and dx with ADHD and taking adderall 5mg daily vs BID (prescribed BID). - seen by Psych 05/30 and stopped Adderall Assessment & Plan (03/31/2024 11:55 AM CDT): Manged by [facility] psych with Adderall and wellbutrin. Assessment & [...] that she was following with psychaitry through [place], states that her psychiatrist is on sabbatical and no one in the office knows her as a patient and refuses to reifll medication. [facility] states that [facility] before - will get records from [facility] prior to any refils, new psych referral [...] incidentally found on MRI (late 2020) at [facility] while patient was undergoing work-up for multiple sclerosis - Pt reports 1 yr hx of visual changes, lower extremity neuropathy, weakness, and loss of sensation, multiple falls - Follows with neurology and endocrinology at [place] - MRI 06/22/2021 with 3mm nonenhancing lesion [...] and repeat Monk's visual field testing w/ wind turbine machinist in 4 weeks and for repeat brain MRI pituitary w/wo contrast when able -Seen by wind turbine machinist 07/02, normal exam and visual field testing Plan: [] Repeat brain MRI pituitary w/wo contrast - ordered today, given scheduling info [] Property Management Accountant return visit in 2mo for refraction - patient will schedule Assessment & Plan (03/31/2024 11:49 AM CDT): Hx of pituitary microademona. Last MRI done 12/11/2022 with no significant changes from the previous one in 05/18/2022. Repeat MRI. Will check prolactin levels, LH, and cortisol. Assessment & Plan (07/02/2022 3:14 PM ACCOUNT UNDERWRITER): Stable eye exam, there are scattered nasal [...] monitor Assessment & Plan (06/04/2022 10:02 AM ACCOUNT UNDERWRITER): Brain MRI wo contrast on 05/21 showed [...] with daily ASA on 04/24 - 05/17 [facility]: one MR BP, CBC/CMP wnl, UPC 0.1 - 05/22: reports worsening BLE edema, BUE edema, fascial swelling, ACUNA. Weight stable from last month. CBC/CMP wnl, UPC 0.07 06/05: normotensive 06/11: Seen in [facility] 06/11 for ACUNA; BP normotensive 06/19: [...] # Disposition: Follow up task sent to [facility] scheduling pool. Desires discharge home today. Fibromyalgia 06/04/2022 06/04/2022 Anxiety 06/04/2022 06/04/2022 Elevated blood pressure affe cting , antepartum 05/22/2022 08/21/2022 Overview (07/31/2022): S/p counseling, working diagnosis: cHTN Reports hx of borderline preeclampsia in G2, reports delivered after 39 wks Pt reports good compliance with daily ASA on 04/2409/28/20 ED - 141/84 09/21/21 ED - 140/86 12/11/21 5w3d IOB- 143/79 05/17/22 27w6d MOC - 143/61, CBC, CMP wnl, UPC 0.1, uric acid wnl 05/22: reports worsening BLE edema, BUE edema, fascial swelling, ACUNA. Weight stable from last month. CBC/CMP wnl, UPC 0.07 06/29: normal BP, CBC, CMP wnl, UPC 0.16 07/03/22 34w4d TYRON - 148/67, CBC/CMP WNL, UPC 0.15 07/24/22: BPs normal to mild range 07/30: [facility] visit to r/o preE, normotensive, CBC/CMP [...] she is trying to walk. Seen in [facility] 05/17 and 05/28 for symptoms; SVE [...] Team Description 10/13/2024 1:30 PM CDT Telemedicine [facility] Virtual Care [address] [place] [address] Savannah Swain NP Facial rash (Primary Dx) 10/13/2024 Patient Self-Triage [facility] [address] [place] [address] Mychart, Generic Provider 08/25/2024 Telephone [facility] Hematology [address] [facility] Floor [address] [place] [address] Chasity Melendez 07/29/2024 3:24 AM ACCOUNT UNDERWRITER - 07/29/2024 7:08 AM ACCOUNT UNDERWRITER Emergency [facility] Emergency Department [address] [place] [address] Janae Moran MD Palpitations (Primary Dx) Discharge [...] Never 07/30/2022 How often do you attend scientologist or mu-ism serv ices? Never 07/30/2022 Do you belong to any clubs o r organizations such as scientologist groups, unions, fraternal or athletic groups, or [...] staff should administer the PHQ-9) 4 03/31/2024 [facility] - Occupational Stress [...] place to sleep or slept in a jail (including now)? No 07/30/2022 [place] Depression Scale Answer Date Recorded [place] Depression Scale Total 11 09/04/2022 The thought [...] on file Legal Sex Female 4:51 PM ACCOUNT UNDERWRITER Gender Identity Female 11/17/2021 1:47 PM CDT [...] to Pro paul in First Stage Delivery Location:[place] 2019 Term M CS-LT ranv Livin g Complications:Pre eclampsia 2021 SAB 023 Term 39w 3d 0h 02m 0h 02m 3.84 kg (8 lb 7.5 oz) M C-Sec tion Spinal N Livin g 9 9 ANGEL CUBA , Chikis kerr MD Complications:None Delivery Location:[facility] Main C ampus ([facility] L AND D PROCEDURE) Last Filed Vital Signs Vital Sign Reading Time Taken Comments Blood Pressure 113/69 07/29/2024 5:15 AM ACCOUNT UNDERWRITER Pulse 90 07/29/2024 6:00 AM ACCOUNT UNDERWRITER Temperature 37.3 C (99.1 F) 07/29/2024 2:01 AM ACCOUNT UNDERWRITER Respiratory Rate 19 07/29/2024 6:00 AM ACCOUNT UNDERWRITER Oxygen Saturation 100% 07/29/2024 6:00 AM ACCOUNT UNDERWRITER Inhaled Oxygen Concentration - - Weight 51.7 kg (114 lb) 07/29/2024 2:05 AM ACCOUNT UNDERWRITER Height 160 cm (5' 3 ) 07/29/2024 2:05 AM ACCOUNT UNDERWRITER Body Mass Index 20.19 07/29/2024 2:05 AM ACCOUNT UNDERWRITER Plan of Treatment Health Maintenance Due Date [...] T HIGH-SENSITIVITY 2-HOUR Timed 07/29/2024 4:45 AM ACCOUNT UNDERWRITER XR CHEST 1 VIEW ED 07/29/2024 2:34 AM ACCOUNT UNDERWRITER ECG 12-LEAD STAT 07/29/2024 2:17 AM ACCOUNT UNDERWRITER EGFR STAT 07/29/2024 2:13 AM ACCOUNT UNDERWRITER DIFFERENTIAL AUTO STAT 07/29/2024 2:1 3 AM ACCOUNT UNDERWRITER TROPONIN T HIGH-SENSITIVITY SERIES (BASELINE, 2HR, 4HR, 6HR) STAT 07/29/2024 2:13 AM ACCOUNT UNDERWRITER COMPREHENSIVE METABOLIC PANEL STAT 07/29/2024 2:13 AM ACCOUNT UNDERWRITER CBC WITH AUTO DIFFERENTIAL STAT 07/29/2024 2:13 AM ACCOUNT UNDERWRITER HEPATITIS C ANTIBODY Routine 12/11/2021 11:23 AM CDT , unspecified gestational age from Last 3 Months or Most Recently Relevant to Health Maintenance Results * Troponin T high-sensitivity 2-hour (07/29/2024 4:45 AM ACCOUNT UNDERWRITER) Trop T hs <6 <=14 ng/L Comment: Interpretive Data For further hscTnT resources including the diagnostic algorithm and an aid in interpretation, copy and paste this link: https://nrl.testcatalog.org/show/hsTrop Current Interpretive Data last revised 2020. Trop T hs delta 0 ng/L [facility] ([facility]) Trop T hs interp Insignificant [facility] ([facility]) Blood 07/29/2024 4:45 AM ACCOUNT UNDERWRITER 07/29/2024 4:51 AM ACCOUNT UNDERWRITER us Janae Moran MD LAB BLOOD ORDERABLES Final Resul t [facility] ([facility]) [facility] Department [place] [address] * XR Chest 1 Vw Portable (if patient condition/safety warrant portable) (07/29/2024 2:34 AM ACCOUNT UNDERWRITER) Anatomical Region Laterality Modality Body, Chest N/A Computed Radiogr aphy 07/29/2024 3:20 AM ACCOUNT UNDERWRITER Narrative 07/29/2024 3:20 AM ACCOUNT UNDERWRITER EXAM DESCRIPTION: XR CHEST 1 VIEW REASON [...] María Al M.D. SN: SN Report ID: [id number] Reading Location: [id number] Procedure Note María Al MD - 07/29/2024 [...] María Al M.D. SN: SN Report ID: [id number] Reading Location: [id number] us Janae Moran MD IMG XR PROCEDURES Final Result * ECG 12 lead (07/29/2024 2:17 AM ACCOUNT UNDERWRITER) 07/29/2024 2:17 AM ACCOUNT UNDERWRITER Narrative [facility] - 07/29/2024 6:57 AM ACCOUNT UNDERWRITER Vent Rate: 105 bpm RR Interval: 570 msec VA Interval: 124 msec QRS Duration: 115 msec QT Interval: 339 msec QTC Interval: 400 msec P-R-T [place]: 73 - 57 - 40 degrees IMPRESSION: SINUS TACHYCARDIA INCOMPLETE RIGHT BUNDLE BRANCH BLOCK [90+ ms QRS DURATION, TERMINAL R IN V1/V2, 40+ ms S IN I/aVL/V4/V5/V6] ABNORMAL RHYTHM ECG NO CHANGE FROM PREVIOUS TRACING NOTED Electronically Signed By: Víctor Matson MD us Janae Moran MD ECG ORDERABLES Final Result Performing Organization Address City/[facility] Co de Phone Number [facility] * Troponin T high-sensitivity series (baseline, 2hr, 4hr, 6hr) (07/29/2024 2:13 AM ACCOUNT UNDERWRITER) Pathologist [facility] Trop T hs <6 <=14 ng/L Comment: Interpretive Data For further hscTnT resources including the diagnostic algorithm and an aid in interpretation, copy and paste this link: https://nrl.testcatalog.org/show/hsTrop Current Interpretive Data last revised 2020. Blood 07/29/2024 2:13 AM ACCOUNT UNDERWRITER 07/29/2024 2:22 AM ACCOUNT UNDERWRITER us Janae Moran MD LAB BLOOD ORDERABLES Final Resul t Performing Organization Address City/[facility] Co de Phone Number [facility] ([address] Department [place] [address] * eGFR (07/29/2024 2:13 AM ACCOUNT UNDERWRITER) Pathologist [facility] eGFR >90 >=60 mL/min/1. 73 m2 [...] last reviewed 2021. Blood 07/29/2024 2:13 AM ACCOUNT UNDERWRITER 07/29/2024 2:22 AM ACCOUNT UNDERWRITER us Janae Moran MD LAB BLOOD ORDERABLES Final Resul t [facility] [address] [facility] Department [place] [address] * Differential, auto (07/29/2024 2:13 AM ACCOUNT UNDERWRITER) Neutrophil abs 4.1 1.5 - 6.5 K/cumm [...] revised on 2017. Blood 07/29/2024 2:13 AM ACCOUNT UNDERWRITER 07/29/2024 2:22 AM ACCOUNT UNDERWRITER us Janae Moran MD LAB BLOOD ORDERABLES Final Resul t [facility] ([facility]) [facility] Department [place] [address] * (ABNORMAL) CBC with auto differential (07/29/2024 2:13 AM ACCOUNT UNDERWRITER) WBC 6.7 3.8 - 9.9 K/cumm Hgb [...] RDW SD 42.3 35.7 - 48.1 fL [facility] NRBC abs 0.00 0.00 - 0.01 K/cumm [facility] Blood Venous blood specimen / Unknown 07/29/2024 2:13 AM ACCOUNT UNDERWRITER 07/29/2024 2:22 AM ACCOUNT UNDERWRITER us Janae Moran MD LAB BLOOD ORDERABLES Final Resul t [facility] [address] [facility] Department [place] [address] * (ABNORMAL) Comprehensive metabolic panel (07/29/2024 2:13 AM ACCOUNT UNDERWRITER) Sodium 137 135 - 145 mmol/L Potassium, pl 3.7 3.3 - 4.9 mmol/L [facility] Chloride 105 97 - 110 mmol/L [facility] ([facility] CO2 21(L) 22 - 32 mmol/L [facility] ([facility] Anion gap 11 2 - 15 mmol/L [facility] ([facility]) BUN 10 6 - 25 mg/dL [facility] ([facility]) Creatinine 0.85 0.60 - 1.10 mg/dL [facility] ([facility]) Glucose 99 70 - 199 mg/dL [facility] Comment: Interpretive Data Fasting glucose [...] [facility] ([facility]) Blood 07/29/2024 2:13 AM ACCOUNT UNDERWRITER 07/29/2024 2:22 AM ACCOUNT UNDERWRITER us Janae Moran MD LAB BLOOD ORDERABLES Final Resul t [facility] ([facility]) 1 [facility] Department [place] [address] * Hepatitis C antibody (12/11/2021 11:23 AM CDT) Hep C Ab Nonreactive Nonreactive [facility] Comment:Antibodies to HCV no t detected. Does NOT exclude the possibility of recent exposure to HCV. Blood 12/11/2021 11:2 3 AM CDT 12/11/2021 11:55 AM CDT Jessie Oseguera MD LAB MICROBIOLOGY - GEN ERAL ORDERABLES Edited Result - Final [facility] Department [place] [address] from Last 3 Months or Most Recently Relevant to Health Maintenance Insurance [address] [place] [address] [facility] [facility] [employer] [facility] [address] [place] [address] Advance Directives For more information, please contact: [phone] * Full Code (Latest Code Status on File) Date Activated Date Inactivated Comments 08/06/2022 11:52 AM 08/08/2022 3:16 PM * Full Code Date Activated Date Inactivated Comments 08/06/2022 7:45 AM 08/06/2022 11:52 AM Full CPR in case of cardiopulmonary arrest Care Teams Cook Pickled Meat Relationship Specialty Start Date End Date Yimi Wasserman NP [address] [address] PCP - General Family Medicine 03/31/24 Petra Fabian MD [address] [id number] Resident Obstetrics and Gynecology 06/04/22
--- OUTSIDE RECORDS SUMMARY | 2024-10-19 19:37 | XMS_ITS | Encounter Summary ---
Author Organization [employer] Address [address] [place] [address] Care Team Providers Care Membership Correspondent Name Role Phone Winston Russell MD Primary Care Provider [phone] Encounter Details Date Type Department Care Team (Late st Contact Info) Description 07/30/2024 [facility] [address] [place] [address] Royer Ansari [place] [address] [place] [address] [place] [address] Chronic right-sided low back pain [...] Primary documented in this encounter Care Teams Membership Correspondent Relationship Specialty Start Date End Date Winston Russell MD [address] [place] [address] [address] [address] PCP - General Family Practice 11/21/22 documented as of this encounter
--- OUTSIDE RECORDS SUMMARY | 2024-10-19 19:37 | XMS_ITS | Clinical Summary ---
Author Organization [facility] Address [address] [place] [address] Care Team Providers Care Can Technician Name Role Phone Winston Russell MD Primary Care Provider [phone] Medications acetaminophen (TYLENOL) 500 mg Capsule Take [...] with daily ASA on 04/24 - 05/17 [facility]: one MR BP, CBC/CMP wnl, UPC 0.1 - 05/22: reports worsening BLE edema, BUE edema, fascial swelling, ACUNA. Weight stable from last month. CBC/CMP wnl, UPC 0.07 06/05: normotensive 06/11: Seen in [facility] 06/11 for ACUNA; BP normotensive 06/19: [...] incidentally found [place] (late 2020) at [place] while patient was undergoing work-up for multiple sclerosis - Pt reports 1 yr hx of visual changes, lower extremity neuropathy, weakness, and loss of sensation, multiple falls - Follows with neurology and endocrinology at [place] - MRI 06/22/2021 with 3mm nonenhancing lesion [...] and repeat Monk's visual field testing w/ solar sales representative in 4 weeks and for repeat brain MRI pituitary w/wo contrast when able -Seen by solar sales representative 07/02, normal exam and visual field testing Plan: [] Repeat brain MRI pituitary w/wo contrast - ordered today, given scheduling info [] Decontamination Technician return visit in 2mo for refraction [...] today, continue below regimen -06/11: Seen in [facility] for ACUNA, resolved with sumatriptan -07/24/22: [...] contraception: Desires BTL at time of [facility] Medicaid consents signed 06/19, partner no longer getting vasectomy [x] Method of feeding: breast, already has breast pump delivered [] Face And Fill Packer: [] Car seat Discussed [] PP Depression Counseling Attention deficit disorder 11/21/2021 Overview (11/21/2022): Previously diagnosed with bipolar disorder, anxiety, and depression. [place] use over 1 yr ago. Follows with [facility], online psychiatry platform and dx with ADHD and taking adderall 5mg daily vs BID (prescribed BID). - seen by Psych 05/30 and stopped Adderall Last Assessment & Plan: Following with psychaitry Continue aderral 10 mg bid, wellbutrin 150 mg every day as per psychaitry Encounters Date Type Department Care Team Description 07/30/2024 [facility] [address] [facility] [address] [place] [id number] Royer Ansari, [place] Chronic right-sided low back [...] or Tdap) 05/22/2032 05/22/2022, 05/06/2014 Insurance [facility] MEDICAID Care Teams Can Technician Relationship Specialty Start Date End Date Winston Russell MD [address] [place] [phone] PCP - General Family Practice 11/21/22
--- NOTE | 2024-10-19 19:39 | ED_ITS ---
HPI - General Adult General Chief complaint: Extremity Injury, Lower Stated complaint: left ankle pain Time Seen by Provider: 10/19/24 18:15 History of Present Illness HPI narrative: Patient is a 28-year-old female who presents ER with left ankle pain. She had her toddler jump on her ankle a little over week ago 3 times before she could move. It has caused to have pain and pain has progressed. She has swelling over her ankle and no numbness and no tingling. She has history of a bone anchor for an ATFL injury that was performed in [place]. This was several years ago. Has not found alleviating factors. Related Data Home Medications ?Medication ?Instructions ?Recorded ?Confirmed ?Last Taken ?Type bupropion HCl 150 mg 24 hr tablet, 150 mg PO QAM 11/29/23 11/29/23 1 Day Ago History extended release ~11/28/23 dextroamphetamine-amphetamine 10 10 mg PO BID 11/29/23 11/29/23 1 Day Ago History mg tablet ~11/28/23 Allergies Allergy/AdvReac Type Severity Reaction Status Date / Time No Known Allergies Allergy Verified 10/19/24 18:02 Review of Systems Constitutional: Constitutional: Reports no additional constitutional complaints Musculoskeletal: Musculoskeletal: Reports no additional musculoskeletal complaints Neurologic: Reports system reviewed and no additional complaints, except as documented PMFSH Past Medical History Medical History (Updated 10/19/24 @ 19:45 by Dre Batista MD) Fibromyalgia Surgical History Surgical History (Updated 10/19/24 @ 19:42 by Dre Batista MD) History of ankle surgery Social History Social History Smoking status: Current every day smoker Tobacco type: e-cigarettes/vaping Additional smoking assessment comments: MAINLY DURING NAPTIME, NOT VERY OFTEN Alcohol intake: never Substance use: current Substance use type: marijuana Other substance usage details: SMOKE Last use: 11/29/2023 Do You Feel Safe in your Home?: Yes Lack of Transportation: No Lack of Food: Never True Current Housing: I Have Housing Concerned About Future Housing: No Difficulty Paying Gas/Electric Bills: No Difficulty Paying for Meds: No Currently Unemployed: No Education: Trade/Vocational Certificate Difficulty w/ Childcare or Family Care: No Spiritual care concerns: No Exam Narrative: GENERAL: Well-appearing, well-nourished, and in no acute distress. HEAD: Normocephalic, atraumatic. ENT: Mucous membranes moist. HEART: Regular rate and rhythm. Normal peripheral pulses. EXTREMITIES: Normal range of motion. No edema. Left ankle with tenderness over the ATFL and lateral malleolus. SKIN: Warm, dry, no rash. NEURO: Alert and oriented x3. PSYCH: Normal mood and affect. Course Course Emergency Course: Imaging with soft tissue swelling. Otherwise recommend conservative treatment and follow up with Ortho as she may require MRI since there is soft tissue swelling and she is persistently tender. Vital Signs Vital signs: Vital Signs Temperature 98.3 F 10/19/24 18:18 Pulse Rate 95 10/19/24 18:18 Respiratory Rate 16 10/19/24 18:18 Blood Pressure 115/76 10/19/24 18:18 Pulse Oximetry 100 10/19/24 18:18 Temperature 98.3 F 10/19/24 18:18 Pulse Rate 95 10/19/24 18:18 Respiratory Rate 16 10/19/24 18:18 Blood Pressure 115/76 10/19/24 18:18 Pulse Oximetry 100 10/19/24 18:18 Medical Decision Making Vital Signs Vital Signs: Vital Signs Temperature 98.3 F 10/19/24 18:18 Pulse Rate 95 10/19/24 18:18 Respiratory Rate 16 10/19/24 18:18 Blood Pressure 115/76 10/19/24 18:18 Pulse Oximetry 100 10/19/24 18:18 Temperature 98.3 F 10/19/24 18:18 Pulse Rate 95 10/19/24 18:18 Respiratory Rate 16 10/19/24 18:18 Blood Pressure 115/76 10/19/24 18:18 Pulse Oximetry 100 10/19/24 18:18 Imaging Data Radiologist's impression: ITS Impressions Ankle X-Ray 10/19/24 18:34 IMPRESSION: Soft tissue swelling, without underlying fracture. If concern for recurrent tendinous injury (given prior surgical intervention), MRI examination is recommended. Discharge Plan Discharge Clinical Impression: Ankle sprain Patient Disposition: Home, Self-Care Condition: Stable Instructions: Ankle Sprain (ED), P.R.I.C.E. Treatment (ED) Additional Instructions: Return the ER if you have new injury, have chest pain and shortness of breath, or have additional concerns. Patient Language: Palestinian Prescriptions: New naproxen 375 mg tablet 375 mg PO BID Qty: 14 0RF No Action dextroamphetamine-amphetamine 10 mg tablet 10 mg PO BID bupropion HCl 150 mg tablet extended release 24 hr 150 mg PO QAM Follow-up/Referrals: Iban Turcios MD [Physician] - 1 Week PHYSICIAN,SHRIMP TRAWLER CAPTAIN [Primary Care Provider] -
== END 2024-10-19 19:50 | disposition home or self-care (01) ==
PROVIDERS: Emergency Provider Emergency Medicine
DX: S93.402A Sprain of unspecified ligament of left ankle, initial encounter (principal); M79.7 Fibromyalgia; F17.290 Nicotine dependence, other tobacco product, uncomplicated; W51.XXXA Accidental striking against or bumped into by another person, initial encounter
CPT/HCPCS: 73610; 96372; 99283; J1885